=== PATIENT | female | born 1980 | race Caucasian/White ===

== ENCOUNTER 2017-07-03 21:05 | Emergency (ER) | payer BC ==
[2017-07-03] MEDS ORDERED: cefTRIAXone 2 GM in Premix Bag 1 BAG IV ONE (21:56)
--- NOTE | 2017-07-03 21:57 | EDM.PDOC ---
ED HPI GENERAL MEDICAL PROBLEM - General Chief Complaint: Skin Complaint Stated Complaint: PAIN/SORE BUTTOCKS/LEGS Time Seen by Provider: 07/03/17 21:35 Source of Information: Reports: Patient History Limitations: Reports: No Limitations - History of Present Illness INITIAL COMMENTS - FREE TEXT/NARRATIVE: History of present illness: [6-year-old female comes in complaining of a cyst on her right inner upper thigh. The [place] that this area has gotten bigger, harder, and more painful and felt it needed to be addressed.] Review of systems: As per history of present illness and below otherwise all systems reviewed and negative. Past medical history: As per history of present illness and as reviewed below otherwise noncontributory. Surgical history: As per history of present illness and as reviewed below otherwise noncontributory. Social history: No reported history of drug or alcohol abuse. Family history: As per history of present illness and as reviewed below otherwise noncontributory. Physical exam: HEENT: Atraumatic, normocephalic, pupils reactive, negative for conjunctival pallor or scleral icterus, mucous membranes moist, throat clear, neck supple, nontender, trachea midline. Lungs: Clear to auscultation, breath sounds equal bilaterally, chest nontender. Heart: S1S2, regular, negative for clicks, rubs, or JVD. Abdomen: Soft, nondistended, nontender. Negative for masses or hepatosplenomegaly. Negative for costovertebral tenderness. Pelvis: Stable nontender. Genitourinary: Deferred. Rectal: Deferred. Extremities: Atraumatic, negative for cords or calf pain. Neurovascular unremarkable. Neuro: Awake, alert, oriented. Cranial nerves II through XII unremarkable. Cerebellum unremarkable. Motor and sensory unremarkable throughout. Exam nonfocal. Skin: Small approximately 3 cm in circumference abscess to top of inner right thigh more posterior Patient acknowledges that her blood sugars been out of control secondary to noncompliance with medication indicated she's been feeling unwell and has not refilled any of her diabetic medications for her blood sugars been running in the 2 to 300s. This is consistent with appearances of wounds on her body as noted. Area to upper right thigh cleaned with Betadine swabs then 1% lidocaine with epi injected until anesthesia appreciated. An 11 blade used to incise an area of approximately 1-1/2 cm with purulent drainage expressed culture swab obtained. Diagnostics: [Culture of wound] Therapeutics: [Dilaudid, Zofran, Rocephin 2 g IV] Impression: [Cellulitic abscess] Plan: [Oral antibiotics follow-up with PCP] Definitive disposition and diagnosis as appropriate pending reevaluation and review of above. Right Perineal Area Pain Score (Numeric/FACES): 8 - Related Data Allergies Allergy/AdvReac Type Severity Reaction Status Date / Time Antihistamines - Alkylamine Allergy Hives Verified 07/03/17 21:38 aspirin Allergy Hives Verified 07/03/17 21:38 Pain medication Allergy Cannot Uncoded 05/07/16 17:31 Remember Home Meds: Home Meds Hydrocodone/Acetaminophen [[place] 5-325 Tablet] 1 tab PO Q6H PRN #15 tablet 05/07 [Rx] Insulin Aspart [Novolog] 5 - 10 unit SQ TIDAC #1 box 05/07/16 [Rx] Insulin Glarg,Human.Rec.Analog [LantUS Solostar] 100 units SUBCUT DAILY [History] Sertraline HCl [Zoloft] 150 mg PO DAILY 05/07/16 [History] Past Medical History - Past Health History Medical/Surgical History: Denies Medical/Surgical History HEENT History: Reports: None Cardiovascular History: Reports: High Cholesterol Respiratory History: Reports: None Gastrointestinal History: Reports: None Genitourinary History: Reports: Diabetic Nephropathy, UTI, Recurrent Other Genitourinary History: Yeast infections 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: Other OB/BYN History: Genital warts Musculoskeletal History: Reports: None Neurological History: Reports: Neuropathy, Diabetic Psychiatric History: Reports: Anxiety, Depression, PTSD Endocrine/Metabolic History: Reports: Diabetes, Type II Hematologic History: Reports: None Immunologic History: Reports: None Oncologic (Cancer) History: Reports: None Dermatologic History: Reports: None - Infectious Disease History Infectious Disease History: Reports: Chicken Pox - Past Surgical History Head Surgeries/Procedures: Reports: None HEENT Surgical History: Reports: Tonsillectomy Cardiovascular Surgical History: Reports: None Respiratory Surgical History: Reports: None GI Surgical History: Reports: None Female Surgical History: Reports: Section Neurological Surgical History: Reports: None Musculoskeletal Surgical History: Reports: None Social & Family History - Family History Family Medical History: Noncontributory - Tobacco Use Smoking Status *Q: Current Every Day Smoker Years of Tobacco use: 23 Packs/Tins Daily: 1 Used Tobacco, but Quit: No Second Hand Smoke Exposure: No - Caffeine Use Caffeine Use: Reports: Coffee, Energy Drinks, Soda - Alcohol Use Days Per Week of Alcohol Use: 0 - Recreational Drug Use Recreational Drug Use: No ED ROS GENERAL - Review of Systems Review Of Systems: See Below (See history of present illness) ED EXAM, SKIN/RASH Exam: See Below (See history of present illness) Course - Vital Signs Last Recorded V/S: Last Vital Signs Temp 36.8 C 07/03/17 21:34 Pulse 117 H 07/03/17 21:34 Resp 20 07/03/17 21:34 BP 134/86 07/03/17 21:34 Pulse Ox 97 07/03/17 21:34 - Orders/Labs/Meds Meds: Medications Discontinued Medications Generic Name Dose Route Start Last Admin Trade Name Ofelia PRN Reason Stop Dose Admin Hydromorphone HCl 1 mg 07/03/17 22:56 07/03/17 23:06 Dilaudid IVPUSH 07/03/17 22:57 1 mg ONETIME ONE Administration Ceftriaxone Sodium/Dextrose 2 50 mls @ 100 mls/hr 07/03/17 21:56 07/03/17 22: 12 gm/ Premix IV 07/03/17 22:25 100 mls/hr ONETIME ONE Administration Lidocaine/Epinephrine 20 ml 07/03/17 23:01 07/03/17 23:06 Xylocaine 1% With Epinephrine 1:100,000 INJECT 07/03/17 23:02 20 ml ONETIME ONE Administration Ondansetron HCl 4 mg 07/03/17 22:56 07/03/17 23:06 Zofran IVPUSH 07/03/17 22:57 4 mg ONETIME ONE Administration Departure - Departure Time of Disposition: 23:28 Disposition: Home, Self-Care 01 Condition: Good Clinical Impression: Cellulitis, Abscess - Discharge Information Referrals: Deon Mcleod DO [Primary Care Provider] - Forms: ED Department Discharge Additional Instructions: The following information is given to patients seen in the emergency department who are being discharged to home. This information is to outline your options for follow-up care. We provide all patients seen in our emergency department with a follow-up referral. The need for follow-up, as well as the timing and circumstances, are variable depending upon the specifics of your emergency department visit. If you don't have a primary care physician on staff, we will provide you with a referral. We always advise you to contact your personal physician following an emergency department visit to inform them of the circumstance of the visit and for follow-up with them and/or the need for any referrals to a consulting specialist. The emergency department will also refer you to a specialist when appropriate. This referral assures that you have the opportunity for follow-up care with a specialist. All of these measure are taken in an effort to provide you with optimal care, which includes your follow-up. Under all circumstances we always encourage you to contact your private physician who remains a resource for coordinating your care. When calling for follow-up care, please make the office aware that this follow-up is from your recent emergency room visit. If for any reason you are refused follow-up, please contact the [facility] Emergency Department at and asked to speak to the emergency department charge nurse. Take medication as directed Follow up with PCP in 3-5 days Return to ED as needed as discussed
[2017-07-03] MEDS ORDERED: Ondansetron 4 MG/2 ML SDV IVPUSH ONE (22:56)
[2017-07-03] MEDS ORDERED: HYDROmorphone 2 MG/ML Syringe IVPUSH ONE (22:56)
[2017-07-03] MEDS ORDERED: Lidocaine 1% with EPINEPHrine 1:100,000 20 ML MDV INJECT ONE (23:01)
[2017-07-03 23:56] VITALS: BP 127/81
== END 2017-07-04 00:02 | disposition home or self-care (01) ==
LOC: MW.ED 21:05
DX: L03.115 Cellulitis of right lower limb (principal); L02.415 Cutaneous abscess of right lower limb; F17.210 Nicotine dependence, cigarettes, uncomplicated; Z88.6 Allergy status to analgesic agent; Z88.8 Allergy status to other drugs, medicaments and biological substances; Z79.4 Long term (current) use of insulin; Z79.899 Other long term (current) drug therapy
CPT/HCPCS: 10060; 87070; 96365; 96375; 99283; J0696; J1170; J2405; 87077; 87186

== ENCOUNTER 2018-01-02 18:52 | Emergency (ER) | payer BC ==
[2018-01-02 20:35] VITALS: BP 133/85
--- NOTE | 2018-01-02 21:28 | EDM.PDOC ---
ED HPI GENERAL MEDICAL PROBLEM - General Chief Complaint: Back Pain or Injury Stated Complaint: BACK PAIN Time Seen by Provider: 01/02/18 21:19 - History of Present Illness INITIAL COMMENTS - FREE TEXT/NARRATIVE: HISTORY AND PHYSICAL: History of present illness: Patient 37-year-old female who presents with a concern of back pain especially chronic for several months she states this started when she fell off a chair she also is history of diabetes she denies fever chills nausea vomiting numbness weakness incontinence or retention bowel or bladder. Denies urinary tract infection signs or symptoms Review of systems: As per history of present illness and below otherwise all systems reviewed and negative. Past medical history: As per history of present illness and as reviewed below otherwise noncontributory. Surgical history: As per history of present illness and as reviewed below otherwise noncontributory. Social history: No reported history of drug or alcohol abuse. Family history: As per history of present illness and as reviewed below otherwise noncontributory. Physical exam: HEENT: Atraumatic, normocephalic, pupils reactive, negative for conjunctival pallor or scleral icterus, mucous membranes moist, throat clear, neck supple, nontender, trachea midline. Lungs: Clear to auscultation, breath sounds equal bilaterally, chest nontender. Heart: S1S2, regular, negative for clicks, rubs, or JVD. Abdomen: Soft, nondistended, nontender. Negative for masses or hepatosplenomegaly. Negative for costovertebral tenderness. Pelvis: Stable nontender. Genitourinary: Deferred. Rectal: Deferred. Extremities: Atraumatic, negative for cords or calf pain. Neurovascular unremarkable. Neuro: Awake, alert, oriented. Cranial nerves II through XII unremarkable. Cerebellum unremarkable. Motor and sensory unremarkable throughout. Exam nonfocal. Back: Patient has paravertebral tenderness at the level of the lumbar spine is no vertebral body or point tenderness patient is able stand on toes back on her heels and sensory are normal deep tendon reflexes are normal Diagnostics: Deferred Therapeutics: None Impression: #1 chronic back pain #2 hyperglycemia history of diabetes Definitive disposition and diagnosis as appropriate pending reevaluation and review of above. [] Low Back Pain Score (Numeric/FACES): 6 - Related Data Allergies Allergy/AdvReac Type Severity Reaction Status Date / Time Antihistamines - Alkylamine Allergy Hives Verified 01/02/18 20:35 aspirin Allergy Hives Verified 01/02/18 20:35 Pain medication Allergy Cannot Uncoded 01/02/18 20:35 Remember Home Meds: Home Meds . 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: Other OB/BYN History: Genital warts Musculoskeletal History: Reports: None Neurological History: Reports: Neuropathy, Diabetic Psychiatric History: Reports: Anxiety, Depression, PTSD Endocrine/Metabolic History: Reports: Diabetes, Type II Hematologic History: Reports: None Immunologic History: Reports: None Oncologic (Cancer) History: Reports: None Dermatologic History: Reports: None - Infectious Disease History Infectious Disease History: Reports: Chicken Pox - Past Surgical History Head Surgeries/Procedures: Reports: None HEENT Surgical History: Reports: Tonsillectomy Cardiovascular Surgical History: Reports: None Respiratory Surgical History: Reports: None GI Surgical History: Reports: None Female Surgical History: Reports: Section Neurological Surgical History: Reports: None Musculoskeletal Surgical History: Reports: None Social & Family History - Family History Family Medical History: Noncontributory - Tobacco Use Smoking Status *Q: Current Every Day Smoker Years of Tobacco use: 25 Packs/Tins Daily: 1 Used Tobacco, but Quit: No Second Hand Smoke Exposure: No - Caffeine Use Caffeine Use: Reports: Coffee, Energy Drinks, Soda, Tea - Alcohol Use Days Per Week of Alcohol Use: 0 - Recreational Drug Use Recreational Drug Use: Yes Drug Use in Last 12 Months: No Recreational Drug Type: Reports: Marijuana/Hashish ED ROS GENERAL - Review of Systems Review Of Systems: ROS reveals no pertinent complaints other than HPI. ED EXAM, GENERAL - Physical Exam Exam: See Below (See dictation) Course - Vital Signs Text/Narrative:: I discussed with patient diagnostic testing and treatment here patient states she is a long-standing diabetic and is poorly controlled general does acknowledge her less than perfect medical compliance she agrees to follow-up LEONIDAS with her private doctor in monitor blood sugar and take her insulin as directed. She will return as needed as discussed she'll be prescribed Ultram and Flexeril Last Recorded V/S: Last Vital Signs Temp 36.3 C 01/02/18 20:32 Pulse 112 H 01/02/18 20:32 Resp 12 01/02/18 20:32 BP 133/85 01/02/18 20:32 Pulse Ox 96 01/02/18 20:32 - Orders/Labs/Meds Labs: Laboratory Tests 01/02/18 Range/Units 20:41 POC Glucose 486 H (60-110) mg/dL Departure - Departure Time of Disposition: 21:27 Disposition: Home, Self-Care 01 Condition: Good Clinical Impression: Back pain, Diabetes, Medical non-compliance - Discharge Information Referrals: PCP,None [Primary Care Provider] - Additional Instructions: The following information is given to patients seen in the emergency department who are being discharged to home. This information is to outline your options for follow-up care. We provide all patients seen in our emergency department with a follow-up referral. The need for follow-up, as well as the timing and circumstances, are variable depending upon the specifics of your emergency department visit. If you don't have a primary care physician on staff, we will provide you with a referral. We always advise you to contact your personal physician following an emergency department visit to inform them of the circumstance of the visit and for follow-up with them and/or the need for any referrals to a consulting specialist. The emergency department will also refer you to a specialist when appropriate. This referral assures that you have the opportunity for followup care with a specialist. All of these measure are taken in an effort to provide you with optimal care, which includes your followup. Under all circumstances we always encourage you to contact your private physician who remains a resource for coordinating your care. When calling for followup care, please make the office aware that this follow-up is from your recent emergency room visit. If for any reason you are refused follow-up, please contact the [facility] emergency department at and asked to speak to the emergency department charge nurse. Continue current medications monitor blood sugar as discussed Ultram Flexeril as prescribed and follow-up private medical doctor LEONIDAS as discussed and return as needed as discussed off work 48 hours]
== END 2018-01-02 21:33 | disposition home or self-care (01) ==
LOC: MW.ED 18:52
DX: M54.5 Low back pain (principal); E11.65 Type 2 diabetes mellitus with hyperglycemia; E11.21 Type 2 diabetes mellitus with diabetic nephropathy; E11.40 Type 2 diabetes mellitus with diabetic neuropathy, unspecified; F17.210 Nicotine dependence, cigarettes, uncomplicated; E78.00 Pure hypercholesterolemia, unspecified; Z88.8 Allergy status to other drugs, medicaments and biological substances; Z88.6 Allergy status to analgesic agent; Z91.19 Patient's noncompliance with other medical treatment and regimen
CPT/HCPCS: 82962; 99283

== ENCOUNTER 2018-05-06 20:58 | Emergency (ER) | payer BC ==
--- NOTE | 2018-05-06 21:18 | EDM.PDOC ---
ED HPI GENERAL MEDICAL PROBLEM - General Chief Complaint: Skin Complaint Stated Complaint: HAS A PAINFUL CYST Time Seen by Provider: 05/06/18 21:15 Source of Information: Reports: Patient History Limitations: Reports: No Limitations - History of Present Illness INITIAL COMMENTS - FREE TEXT/NARRATIVE: HISTORY AND PHYSICAL: []37-year-old female presents with an abscess to her groin History of Present Illness: []Patient states she's had abscess in this area previously and has had them lanced She states this has been present for the last 3 days and now was increased in size Review of Systems: As per history of present illness and below otherwise all systems reviewed and negative. Past medical history: As per history of present illness and as reviewed below otherwise noncontributory. Surgical history: As per history of present illness and as reviewed below otherwise noncontributory. Social history: No reported history of drug or alcohol abuse. Family history: As per history of present illness and as reviewed below otherwise noncontributory. Physical exam: Alert and oriented female answering questions appropriately in full sentences without any shortness of breath. She is nontoxic in appearance. Vital signs reviewed. HEENT: Atraumatic, normocehpalic, pupils reactive, negative for conjunctival pallor or scleral icterus, mucous membranes moist, throat clear, neck supple, nontender, trachea midline. Lungs: Clear to auscultation, breath sounds equal bilaterally, chest non tender. Heart: S1S2, regular, negative for clicks, rubs, or JVD. Abdomen: Soft, nondistended, nontender. Negative for masses or hepatossplenmegaly. Negative for costovertebral tenderness. Pelvis: Stable nontender. Right groin with abscess. Approximately 2 cm diameter firm to touch. there is whitening to the top of the skin Genitourinary: Deferred. Rectal: Deferred Extremities: Atraumatic, negative for cords or calf pain. Neurovascular unremarkable. Neuro: Awake, alert, oriented. Cranial nerves II through XII unremarkable. Cerebellum unremarkable. Motor and sensory unremarkable throughout. Exam nonfocal. I&D was completed with using 1% lidocaine 3 mL. #11 blade large amount of purulent material was expelled then half inch iodoform gauze was utilized and 2 inches into the area. This is to be removed in 2 days Notable that patient's blood pressure is slightly elevated she needs to follow- up in the clinic with her provider to follow-up with her hypertension Diagnostics: [] Therapeutics: []I & D Impression: []abcess right groin Plan: []discharge home cephalexin 500mg tid for 7 days Packing to b removed in two days Follow up with your primary care provider Turned to the emergency room as directed Definitive disposition and diagnosis as appropriate pending reevaluation and review of above. Onset: Gradual Duration: Day(s): right groin Pain Score (Numeric/FACES): 5 - Related Data Allergies Allergy/AdvReac Type Severity Reaction Status Date / Time Antihistamines - Alkylamine Allergy Hives Verified 05/06/18 21:15 aspirin Allergy Hives Verified 05/06/18 21:15 Pain medication Allergy Cannot Uncoded 05/06/18 21:15 Remember Home Meds: Home Meds . 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 Musculoskeletal History: Reports: None Neurological History: Reports: Neuropathy, Diabetic Psychiatric History: Reports: Anxiety, Depression, PTSD Endocrine/Metabolic History: Reports: Diabetes, Type II Hematologic History: Reports: None Immunologic History: Reports: None Oncologic (Cancer) History: Reports: None Dermatologic History: Reports: None - Infectious Disease History Infectious Disease History: Reports: Chicken Pox - Past Surgical History Head Surgeries/Procedures: Reports: None HEENT Surgical History: Reports: Tonsillectomy Cardiovascular Surgical History: Reports: None Respiratory Surgical History: Reports: None GI Surgical History: Reports: None Female Surgical History: Reports: Section Neurological Surgical History: Reports: None Musculoskeletal Surgical History: Reports: None Social & Family History - Family History Family Medical History: Noncontributory - Caffeine Use Caffeine Use: Reports: Coffee, Energy Drinks, Soda, Tea ED ROS GENERAL - Review of Systems Review Of Systems: ROS reveals no pertinent complaints other than HPI. ED EXAM, SKIN/RASH Exam: See Below ED SKIN PROCEDURES - I&D Site: Right groin/pubis Skin Prep: Providone-Iodine (Betadine) Local Anesthesia: Lidocaine: 1% Plain Local Anesthetic Volume: 3cc Area Incised With: 11 Blade Drainage: Purulent, Large Amount Probed to Break Up Loculations: Yes Packed With: 1/2 in. Iodoform Sterile Dressinx4(s) Complications: No Course - Vital Signs Last Recorded V/S: Last Vital Signs Temp 36.4 C 05/06/18 21:11 Pulse 107 H 05/06/18 21:11 Resp 18 05/06/18 21:11 BP 172/102 H 05/06/18 21:11 Pulse Ox 96 05/06/18 21:11 - Orders/Labs/Meds Meds: Medications Discontinued Medications Generic Name Dose Route Start Last Admin Trade Name Ofelia PRN Reason Stop Dose Admin Lidocaine HCl 5 ml 05/06/18 21:18 05/06/18 21:23 Xylocaine-Mpf 1% INJECT 05/06/18 21:19 5 ml ONETIME ONE Administration Departure - Departure Time of Disposition: 21:34 Disposition: Home, Self-Care 01 Condition: Good Clinical Impression: Abscess - Discharge Information *PRESCRIPTION DRUG MONITORING PROGRAM REVIEWED*: Not Applicable *COPY OF PRESCRIPTION DRUG MONITORING REPORT IN PATIENT JACQUELINE: Not Applicable Instructions: Skin Abscess Referrals: PCP,None [Primary Care Provider] - Forms: ED Department Discharge Additional Instructions: The following information is given to patients seen in the emergency department who are being discharged to home. This information is to outline your options for follow-up care. We provide all patients seen in our emergency department with a follow-up referral. The need for follow-up, as well as the timing and circumstances, are variable depending upon the specifics of your emergency department visit. If you don't have a primary care physician on staff, we will provide you with a referral. We always advise you to contact your personal physician following an emergency department visit to inform them of the circumstance of the visit and for follow-up with them and/or the need for any referrals to a consulting specialist. The emergency department will also refer you to a specialist when appropriate. This referral assures that you have the opportunity for followup care with a specialist. All of these measure are taken in an effort to provide you with optimal care, which includes your followup. Under all circumstances we always encourage you to contact your private physician who remains a resource for coordinating your care. When calling for followup care, please make the office aware that this follow-up is from your recent emergency room visit. If for any reason you are refused follow-up, please contact the [facility] emergency department at and asked to speak to the emergency department charge nurse. discharge home cephalexin 500mg tid for 7 days Hydrocodone/APAP 5/325 1 tablet 3 times a day when necessary pain#10NR Packing to b removed in two days Follow up with your primary care provider Turned to the emergency room as directed
[2018-05-06 21:44] VITALS: BP 167/107
== END 2018-05-06 21:45 | disposition home or self-care (01) ==
LOC: MW.ED 20:58
DX: L02.214 Cutaneous abscess of groin (principal); E11.9 Type 2 diabetes mellitus without complications; Z88.6 Allergy status to analgesic agent; Z88.8 Allergy status to other drugs, medicaments and biological substances
CPT/HCPCS: 99283

== ENCOUNTER 2019-02-02 08:42 | Emergency (ER) | payer BC | END 2019-02-02 08:57 | disposition left against medical advice (07) | LOC: MW.ED 08:42 | DX: Z53.21 Procedure and treatment not carried out due to patient leaving prior to being seen by health care provider (principal) ==

== ENCOUNTER 2020-11-30 17:13 | Emergency (ER) | payer BC ==
--- NOTE | 2020-11-30 17:44 | EDM.PDOC ---
<Tu Collins - Last Filed: 11/30/20 19:09> ED HPI GENERAL MEDICAL PROBLEM - General Chief Complaint: General Stated Complaint: NOT FEELING WELL, DARK SPOTS ON HANDS Time Seen by Provider: 11/30/20 17:25 - History of Present Illness INITIAL COMMENTS - FREE TEXT/NARRATIVE: 39yoF with a h/o IDDM presenting with not feeling well and red spots on her left arm. Pt first noticed a red spot on the ulnar side of her left middle finger at the level of the PIP last night. Pt now with 3 additional small red spots on on the proximal palm and 1 on the wrist over the radial artery. They are tender, no itching. Patient also reports feeling shaky as if her blood sugar is low but when she checked her sugar it was 149. Patient typically does get symptoms of hypoglycemia if she drops into the 90s. No nausea no vomiting no chest pain but palpitations. No syncope or near syncope. Patient acknowledges feeling stressed out because she is in the hospital but denies feeling anxious typically. No abdominal pain no fevers or chills patient received her first Covid vaccination around a week ago. - Related Data Allergies Allergy/AdvReac Type Severity Reaction Status Date / Time Antihistamines - Alkylamine Allergy Hives Verified 11/30/20 17:38 aspirin Allergy Hives Verified 11/30/20 17:38 Pain medication Allergy Cannot Uncoded 11/30/20 17:38 Remember Home Meds: Home Meds Insulin Aspart [NovoLOG] See Protocol SQ WITHMEALSANDBED #3 pen MDD 50 units 05/28/19 [Rx] Insulin Glarg,Human.Rec.Analog [Lantus Solostar] 15 unit SUBCUT DAILY #2 pen 05/28/19 [Rx] Levothyroxine 75 mcg PO ACBREAKFAST 11/30/20 [History] Sertraline HCl [Zoloft] 100 mg PO DAILY 11/30/20 [History] hydroCHLOROthiazide [Hydrochlorothiazide] 12.5 mg PO 11/30/20 [History] Past Medical History - Past Health History Medical/Surgical History: Denies Medical/Surgical History HEENT History: Reports: None Cardiovascular History: Reports: High Cholesterol Respiratory History: Reports: None Gastrointestinal History: Reports: None Genitourinary History: Reports: Diabetic Nephropathy, UTI, Recurrent Other Genitourinary History: Yeast infections 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: Genital warts Musculoskeletal History: Reports: None Neurological History: Reports: Neuropathy, Diabetic Psychiatric History: Reports: Anxiety, Depression, PTSD Endocrine/Metabolic History: Reports: Diabetes, Type II Other Endocrine/Metabolic History: should be on insulin but "I just dont take it" Hematologic History: Reports: None Immunologic History: Reports: None Oncologic (Cancer) History: Reports: None Dermatologic History: Reports: None - Infectious Disease History Infectious Disease History: Reports: Chicken Pox - Past Surgical History Head Surgeries/Procedures: Reports: None HEENT Surgical History: Reports: Tonsillectomy Cardiovascular Surgical History: Reports: None Respiratory Surgical History: Reports: None GI Surgical History: Reports: None Female Surgical History: Reports: Section Neurological Surgical History: Reports: None Musculoskeletal Surgical History: Reports: None Social & Family History - Family History Family Medical History: No Pertinent Family History Endocrine/Metabolic: Reports: Diabetes, type II Oncologic: Reports: Breast, Uterine - Caffeine Use Caffeine Use: Reports: Coffee, Energy Drinks, Soda, Tea ED ROS GENERAL - Review of Systems Review Of Systems: See Below Free Text/Narrative/Comment: General: No fever. Skin: Per HPI Eyes: No vision problems. ENT: No sore throat. Neck: No neck stiffness. Respiratory: Per HPI Cardiac: No chest pain. Gastrointestinal: No nausea, vomiting or abdominal pain. Urinary: No dysuria. Musculoskeletal: No myalgias/arthralgias. Neurologic: No headache. ED EXAM, GENERAL - Physical Exam Exam: See Below Free Text/Narrative:: General Appearance: No acute distress, appears comfortable Skin: Tender minimally raised erythematous lesions in the locations described in the HPI 1 on the ulnar side of the PIP middle finger one on the left thenar eminence and 1 just proximal to the wrist crease. They are minimally tender. HEENT: Normocephalic/atraumatic, sclera anicteric, mucous membranes moist Neck: Normal range of motion Chest and Lungs: Bilateral breath sounds, clear to auscultation Cardiovascular: Mildly tachycardic rate, regular rhythm Abdomen: Soft, non-tender Back: Normal Musculoskeletal: No edema or tenderness Neurologic: Awake, alert, no obvious deficits, moving all extremities Psychiatric: Appropriate, cooperative #1 Interpretation EKG Date: 11/30/20 Time: 18:10 EKG Interpretation Comments: Sinus tachycardia rate of 106 normal intervals QTC 464 no acute ischemia. Departure - Departure Disposition: Home, Self-Care 01 Clinical Impression: Rash Hypertension Qualifiers: Hypertension type: unspecified Qualified Code(s): I10 - Essential (primary) hypertension - Discharge Information Instructions: Rash, Adult Referrals: Violette Chester NP [Primary Care Provider] - Forms: ED Department Discharge Additional Instructions: Your seen and evaluated in the ER today secondary to a rash in your hand. All your blood tests today in the ER are normal. The etiology of your symptoms today have not been identified in the ER however we were able to rule out a lot of the emergent life-threatening causes of rashes. Please make an appointment to see your family doctor on Wednesday for reevaluation so they can assess and assist you with further diagnostic plans for your rash. Return to the ER for any new or concerning symptoms. The following information is given to patients seen in the emergency department who are being discharged to home. This information is to outline your options for follow-up care. We provide all patients seen in our emergency department with a follow-up referral. The need for follow-up, as well as the timing and circumstances, are variable depending upon the specifics of your emergency department visit. If you don't have a primary care physician on staff, we will provide you with a referral. We always advise you to contact your personal physician following an emergency department visit to inform them of the circumstance of the visit and for follow-up with them and/or the need for any referrals to a consulting specialist. The emergency department will also refer you to a specialist when appropriate. This referral assures that you have the opportunity for follow-up care with a specialist. All of these measure are taken in an effort to provide you with optimal care, which includes your follow-up. Under all circumstances we always encourage you to contact your private physician who remains a resource for coordinating your care. When calling for follow-up care, please make the office aware that this follow-up is from your recent emergency room visit. If for any reason you are refused follow-up, please contact the [facility] Emergency Department at and asked to speak to the emergency department charge nurse. Mark Capps [facility] - Primary [facility] [address] [place] [id number] [address] [address] Sepsis Event Note (ED) - Evaluation Sepsis Screening Result: No Definite Risk - Assessment/Plan Assessment:: 39-year-old female presenting with complaints as noted above. The skin findings could represent Osler's nodes. However, the patient has no fever. CBC CMP EKG chest x-ray blood cultures pending. Could also represent lupus though this would be a difficult diagnosis to make in the ER. No findings of heart failure. 1904: Urinalysis added given mild leukocytosis. Pt signed out to Dr. Phillips pending remaining results reassessment and final disposition. <Omkar Phillips - Last Filed: 11/30/20 20:24> ED HPI GENERAL MEDICAL PROBLEM - History of Present Illness INITIAL COMMENTS - FREE TEXT/NARRATIVE: 7 PM: Signout received by me at 7 PM. Patient's labs are all within normal limits. Patient's urinalysis is normal. I reevaluate the patient and have reviewed all the results with her. Patient is complaining of small palpable rash on her left hand that are slightly tender. Etiology of this rash is uncl ear. Patient reports she also has a rash on the right side of her tongue that is tender. Unclear if these are related or not. At this time, the rash that she is exhibiting does not she has the characteristics of a pathological rash that would require emergent therapy/diagnosis. I discussed with the patient that she will likely need to follow-up with her primary care physician so they can continue to monitor the rash as it changes for any signs or symptoms or clues as to the origin of the rash. At this time, patient feels safe to go home. I feel that patient does not meet criteria for further ER or inpatient evaluation. Patient has been instructed to call her doctor on Wednesday to be assessed by them. Reassessment at the time of disposition demonstrates that the patient is in no acute distress. The patient has remained stable throughout the entire ED visit and is without objective evidence for acute process requiring urgent intervention or hospitalization. The patient is stable for discharge, counseling is provided as documented above, discussed symptomatic treatment and specific conditions for return. I have spoken with the patient/caregiver and discussed todays findings, in addition to providing specific details for the plan of care. Questions are answered and there is agreement with the plan. Course - Vital Signs Last Recorded V/S: Last Vital Signs Temp 99.4 F 11/30/20 19:24 Pulse 103 H 11/30/20 19:24 Resp 18 11/30/20 19:24 BP 137/85 11/30/20 19:24 Pulse Ox 94 L 11/30/20 19:24 - Orders/Labs/Meds Orders: Active Orders 24 hr Category Date Time Status EKG 12 Lead [EKG Documentation Completion] [RC] STAT Care 11/30/20 17:41 Active CULTURE BLOOD [BC] Stat Lab 11/30/20 18:35 Received CULTURE BLOOD [BC] Stat Lab 11/30/20 18:45 Received Blood Culture x2 Reflex Set [OM.PC] Stat Oth 11/30/20 18:12 Ordered Labs: Laboratory Tests 11/30/20 11/30/20 11/30/20 Range/Units 18:12 18:12 19:21 WBC 14.39 H (4.0-11.0) K/uL RBC 4.87 (4.30-5.90) M/uL Hgb 11.5 L (12.0-16.0) g/dL Hct 36.6 (36.0-46.0) % MCV 75.2 L (80.0-98.0) fL MCH 23.6 L (27.0-32.0) pg MCHC 31.4 (31.0-37.0) g/dL RDW Std Deviation 45.0 (28.0-62.0) fl RDW Coeff of Mile 16 H (11.0-15.0) % Plt Count 453 H (150-400) K/uL MPV 9.40 (7.40-12.00) fL Neut % (Auto) 63.7 (48.0-80.0) % Lymph % (Auto) 25.9 (16.0-40.0) % [place] % (Auto) 7.5 (0.0-15.0) % Eos % (Auto) 2.6 (0.0-7.0) % Baso % (Auto) 0.3 (0.0-1.5) % Neut # (Auto) 9.2 H (1.4-5.7) K/uL Lymph # (Auto) 3.7 H (0.6-2.4) K/uL [place] # (Auto) 1.1 H (0.0-0.8) K/uL Eos # (Auto) 0.4 (0.0-0.7) K/uL Baso # (Auto) 0.1 (0.0-0.1) K/uL Nucleated RBC % 0.0 /100WBC Nucleated RBCs # 0 K/uL Sodium 135 L (136-145) mmol/L Potassium 4.3 (3.5-5.1) mmol/L Chloride 100 (98-107) mmol/L Carbon Dioxide 22.4 (21.0-32.0) mmol/L BUN 19 H (7.0-18.0) mg/dL Creatinine 0.8 (0.6-1.0) mg/dL Est Cr Clr Drug Dosing 73.19 mL/min Estimated GFR (MDRD) > 60.0 ml/min Glucose 111 H (74-106) mg/dL Calcium 8.8 (8.5-10.1) mg/dL Total Bilirubin 0.1 L (0.2-1.0) mg/dL AST 15 (15-37) IU/L ALT 23 (14-63) IU/L Alkaline Phosphatase 142 H (46-116) U/L Troponin I < 0.050 (0.000-0.056) ng/mL Total Protein 7.8 (6.4-8.2) g/dL Albumin 2.9 L (3.4-5.0) g/dL Globulin 4.9 H (2.6-4.0) g/dL Albumin/Globulin Ratio 0.6 L (0.9-1.6) Urine Color YELLOW Urine Appearance SLT CLOUDY Urine pH 7.0 (5.0-8.0) Ur Specific [place] 1.025 (1.001-1.035) Urine Protein 100 H (NEGATIVE) mg/dL Urine Glucose (UA) NEGATIVE (NEGATIVE) mg/dL Urine Ketones NEGATIVE (NEGATIVE) mg/dL Urine Occult Blood NEGATIVE (NEGATIVE) Urine Nitrite NEGATIVE (NEGATIVE) Urine Bilirubin NEGATIVE (NEGATIVE) Urine Urobilinogen 0.2 (<2.0) EU/dL Ur Leukocyte Esterase NEGATIVE (NEGATIVE) Urine RBC 0-2 (0-2/HPF) Urine WBC 0-1 (0-5/HPF) Ur Epithelial Cells FEW (NONE-FEW) Urine Bacteria 1+ H (NEGATIVE) Urine HCG, Qual (NEGATIVE) 11/30/20 Range/Units 19:21 WBC (4.0-11.0) K/uL RBC (4.30-5.90) M/uL Hgb (12.0-16.0) g/dL Hct (36.0-46.0) % MCV (80.0-98.0) fL MCH (27.0-32.0) pg MCHC (31.0-37.0) g/dL RDW Std Deviation (28.0-62.0) fl RDW Coeff of Mile (11.0-15.0) % Plt Count (150-400) K/uL MPV (7.40-12.00) fL Neut % (Auto) (48.0-80.0) % Lymph % (Auto) (16.0-40.0) % [place] % (Auto) (0.0-15.0) % Eos % (Auto) (0.0-7.0) % Baso % (Auto) (0.0-1.5) % Neut # (Auto) (1.4-5.7) K/uL Lymph # (Auto) (0.6-2.4) K/uL [place] # (Auto) (0.0-0.8) K/uL Eos # (Auto) (0.0-0.7) K/uL Baso # (Auto) (0.0-0.1) K/uL Nucleated RBC % /100WBC Nucleated RBCs # K/uL Sodium (136-145) mmol/L Potassium (3.5-5.1) mmol/L Chloride (98-107) mmol/L Carbon Dioxide (21.0-32.0) mmol/L BUN (7.0-18.0) mg/dL Creatinine (0.6-1.0) mg/dL Est Cr Clr Drug Dosing mL/min Estimated GFR (MDRD) ml/min Glucose (74-106) mg/dL Calcium (8.5-10.1) mg/dL Total Bilirubin (0.2-1.0) mg/dL AST (15-37) IU/L ALT (14-63) IU/L Alkaline Phosphatase (46-116) U/L Troponin I (0.000-0.056) ng/mL Total Protein (6.4-8.2) g/dL Albumin (3.4-5.0) g/dL Globulin (2.6-4.0) g/dL Albumin/Globulin Ratio (0.9-1.6) Urine Color Urine Appearance Urine pH (5.0-8.0) Ur Specific [place] (1.001-1.035) Urine Protein (NEGATIVE) mg/dL Urine Glucose (UA) (NEGATIVE) mg/dL Urine Ketones (NEGATIVE) mg/dL Urine Occult Blood (NEGATIVE) Urine Nitrite (NEGATIVE) Urine Bilirubin (NEGATIVE) Urine Urobilinogen (<2.0) EU/dL Ur Leukocyte Esterase (NEGATIVE) Urine RBC (0-2/HPF) Urine WBC (0-5/HPF) Ur Epithelial Cells (NONE-FEW) Urine Bacteria (NEGATIVE) Urine HCG, Qual NEGATIVE (NEGATIVE) Departure - Departure Time of Disposition: 20:23 Sepsis Event Note (ED) - Focused Exam Vital Signs: Vital Signs Temp Pulse Resp BP Pulse Ox 11/30/20 19:24 99.4 F 103 H 18 137/85 94 L 11/30/20 17:32 98.0 F 111 H 18 185/100 H 94 L
[2020-11-30 18:42] LABS: BLOOD UREA NITROGEN,BUN 19 mg/dL (7.0-18.0); CARBON DIOXIDE,CO2 22.4 mmol/L (21.0-32.0); CHLORIDE,CL 100 mmol/L (98-107); GLUCOSE RANDOM 111 mg/dL (74-106); POTASSIUM,K 4.3 mmol/L (3.5-5.1); SODIUM,NA 135 mmol/L (136-145)
[2020-11-30 20:32] VITALS: BP 135/82; PULSE 98
== END 2020-11-30 20:32 | disposition home or self-care (01) ==
LOC: MW.ED 17:13
DX: R21 Rash and other nonspecific skin eruption (principal); I10 Essential (primary) hypertension; E11.21 Type 2 diabetes mellitus with diabetic nephropathy; E11.40 Type 2 diabetes mellitus with diabetic neuropathy, unspecified; Z79.4 Long term (current) use of insulin; Z79.899 Other long term (current) drug therapy; Z88.6 Allergy status to analgesic agent; Z88.8 Allergy status to other drugs, medicaments and biological substances
CPT/HCPCS: 36415; 80053; 81001; 81025; 84484; 85025; 87040; 93005; 93010; 99283; 99285-25

== ENCOUNTER 2021-03-17 21:09 | Emergency (ER) | payer BC ==
[2021-03-17] MEDS ORDERED: Sodium Chloride 0.9% 10 ML Syringe FLUSH PRN (21:43)
[2021-03-17] MEDS ORDERED: Sodium Chloride 0.9% 2.5 ML Syringe FLUSH PRN (21:43)
--- NOTE | 2021-03-17 21:55 | EDM.PDOC ---
ED HPI GENERAL MEDICAL PROBLEM - General Chief Complaint: General Stated Complaint: SHORTNESS OF BREATH Time Seen by Provider: 03/17/21 23:05 Source of Information: Reports: Patient History Limitations: Reports: No Limitations - History of Present Illness INITIAL COMMENTS - FREE TEXT/NARRATIVE: 40-year-old female with history of HLD, diabetes presents with 2 episodes of chest pain, associated with shortness of breath and cough today. Her chest pain is intermittent, described as diffuse anterior chest burning pressure with palpitation. Her first episode was as she was masturbating with a dildo, and the second episode was as she was performing fellatio on her partner with a small penis. She is currently chest pain free. She denies nausea, vomiting, abd pain. ROS: A 10-point review of systems, other than pertinent positives and negatives as stated per HPI, is otherwise negative Past medical history: No additional pertinent history Past Surgical history: No additional pertinent history Social history: No additional pertinent history Family history: No additional pertinent history PHYSICAL EXAM General: AOx4, GCS = 15, No distress, BMI = 47 HEENT: dry mucous membrane Neck: supple, no meningismus, no Kernig or Brudzinski Cardiac: S1S2 tachycardia Respiratory: CTAB, no crackles or rales, no wheezing Abdomen: Soft, nontender, no rebound or guarding, nondistended, no pulsatile mass. Back: nontender Musculoskeletal: NVI distally, no deformity Neuro: No focal deficits, CN 2 - 12 WNL. - Related Data Allergies Allergy/AdvReac Type Severity Reaction Status Date / Time Antihistamines - Alkylamine Allergy Hives Verified 11/30/20 17:38 aspirin Allergy Hives Verified 11/30/20 17:38 Pain medication Allergy Cannot Uncoded 11/30/20 17:38 Remember Home Meds: Home Meds Insulin Aspart [NovoLOG] See Protocol SQ WITHMEALSANDBED #3 pen MDD 50 units 05/28/19 [Rx] Insulin Glarg,Human.Rec.Analog [Lantus Solostar] 15 unit SUBCUT DAILY #2 pen 05/28/19 [Rx] Levothyroxine 75 mcg PO ACBREAKFAST 11/30/20 [History] Sertraline HCl [Zoloft] 100 mg PO DAILY 11/30/20 [History] hydroCHLOROthiazide [Hydrochlorothiazide] 12.5 mg PO 11/30/20 [History] Past Medical History - Past Health History Medical/Surgical History: Denies Medical/Surgical History HEENT History: Reports: None Cardiovascular History: Reports: High Cholesterol Respiratory History: Reports: None Gastrointestinal History: Reports: None Genitourinary History: Reports: Diabetic Nephropathy, UTI, Recurrent Other Genitourinary History: Yeast infections 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 PLACEMENT SPECIALIST History: Genital warts Musculoskeletal History: Reports: None Neurological History: Reports: Neuropathy, Diabetic Psychiatric History: Reports: Anxiety, Depression, PTSD Endocrine/Metabolic History: Reports: Diabetes, Type II Other Endocrine/Metabolic History: should be on insulin but "I just dont take it" Hematologic History: Reports: None Immunologic History: Reports: None Oncologic (Cancer) History: Reports: None Dermatologic History: Reports: None - Infectious Disease History Infectious Disease History: Reports: Chicken Pox - Past Surgical History Head Surgeries/Procedures: Reports: None HEENT Surgical History: Reports: Tonsillectomy Other HEENT Surgeries/Procedures: 2 throat surgeries Cardiovascular Surgical History: Reports: None Respiratory Surgical History: Reports: None GI Surgical History: Reports: None Female Surgical History: Reports: Section Endocrine Surgical History: Reports: None Neurological Surgical History: Reports: None Musculoskeletal Surgical History: Reports: None Dermatological Surgical History: Reports: None Social & Family History - Family History Family Medical History: No Pertinent Family History Endocrine/Metabolic: Reports: Diabetes, type II Oncologic: Reports: Breast, Uterine - Caffeine Use Caffeine Use: Reports: Energy Drinks ED ROS GENERAL - Review of Systems Review Of Systems: See Below (see dictation) ED EXAM, GENERAL - Physical Exam Exam: See Below (see dictation) #1 Interpretation EKG Interpretation Comments: Heart rate = 117 bpm, sinus tachycardia, normal QRS interval, no STEMI. EKG and rhythm strip interpreted by me at 2123 Course - Vital Signs Last Recorded V/S: Last Vital Signs Temp 98.6 F 03/17/21 21:29 Pulse 112 H 03/18/21 00:21 Resp 20 03/18/21 00:21 BP 179/109 H 03/18/21 00:21 Pulse Ox 96 03/18/21 00:21 - Orders/Labs/Meds Orders: Active Orders 24 hr Category Date Time Status EKG Documentation Completion [RC] STAT Care 03/17/21 21:24 Active CORONAVIRUS COVID-19 NGUYEN [MOLEC] Stat Lab 03/18/21 00:32 Ordered PTT,PARTIAL THROMBOPLSTIN TIME [COAG] Stat Lab 03/18/21 00:33 Ordered Heparin Sodium Med 03/18/21 00:33 Once 4,000 units IVPUSH .BOLUS ONE Heparin Sodium/0.45% NaCl [Heparin 25,000 Units in 1/2 Med 03/18/21 00:45 Ordered NS 500 ML] 500 ml IV TITRATE Sodium Chloride 0.9% [Saline Flush] Med 03/17/21 21:43 Active 10 ml FLUSH ASDIRECTED PRN Sodium Chloride 0.9% [Saline Flush] Med 03/17/21 21:43 Active 2.5 ml FLUSH ASDIRECTED PRN diphenhydrAMINE [Benadryl] Med 03/18/21 00:34 Once 50 mg IVPUSH ONETIME ONE Saline Lock Insert [OM.PC] Stat Oth 03/17/21 21:43 Ordered Medication Orders Heparin Sodium (Porcine) (Heparin Sodium 5,000 Units/Ml Vial) 4,000 units IVPUSH .BOLUS ONE; Protocol Stop: 03/18/21 00:34 Heparin Sodium/Sodium Chloride (Heparin 25,000 Units In 1/2 Ns 500 Ml) 500 mls @ 2.359 mls/hr IV TITRATE BRENDA; Protocol Sodium Chloride (Sodium Chloride 0.9% 10 Ml Syringe) 10 ml FLUSH ASDIRECTED PRN PRN Reason: Keep Vein Open Last Admin: 03/17/21 22:21 Dose: 10 ml Documented by: MARTIN Sodium Chloride (Sodium Chloride 0.9% 2.5 Ml Syringe) 2.5 ml FLUSH ASDIRECTED PRN PRN Reason: Keep Vein Open Last Admin: 03/17/21 22:21 Dose: 2.5 ml Documented by: MARTIN Labs: Laboratory Tests 03/17/21 03/17/21 03/17/21 Range/Units 22:29 22:29 22:57 WBC 17.08 H (4.0-11.0) K/uL RBC 5.09 (4.30-5.90) M/uL Hgb 11.6 L (12.0-16.0) g/dL Hct 36.9 (36.0-46.0) % MCV 72.5 L (80.0-98.0) fL MCH 22.8 L (27.0-32.0) pg MCHC 31.4 (31.0-37.0) g/dL RDW Std Deviation 44.2 (28.0-62.0) fl RDW Coeff of [place] 17 H (11.0-15.0) % Plt Count 465 H (150-400) K/uL MPV 9.60 (7.40-12.00) fL Neut % (Auto) 72.1 (48.0-80.0) % Lymph % (Auto) 21.5 (16.0-40.0) % [place] % (Auto) 6.0 (0.0-15.0) % Eos % (Auto) 0.0 (0.0-7.0) % Baso % (Auto) 0.4 (0.0-1.5) % Neut # (Auto) 12.3 H (1.4-5.7) K/uL Lymph # (Auto) 3.7 H (0.6-2.4) K/uL [place] # (Auto) 1.0 H (0.0-0.8) K/uL Eos # (Auto) 0.0 (0.0-0.7) K/uL Baso # (Auto) 0.1 (0.0-0.1) K/uL Nucleated RBC % 0.0 /100WBC Nucleated RBCs # 0 K/uL D-Dimer, Quantitative (0.0-0.50) mg/L FEU Sodium (136-145) mmol/L Potassium (3.5-5.1) mmol/L Chloride (98-107) mmol/L Carbon Dioxide (21.0-32.0) mmol/L BUN (7.0-18.0) mg/dL Creatinine (0.6-1.0) mg/dL Est Cr Clr Drug Dosing mL/min Estimated GFR (MDRD) ml/min Glucose (74-106) mg/dL Calcium (8.5-10.1) mg/dL Total Bilirubin (0.2-1.0) mg/dL AST (15-37) IU/L ALT (14-63) IU/L Alkaline Phosphatase (46-116) U/L Troponin I (0.000-0.056) ng/mL Total Protein (6.4-8.2) g/dL Albumin (3.4-5.0) g/dL Globulin (2.6-4.0) g/dL Albumin/Globulin Ratio (0.9-1.6) Urine Color YELLOW Urine Appearance SLT CLOUDY Urine pH 6.0 (5.0-8.0) Ur Specific [place] >= 1.030 (1.001-1.035) Urine Protein >=300 H (NEGATIVE) mg/dL Urine Glucose (UA) >=1000 (NEGATIVE) mg/dL Urine Ketones NEGATIVE (NEGATIVE) mg/dL Urine Occult Blood SMALL H (NEGATIVE) Urine Nitrite NEGATIVE (NEGATIVE) Urine Bilirubin NEGATIVE (NEGATIVE) Urine Urobilinogen 0.2 (<2.0) EU/dL Ur Leukocyte Esterase NEGATIVE (NEGATIVE) Urine RBC 0-1 (0-2/HPF) Urine WBC 0-2 (0-5/HPF) Ur Epithelial Cells FEW (NONE-FEW) Urine Bacteria 1+ H (NEGATIVE) Urine Mucus LIGHT (NONE-MOD) Urine Yeast RARE Urine HCG, Qual NEGATIVE (NEGATIVE) 03/17/21 03/17/21 Range/Units 22:57 22:57 WBC (4.0-11.0) K/uL RBC (4.30-5.90) M/uL Hgb (12.0-16.0) g/dL Hct (36.0-46.0) % MCV (80.0-98.0) fL MCH (27.0-32.0) pg MCHC (31.0-37.0) g/dL RDW Std Deviation (28.0-62.0) fl RDW Coeff of [place] (11.0-15.0) % Plt Count (150-400) K/uL MPV (7.40-12.00) fL Neut % (Auto) (48.0-80.0) % Lymph % (Auto) (16.0-40.0) % [place] % (Auto) (0.0-15.0) % Eos % (Auto) (0.0-7.0) % Baso % (Auto) (0.0-1.5) % Neut # (Auto) (1.4-5.7) K/uL Lymph # (Auto) (0.6-2.4) K/uL [place] # (Auto) (0.0-0.8) K/uL Eos # (Auto) (0.0-0.7) K/uL Baso # (Auto) (0.0-0.1) K/uL Nucleated RBC % /100WBC Nucleated RBCs # K/uL D-Dimer, Quantitative 1.64 H (0.0-0.50) mg/L FEU Sodium 136 (136-145) mmol/L Potassium 4.6 (3.5-5.1) mmol/L Chloride 101 (98-107) mmol/L Carbon Dioxide 26.4 (21.0-32.0) mmol/L BUN 14 (7.0-18.0) mg/dL Creatinine 0.8 (0.6-1.0) mg/dL Est Cr Clr Drug Dosing 72.45 mL/min Estimated GFR (MDRD) > 60.0 ml/min Glucose 268 H (74-106) mg/dL Calcium 9.2 (8.5-10.1) mg/dL Total Bilirubin 0.1 L (0.2-1.0) mg/dL AST 20 (15-37) IU/L ALT 21 (14-63) IU/L Alkaline Phosphatase 144 H (46-116) U/L Troponin I 1.298 H* (0.000-0.056) ng/mL Total Protein 7.1 (6.4-8.2) g/dL Albumin 2.5 L (3.4-5.0) g/dL Globulin 4.6 H (2.6-4.0) g/dL Albumin/Globulin Ratio 0.5 L (0.9-1.6) Urine Color Urine Appearance Urine pH (5.0-8.0) Ur Specific [place] (1.001-1.035) Urine Protein (NEGATIVE) mg/dL Urine Glucose (UA) (NEGATIVE) mg/dL Urine Ketones (NEGATIVE) mg/dL Urine Occult Blood (NEGATIVE) Urine Nitrite (NEGATIVE) Urine Bilirubin (NEGATIVE) Urine Urobilinogen (<2.0) EU/dL Ur Leukocyte Esterase (NEGATIVE) Urine RBC (0-2/HPF) Urine WBC (0-5/HPF) Ur Epithelial Cells (NONE-FEW) Urine Bacteria (NEGATIVE) Urine Mucus (NONE-MOD) Urine Yeast Urine HCG, Qual (NEGATIVE) Meds: Medications Generic Name Dose Route Start Last Admin Trade Name Ofelia PRN Reason Stop Dose Admin Heparin Sodium (Porcine) 4,000 units 03/18/21 00:33 Heparin Sodium 5,000 Units/Ml Vial IVPUSH 03/18/21 00:34 .BOLUS ONE Protocol Heparin Sodium/Sodium Chloride 500 mls @ 2.359 mls/hr 03/18/21 00:45 Heparin 25,000 Units In 1/2 Ns 500 Ml IV TITRATE BRENDA Protocol 1 UNITS/KG/HR Sodium Chloride 10 ml 03/17/21 21:43 03/17/21 22:21 Sodium Chloride 0.9% 10 Ml Syringe FLUSH 10 ml ASDIRECTED PRN Administration Keep Vein Open Sodium Chloride 2.5 ml 03/17/21 21:43 03/17/21 22:21 Sodium Chloride 0.9% 2.5 Ml Syringe FLUSH 2.5 ml ASDIRECTED PRN Administration Keep Vein Open Discontinued Medications Generic Name Dose Route Start Last Admin Trade Name Ofelia PRN Reason Stop Dose Admin Aspirin 325 mg 03/17/21 23:41 03/18/21 00:04 Aspirin 325 Mg Tab.Ec PO 03/17/21 23:42 Not Given ONETIME ONE Aspirin 324 mg 03/17/21 23:58 Aspirin 81 Mg Tab.Chew PO 03/17/21 23:59 ONETIME ONE Iopamidol 100 ml 03/17/21 23:57 03/17/21 23:57 Iopamidol 755 Mg/Ml 500 Ml Multipack Bottle IVPUSH 03/17/21 23:58 100 ml ONETIME STA Administration - Re-Assessments/Exams Free Text/Narrative Re-Assessment/Exam: 03/17/21 23:41 Patient will require transfer to outside facility for the need of higher level of care not available at this facility, and the need for network consultant services unavailable at this facility. Any emergency conditions have been stabilized to the ability of the ED prior to the transfer. Patient was given 324 mg p.o. aspirin. Case was discussed and accepted by Dr. Santoyo at [facility] 03/18/21 00:34 Heparin bolus and drip initiated for ACS protocol. Departure - Departure Time of Disposition: 23:53 Disposition: DC/Tfer to Acute Hospital 02 Clinical Impression: NSTEMI (non-ST elevated myocardial infarction), Leukocytosis - Discharge Information *PRESCRIPTION DRUG MONITORING PROGRAM REVIEWED*: Not Applicable *COPY OF PRESCRIPTION DRUG MONITORING REPORT IN PATIENT JACQUELINE: Not Applicable Instructions: Heart Attack Referrals: PCP,None [Primary Care Provider] - Forms: ED Department Discharge Critical Care Note - Critical Care Note Total Time (mins): 40 Comments: CRITCAL CARE: The high probability of sudden, clinically significant deterioration in the patient's condition required the highest level of my preparedness to intervene urgently. The services I provided to this patient were to treat and/or prevent clinically significant deterioration. Services included the following: chart data review, reviewing nursing notes and/or old charts, documentation time, network consultant collaboration regarding findings and treatment options, medication orders and management, direct patient care, vital sign assessments and ordering, interpreting and reviewing diagnostic studies/lab tests. Aggregate critical care time includes only time during which I was engaged in work directly related to the patient's care, as described above, whether at the bedside or elsewhere in the Emergency Department. It did not include time spent performing other reported procedures or the services of residents, students, nurses or physician assistants. Frequent interventions and/or frequent repeat evaluations were required as well as counseling and coordination of care regarding prognosis, treatments, and discussions with patient, staff and consultants. Critical Care (excluding other procedures): 40 minutes Sepsis Event Note (ED) - Evaluation Sepsis Screening Result: No Definite Risk - Focused Exam Vital Signs: Vital Signs Temp Pulse Resp BP Pulse Ox 03/18/21 00:21 112 H 20 179/109 H 96 03/17/21 21:29 98.6 F 119 H 141/90 H 94 L - My Orders Last 24 Hours: My Active Orders 03/17/21 21:24 EKG Documentation Completion [RC] STAT 03/18/21 00:32 CORONAVIRUS COVID-19 NGUYEN [MOLEC] Stat 03/18/21 00:33 PTT,PARTIAL THROMBOPLSTIN TIME [COAG] Stat Heparin Sodium 4,000 units IVPUSH .BOLUS ONE 03/18/21 00:34 diphenhydrAMINE [Benadryl] 50 mg IVPUSH ONETIME ONE 03/18/21 00:45 Heparin Sodium/0.45% NaCl [Heparin 25,000 Units in 1/2 NS 500 ML] 500 ml IV TITRATE - Assessment/Plan Last 24 Hours: My Active Orders 03/17/21 21:24 EKG Documentation Completion [RC] STAT 03/18/21 00:32 CORONAVIRUS COVID-19 NGUYEN [MOLEC] Stat 03/18/21 00:33 PTT,PARTIAL THROMBOPLSTIN TIME [COAG] Stat Heparin Sodium 4,000 units IVPUSH .BOLUS ONE 03/18/21 00:34 diphenhydrAMINE [Benadryl] 50 mg IVPUSH ONETIME ONE 03/18/21 00:45 Heparin Sodium/0.45% NaCl [Heparin 25,000 Units in 1/2 NS 500 ML] 500 ml IV TITRATE
[2021-03-17 23:27] LABS: BLOOD UREA NITROGEN,BUN 14 mg/dL (7.0-18.0); CARBON DIOXIDE,CO2 26.4 mmol/L (21.0-32.0); CHLORIDE,CL 101 mmol/L (98-107); GLUCOSE RANDOM 268 mg/dL (74-106); POTASSIUM,K 4.6 mmol/L (3.5-5.1); SODIUM,NA 136 mmol/L (136-145)
[2021-03-17] MEDS ORDERED: Aspirin 325 MG Tab.EC PO ONE (23:41)
--- NOTE | 2021-03-17 23:56 | CR ---
INDICATION: Shortness of breath. COMPARISON: None available. FINDINGS: PA and lateral views of the chest were obtained. There is mild vascular engorgement and mild interstitial pulmonary edema, suggesting mild congestive failure. This could also be an atypical pneumonia. There is no sign of any pleural effusion. The heart is normal in size. Incidental note is made of a small right pericardial fat pad. The mediastinum is otherwise normal in appearance. The osseous structures are normal in appearance for the patient`s age. IMPRESSION: Findings suggesting mild congestive failure versus an atypical pneumonia. Dictated by Elijah Hernandez MD @ 03/17/2021 11:55:[address] Elijah Hernandez @ Mar 17 2021 11:55PM
[2021-03-17] MEDS ORDERED: Iopamidol 755 MG/ML 500 ML Multipack Bottle IVPUSH STA (23:57)
[2021-03-17] MEDS ORDERED: Aspirin 81 MG Tab.Chew PO ONE (23:58)
--- NOTE | 2021-03-18 00:22 | CT ---
INDICATION: Chest pain, shortness of breath and elevated D-dimer TECHNIQUE: CT chest PE was acquired with 100 cc Isovue 370 intravenous contrast. COMPARISON: None. FINDINGS: Heart and vasculature: Contrast opacification of the pulmonary arterial tree is adequate. No sign of pulmonary embolism. Heart size is normal. Thoracic aorta and pulmonary artery are normal in caliber. Lungs and pleural: No pneumothorax. Interlobular septal thickening with areas of geographic ground-glass opacity. Lymph nodes/mediastinum: Subcarinal lymph nodes measures 16 millimeters in short axis. Chest wall: No masses. Upper abdomen: Cyst at the level of the caudate lobe of the liver. Bones: Unremarkable for age. IMPRESSION: 1. No evidence of pulmonary embolus. 2. Interlobular septal thickening with ground-glass opacities suggesting pulmonary edema. 3. Mediastinal adenopathy. Follow-up chest CT suggested in 3 months to assess for regression. Please note that all CT scans at this facility use dose modulation, iterative reconstruction, and/or weight-based dosing when appropriate to reduce radiation dose to as low as reasonably achievable. Dictated by West Chen MD @ 03/18/2021 12:21:[address] West Chen @ Mar 18 2021 12:21AM
[2021-03-18] MEDS ORDERED: Heparin Sodium 5,000 Units/ML Vial IVPUSH ONE (00:33)
[2021-03-18] MEDS ORDERED: diphenhydrAMINE 50 MG/ML SDV IVPUSH ONE (00:34)
[2021-03-18] MEDS ORDERED: LORazepam 2 MG/ML SDV IVPUSH ONE (00:37)
[2021-03-18] MEDS ORDERED: Heparin Sodium/0.45% NaCl 500 ML IV SCH (00:45)
[2021-03-18 01:04] VITALS: BP 174/110; PULSE 109
== END 2021-03-18 01:55 ==
LOC: MW.ED 21:09
DX: I21.4 Non-ST elevation (NSTEMI) myocardial infarction (principal); D72.829 Elevated white blood cell count, unspecified; E78.5 Hyperlipidemia, unspecified; E11.21 Type 2 diabetes mellitus with diabetic nephropathy; E11.40 Type 2 diabetes mellitus with diabetic neuropathy, unspecified; Z79.4 Long term (current) use of insulin; Z79.899 Other long term (current) drug therapy; Z88.6 Allergy status to analgesic agent; Z88.8 Allergy status to other drugs, medicaments and biological substances
CPT/HCPCS: 36415; 71046; 71275; 80053; 81001; 81025; 84484; 85025; 85379; 85730; 93005; 96365; 96375; 99285; A9270; J1200; J1644; J2060; Q9967

== ENCOUNTER 2021-06-16 21:42 | Emergency (ER) | payer BC ==
[2021-06-17] MEDS ORDERED: Ondansetron 4 MG Tab.DIS PO ONE (00:49)
--- NOTE | 2021-06-17 00:52 | EDM.PDOC ---
<RodneyYead Biju - Last Filed: 06/17/21 05:34> ED HPI GENERAL MEDICAL PROBLEM - General Chief Complaint: General Stated Complaint: NOT FEELING WELL, PURPLE SPOT ON TONGUE Time Seen by Provider: 06/17/21 00:34 Source of Information: Reports: Patient History Limitations: Reports: No Limitations - History of Present Illness INITIAL COMMENTS - FREE TEXT/NARRATIVE: Patient is a 40-year-old female history of CAD with 5 stents presents today for not feeling well. Says she is having nausea vomiting with some lower back pain. Patient denies any chest pain shortness of breath cough. She denies any new to recent travels eating in restaurants no when she was was having the same symptoms. She also denies any abdominal pain as well. Patient still tolerating p.o. when she is not vomiting. Bilateral Upper Back Pain Score (Numeric/FACES): 5 - Related Data Allergies Allergy/AdvReac Type Severity Reaction Status Date / Time Antihistamines - Alkylamine Allergy Hives Verified 06/16/21 22:35 aspirin Allergy Hives Verified 06/16/21 22:35 Pain medication Allergy Cannot Uncoded 06/16/21 22:35 Remember Home Meds: Home Meds Insulin Aspart [NovoLOG] See Protocol SQ WITHMEALSANDBED #3 pen MDD 50 units 05/28/19 [Rx] Insulin Glarg,Human.Rec.Analog [Lantus Solostar] 15 unit SUBCUT DAILY #2 pen 05/28/19 [Rx] Levothyroxine 75 mcg PO ACBREAKFAST 11/30/20 [History] Sertraline HCl [Zoloft] 100 mg PO DAILY 11/30/20 [History] hydroCHLOROthiazide [Hydrochlorothiazide] 12.5 mg PO DAILY 11/30/20 [History] Chlorthalidone 25 mg PO DAILY 06/16/21 [History] Losartan Potassium 100 mg PO DAILY 06/16/21 [History] Sertraline [Zoloft] 100 mg PO DAILY 06/16/21 [History] Spironolactone [Aldactone] 25 mg PO ONETIME 06/16/21 [History] Ticagrelor [Brilinta] 90 mg PO DAILY 06/16/21 [History] amLODIPine [Norvasc] 5 mg PO DAILY 06/16/21 [History] Past Medical History - Past Health History Medical/Surgical History: Denies Medical/Surgical History HEENT History: Reports: None Cardiovascular History: Reports: High Cholesterol, Stents Respiratory History: Reports: None Gastrointestinal History: Reports: None Genitourinary History: Reports: Diabetic Nephropathy, UTI, Recurrent Other Genitourinary History: Yeast infections [employer] History: Reports: Other [employer] History: Genital warts Musculoskeletal History: Reports: None Neurological History: Reports: Neuropathy, Diabetic Psychiatric History: Reports: Anxiety, Depression, PTSD Endocrine/Metabolic History: Reports: Diabetes, Type II Other Endocrine/Metabolic History: should be on insulin but "I just dont take it" Hematologic History: Reports: None Immunologic History: Reports: None Oncologic (Cancer) History: Reports: None Dermatologic History: Reports: None - Infectious Disease History Infectious Disease History: Reports: Chicken Pox - Past Surgical History Head Surgeries/Procedures: Reports: None HEENT Surgical History: Reports: Tonsillectomy Other HEENT Surgeries/Procedures: 2 throat surgeries Cardiovascular Surgical History: Reports: None Respiratory Surgical History: Reports: None GI Surgical History: Reports: None Female Surgical History: Reports: Section Endocrine Surgical History: Reports: None Neurological Surgical History: Reports: None Musculoskeletal Surgical History: Reports: None Dermatological Surgical History: Reports: None Social & Family History - Family History Family Medical History: No Pertinent Family History Endocrine/Metabolic: Reports: Diabetes, type II Oncologic: Reports: Breast, Uterine - Tobacco Use Tobacco Use Status *Q: Former Tobacco User Used Tobacco, but Quit: Yes Month/Year Tobacco Last Used: 2 - Caffeine Use Caffeine Use: Reports: Energy Drinks - Recreational Drug Use Recreational Drug Use: No ED ROS GENERAL - Review of Systems Review Of Systems: See Below Constitutional: Reports: No Symptoms HEENT: Reports: No Symptoms Respiratory: Reports: No Symptoms Cardiovascular: Reports: No Symptoms Endocrine: Reports: No Symptoms GI/Abdominal: Reports: Nausea, Vomiting : Reports: No Symptoms Musculoskeletal: Reports: No Symptoms Skin: Reports: No Symptoms Neurological: Reports: No Symptoms Psychiatric: Reports: No Symptoms Hematologic/Lymphatic: Reports: No Symptoms Immunologic: Reports: No Symptoms ED EXAM, GENERAL - Physical Exam Exam: See Below Exam Limited By: No Limitations General Appearance: Alert, WD/WN, No Apparent Distress Respiratory/Chest: No Respiratory Distress, Lungs Clear, Normal Breath Sounds Cardiovascular: Normal Peripheral Pulses, Regular Rate, Rhythm GI/Abdominal: Normal Bowel Sounds, Soft, Non-Tender Back Exam: No: CVA Tenderness (L), CVA Tenderness (R) Extremities: Normal Inspection Neurological: Alert, Oriented, Normal Cognition, Normal Gait #1 Interpretation EKG Date: 06/17/21 Time: 05:09 Rhythm: Other (sinus tachy) Rate (Beats/Min): 117 ST-T: Normal Course - Re-Assessments/Exams Free Text/Narrative Re-Assessment/Exam: 06/17/21 04:05 Patient is feeling slightly better however she does have ALMA-creatinine 1.5. Patient also has a WBC count 28k patient likely has some sepsis due to her UTI patient was given antibiotics IV fluid. Again we have no beds available here even for observation to admit this patient. Again we have called multiple hospitals as well as the transfer center call and there are no beds available in the [facility] or nearby state patient will be in remain ER until we can find placement for patient. Departure - Departure Time of Disposition: 05:34 Disposition: DC/Tfer to Acute Hospital 02 Condition: Good Clinical Impression: UTI (urinary tract infection) - Discharge Information Referrals: PCP,None [Primary Care Provider] - Forms: ED Department Discharge Sepsis Event Note (ED) - Evaluation Sepsis Screening Result: No Definite Risk - Assessment/Plan Plan: Patient is a 40-year-old female presents today for nausea vomiting and low back pain. Will obtain UA labs and reassess patient. <Chepe Randhawa - Last Filed: 06/17/21 12:37> ED HPI GENERAL MEDICAL PROBLEM - History of Present Illness INITIAL COMMENTS - FREE TEXT/NARRATIVE: Patient was signed out to me by Dr. Stevens at 7am. I promptly performed a detailed physical examination and my examination was done after ED treatments were initiated by the signout provider. Patient has been under the care of previous provider up until this point. On reevaluation the patient's blood pressure was decreased at 88/46, the patient was febrile at 38.4 and pulse oximetry with good waveform was 93 to 94% on room air. At this time the patient had received Tylenol prior to my arrival therefore we will hold off on Tylenol administration at this time. Given the hypotension I did provide the patient with 1 L of lactated Ringer's bolus. The patient has already received 3 L at this time. We will start the patient on maintenance fluids. Cardiac monitoring at this time did reveal sinus rhythm. The patient does have obese upper arms and I do believe that the blood pressure measurement is inaccurate as the patient is mentating appropriately and does not appear toxic. At this time CT abdomen pelvis was pending. VB. The radiological images were viewed by myself along with reading the report from the radiologist. CT abdomen pelvis without contrast does not reveal any acute intra-abdominal process. There is a 6 cm cystic lesion along the medial margin of the liver. Given the duration of the patient being in the hospital I did contact our hospitalist Dr. Roa to discuss DVT prophylaxis. Therefore at this time given the patient's acute kidney injury we did provide the patient with heparin subcu for DVT prophylaxis. After imaging I did discuss the results with the patient. At this time we do not have any available beds here in [place]. The patient has been here for significant amount of time and multiple areas last night were contacted and there is no available beds in the surrounding areas in the [place]. We will attempt to contact for a bed availability this morning. I contacted [facility] [address] in [place] and they do not have any available beds. Given the pandemic there is a transfer center that deals with all beds in [place] so I contacted the transfer center and they will call back if there is any available beds. At this time there is no available beds in [place]. After a statewide meeting and some significant delay there is an available bed at [facility] in [facility]. I spoke with Dr. Joyce who accepted the patient for transfer. After earlier interventions the patient's heart rate was now 97, blood pressure 117/66, saturating 96% on room air and was afebrile. The patient was tolerating p.o. I did discuss transfer with the patient and she was amenable to this plan. DISPOSITION: The patient was transferred to [facility] in [facility] in stable condition CONDITION: Serious PROCEDURES: Cardiac monitoring interpretation, pulse oximetry interpretation FINAL IMPRESSION(S)/DIAGNOSES: 1. Acute sepsis secondary to urinary tract infection 2. Acute kidney injury Chepe Randhawa M.D. Course - Vital Signs Last Recorded V/S: Last Vital Signs Temp 36.0 C L 06/17/21 12:09 Pulse 97 06/17/21 11:51 Resp 18 06/17/21 11:51 BP 117/66 06/17/21 11:51 Pulse Ox 96 06/17/21 11:51 - Orders/Labs/Meds Orders: Active Orders 24 hr Category Date Time Status CULTURE BLOOD [] Stat Lab 06/17/21 02:16 Received CULTURE BLOOD [] Stat Lab 06/17/21 02:20 Results Dextrose 50% in Water Med 06/17/21 06:45 Active 50 ml IVPUSH ASDIRECTED PRN Glucagon,Human Recombinant [GlucaGen] Med 06/17/21 06:45 Active 1 mg IM ASDIRECTED PRN Medication Orders Dextrose/Water (50% Dextrose In Water 50 Ml Syringe) 50 ml IVPUSH ASDIRECTED PRN PRN Reason: Hypoglycemia Glucagon (Glucagon,Human Recombinant 1 Mg Vial) 1 mg IM ASDIRECTED PRN PRN Reason: Hypoglycemia Labs: Laboratory Tests 06/17/21 06/17/21 06/17/21 Range/Units 00:00 00:00 01:12 WBC 28.72 H (4.0-11.0) K/uL RBC 4.65 (4.30-5.90) M/uL Hgb 11.1 L (12.0-16.0) g/dL Hct 35.0 L (36.0-46.0) % MCV 75.3 L (80.0-98.0) fL MCH 23.9 L (27.0-32.0) pg MCHC 31.7 (31.0-37.0) g/dL RDW Std Deviation 50.4 (28.0-62.0) fl RDW Coeff of Mile 19 H (11.0-15.0) % Plt Count 463 H (150-400) K/uL MPV 10.10 (7.40-12.00) fL Add Manual Diff YES Neutrophils % (Manual) 76 (48.0-80.0) % Band Neutrophils % 1 % Lymphocytes % (Manual) 15 L (16.0-40.0) % Monocytes % (Manual) 8 (0.0-15.0) % Metamyelocytes % % Absolute Seg Neuts 21.8 H (1.4-5.7) Band Neutrophils # 0.3 Lymphocytes # (Manual) 4.3 H (0.6-2.4) Monocytes # (Manual) 2.3 H (0.0-0.8) Absolute Metamyelocyte VBG pH (7.31-7.41) VBG pCO2 (41-51) mmHG VBG pO2 mmHG VBG HCO3 (23-28) mEq/L VBG Total CO2 (24-29) mmol/L VBG Base Excess (-2.0-3.0) Sodium (136-145) mmol/L Potassium (3.5-5.1) mmol/L Chloride (98-107) mmol/L Carbon Dioxide (21.0-32.0) mmol/L BUN (7.0-18.0) mg/dL Creatinine (0.6-1.0) mg/dL Est Cr Clr Drug Dosing Estimated GFR (MDRD) ml/min Glucose (74-106) mg/dL POC Glucose (70-99) mg/dL Lactic Acid (0.4-2.0) mmol/L Calcium (8.5-10.1) mg/dL Total Bilirubin (0.2-1.0) mg/dL AST (15-37) IU/L ALT (14-63) IU/L Alkaline Phosphatase (46-116) U/L Creatine Kinase (26-308) U/L Total Protein (6.4-8.2) g/dL Albumin (3.4-5.0) g/dL Globulin (2.6-4.0) g/dL Albumin/Globulin Ratio (0.9-1.6) Lipase (73-393) U/L Urine Color YELLOW Urine Appearance CLOUDY Urine pH 5.5 (5.0-8.0) Ur Specific [place] 1.025 (1.001-1.035) Urine Protein 100 H (NEGATIVE) mg/dL Urine Glucose (UA) 500 H (NEGATIVE) mg/dL Urine Ketones TRACE H (NEGATIVE) mg/dL Urine Occult Blood MODERATE H (NEGATIVE) Urine Nitrite NEGATIVE (NEGATIVE) Urine Bilirubin NEGATIVE (NEGATIVE) Urine Urobilinogen 0.2 (<2.0) EU/dL Ur Leukocyte Esterase SMALL H (NEGATIVE) Urine RBC 3-6 (0-2/HPF) Urine WBC 50-60 (0-5/HPF) Ur Epithelial Cells FEW (NONE-FEW) Urine Bacteria 2+ H (NEGATIVE) Urine HCG, Qual NEGATIVE (NEGATIVE) Salicylates (0-20) mg/dL SARS-CoV-2 RNA (NGUYEN) (NEGATIVE) 06/17/21 06/17/21 06/17/21 Range/Units 01:12 02:16 06:04 WBC 4.76 (4.0-11.0) K/uL RBC 4.43 (4.30-5.90) M/uL Hgb 10.6 L (12.0-16.0) g/dL Hct 33.7 L (36.0-46.0) % MCV 76.1 L (80.0-98.0) fL MCH 23.9 L (27.0-32.0) pg MCHC 31.5 (31.0-37.0) g/dL RDW Std Deviation 51.2 (28.0-62.0) fl RDW Coeff of Mile 19 H (11.0-15.0) % Plt Count 393 (150-400) K/uL MPV 9.50 (7.40-12.00) fL Add Manual Diff YES Neutrophils % (Manual) 69 (48.0-80.0) % Band Neutrophils % 4 % Lymphocytes % (Manual) 25 (16.0-40.0) % Monocytes % (Manual) 1 (0.0-15.0) % Metamyelocytes % 1 % Absolute Seg Neuts 3.3 (1.4-5.7) Band Neutrophils # 0.2 Lymphocytes # (Manual) 1.2 (0.6-2.4) Monocytes # (Manual) 0.0 (0.0-0.8) Absolute Metamyelocyte 0 VBG pH (7.31-7.41) VBG pCO2 (41-51) mmHG VBG pO2 mmHG VBG HCO3 (23-28) mEq/L VBG Total CO2 (24-29) mmol/L VBG Base Excess (-2.0-3.0) Sodium 134 L (136-145) mmol/L Potassium 4.5 (3.5-5.1) mmol/L Chloride 98 (98-107) mmol/L Carbon Dioxide 21.8 (21.0-32.0) mmol/L BUN 27 H (7.0-18.0) mg/dL Creatinine 1.5 H (0.6-1.0) mg/dL Est Cr Clr Drug Dosing TNP Estimated GFR (MDRD) 38.1 ml/min Glucose 291 H (74-106) mg/dL POC Glucose (70-99) mg/dL Lactic Acid 1.7 (0.4-2.0) mmol/L Calcium 8.6 (8.5-10.1) mg/dL Total Bilirubin 0.3 (0.2-1.0) mg/dL AST 13 L (15-37) IU/L ALT 13 L (14-63) IU/L Alkaline Phosphatase 133 H (46-116) U/L Creatine Kinase 58 (26-308) U/L Total Protein 7.2 (6.4-8.2) g/dL Albumin 2.8 L (3.4-5.0) g/dL Globulin 4.4 H (2.6-4.0) g/dL Albumin/Globulin Ratio 0.6 L (0.9-1.6) Lipase 72 L (73-393) U/L Urine Color Urine Appearance Urine pH (5.0-8.0) Ur Specific [place] (1.001-1.035) Urine Protein (NEGATIVE) mg/dL Urine Glucose (UA) (NEGATIVE) mg/dL Urine Ketones (NEGATIVE) mg/dL Urine Occult Blood (NEGATIVE) Urine Nitrite (NEGATIVE) Urine Bilirubin (NEGATIVE) Urine Urobilinogen (<2.0) EU/dL Ur Leukocyte Esterase (NEGATIVE) Urine RBC (0-2/HPF) Urine WBC (0-5/HPF) Ur Epithelial Cells (NONE-FEW) Urine Bacteria (NEGATIVE) Urine HCG, Qual (NEGATIVE) Salicylates (0-20) mg/dL SARS-CoV-2 RNA (NGUYEN) (NEGATIVE) 06/17/21 06/17/21 06/17/21 Range/Units 06:04 06:04 06:05 WBC (4.0-11.0) K/uL RBC (4.30-5.90) M/uL Hgb (12.0-16.0) g/dL Hct (36.0-46.0) % MCV (80.0-98.0) fL MCH (27.0-32.0) pg MCHC (31.0-37.0) g/dL RDW Std Deviation (28.0-62.0) fl RDW Coeff of Mile (11.0-15.0) % Plt Count (150-400) K/uL MPV (7.40-12.00) fL Add Manual Diff Neutrophils % (Manual) (48.0-80.0) % Band Neutrophils % % Lymphocytes % (Manual) (16.0-40.0) % Monocytes % (Manual) (0.0-15.0) % Metamyelocytes % % Absolute Seg Neuts (1.4-5.7) Band Neutrophils # Lymphocytes # (Manual) (0.6-2.4) Monocytes # (Manual) (0.0-0.8) Absolute Metamyelocyte VBG pH (7.31-7.41) VBG pCO2 (41-51) mmHG VBG pO2 mmHG VBG HCO3 (23-28) mEq/L VBG Total CO2 (24-29) mmol/L VBG Base Excess (-2.0-3.0) Sodium 136 (136-145) mmol/L Potassium 4.1 (3.5-5.1) mmol/L Chloride 99 (98-107) mmol/L Carbon Dioxide 20.7 L (21.0-32.0) mmol/L BUN 26 H (7.0-18.0) mg/dL Creatinine 1.4 H (0.6-1.0) mg/dL Est Cr Clr Drug Dosing TNP Estimated GFR (MDRD) 41.2 ml/min Glucose 277 H (74-106) mg/dL POC Glucose (70-99) mg/dL Lactic Acid (0.4-2.0) mmol/L Calcium 7.6 L (8.5-10.1) mg/dL Total Bilirubin (0.2-1.0) mg/dL AST (15-37) IU/L ALT (14-63) IU/L Alkaline Phosphatase (46-116) U/L Creatine Kinase (26-308) U/L Total Protein (6.4-8.2) g/dL Albumin (3.4-5.0) g/dL Globulin (2.6-4.0) g/dL Albumin/Globulin Ratio (0.9-1.6) Lipase (73-393) U/L Urine Color Urine Appearance Urine pH (5.0-8.0) Ur Specific [place] (1.001-1.035) Urine Protein (NEGATIVE) mg/dL Urine Glucose (UA) (NEGATIVE) mg/dL Urine Ketones (NEGATIVE) mg/dL Urine Occult Blood (NEGATIVE) Urine Nitrite (NEGATIVE) Urine Bilirubin (NEGATIVE) Urine Urobilinogen (<2.0) EU/dL Ur Leukocyte Esterase (NEGATIVE) Urine RBC (0-2/HPF) Urine WBC (0-5/HPF) Ur Epithelial Cells (NONE-FEW) Urine Bacteria (NEGATIVE) Urine HCG, Qual (NEGATIVE) Salicylates 2.3 (0-20) mg/dL SARS-CoV-2 RNA (NGUYEN) NEGATIVE (NEGATIVE) 06/17/21 06/17/21 Range/Units 07:14 07:19 WBC (4.0-11.0) K/uL RBC (4.30-5.90) M/uL Hgb (12.0-16.0) g/dL Hct (36.0-46.0) % MCV (80.0-98.0) fL MCH (27.0-32.0) pg MCHC (31.0-37.0) g/dL RDW Std Deviation (28.0-62.0) fl RDW Coeff of Mile (11.0-15.0) % Plt Count (150-400) K/uL MPV (7.40-12.00) fL Add Manual Diff Neutrophils % (Manual) (48.0-80.0) % Band Neutrophils % % Lymphocytes % (Manual) (16.0-40.0) % Monocytes % (Manual) (0.0-15.0) % Metamyelocytes % % Absolute Seg Neuts (1.4-5.7) Band Neutrophils # Lymphocytes # (Manual) (0.6-2.4) Monocytes # (Manual) (0.0-0.8) Absolute Metamyelocyte VBG pH 7.37 (7.31-7.41) VBG pCO2 36 L (41-51) mmHG VBG pO2 32 mmHG VBG HCO3 21 L (23-28) mEq/L VBG Total CO2 19 L (24-29) mmol/L VBG Base Excess -4.2 L (-2.0-3.0) Sodium (136-145) mmol/L Potassium (3.5-5.1) mmol/L Chloride (98-107) mmol/L Carbon Dioxide (21.0-32.0) mmol/L BUN (7.0-18.0) mg/dL Creatinine (0.6-1.0) mg/dL Est Cr Clr Drug Dosing Estimated GFR (MDRD) ml/min Glucose (74-106) mg/dL POC Glucose 221 H (70-99) mg/dL Lactic Acid (0.4-2.0) mmol/L Calcium (8.5-10.1) mg/dL Total Bilirubin (0.2-1.0) mg/dL AST (15-37) IU/L ALT (14-63) IU/L Alkaline Phosphatase (46-116) U/L Creatine Kinase (26-308) U/L Total Protein (6.4-8.2) g/dL Albumin (3.4-5.0) g/dL Globulin (2.6-4.0) g/dL Albumin/Globulin Ratio (0.9-1.6) Lipase (73-393) U/L Urine Color Urine Appearance Urine pH (5.0-8.0) Ur Specific [place] (1.001-1.035) Urine Protein (NEGATIVE) mg/dL Urine Glucose (UA) (NEGATIVE) mg/dL Urine Ketones (NEGATIVE) mg/dL Urine Occult Blood (NEGATIVE) Urine Nitrite (NEGATIVE) Urine Bilirubin (NEGATIVE) Urine Urobilinogen (<2.0) EU/dL Ur Leukocyte Esterase (NEGATIVE) Urine RBC (0-2/HPF) Urine WBC (0-5/HPF) Ur Epithelial Cells (NONE-FEW) Urine Bacteria (NEGATIVE) Urine HCG, Qual (NEGATIVE) Salicylates (0-20) mg/dL SARS-CoV-2 RNA (NGUYEN) (NEGATIVE) Meds: Medications Generic Name Dose Route Start Last Admin Trade Name Ofelia PRN Reason Stop Dose Admin Dextrose/Water 50 ml 06/17/21 06:45 50% Dextrose In Water 50 Ml Syringe IVPUSH ASDIRECTED PRN Hypoglycemia Glucagon 1 mg 06/17/21 06:45 Glucagon,Human Recombinant 1 Mg Vial IM ASDIRECTED PRN Hypoglycemia Discontinued Medications Generic Name Dose Route Start Last Admin Trade Name Ofelia PRN Reason Stop Dose Admin Acetaminophen 650 mg 06/17/21 06:47 06/17/21 06:59 Acetaminophen 325 Mg Tab PO 06/17/21 06:48 650 mg NOW ONE Administration Ceftriaxone Sodium 1 gm 06/17/21 01:53 06/17/21 02:19 Ceftriaxone 1 Gm Vial IVPUSH 06/17/21 01:54 Not Given ONETIME ONE Enoxaparin Sodium 40 mg 06/17/21 10:15 Enoxaparin 40 Mg/0.4 Ml Syringe SUBCUT 06/17/21 10:16 ONETIME ONE Heparin Sodium (Porcine) 5,000 units 06/17/21 10:16 06/17/21 10:30 Heparin Sodium 5,000 Units/Ml Vial SUBCUT 06/17/21 10:17 5,000 units TID STA Administration Sodium Chloride 1,000 mls @ 1,000 mls/hr 06/17/21 01:53 06/17/21 02:25 Normal Saline IV 06/17/21 02:52 1,000 mls/hr .Bolus ONE Administration Ceftriaxone Sodium/Dextrose 1 50 mls @ 100 mls/hr 06/17/21 02:19 06/17/21 02:25 gm/ Premix IV 06/17/21 02:48 100 mls/hr ONETIME ONE Administration Sodium Chloride 1,000 mls @ 1,000 mls/hr 06/17/21 02:49 06/17/21 03:52 Normal Saline IV 06/17/21 03:48 1,000 mls/hr .Bolus ONE Administration Lactated Ringer's 1,000 mls @ 999 mls/hr 06/17/21 06:14 06/17/21 06:19 Ringers, Lactated IV 06/17/21 07:14 999 mls/hr NOW STA Administration Vancomycin HCl 2 gm/ Premix 400 mls @ 200 mls/hr 06/17/21 08:00 06/17/21 08:03 IV 06/17/21 09:59 200 mls/hr ONETIME ONE Administration Lactated Ringer's 1,000 mls @ 999 mls/hr 06/17/21 07:57 06/17/21 07:59 Ringers, Lactated IV 06/17/21 08:57 999 mls/hr NOW STA Administration Insulin Human Regular 5 unit 06/17/21 06:45 06/17/21 07:00 Insulin Regular, Human 100 Units/Ml 10 Ml Vial SUBCUT 06/17/21 06:46 5 units ONETIME ONE Administration Protocol Ketorolac Tromethamine 30 mg 06/17/21 03:23 06/17/21 03:52 Ketorolac 30 Mg/Ml Sdv IVPUSH 06/17/21 03:24 30 mg ONETIME ONE Administration Morphine Sulfate 2 mg 06/17/21 08:07 06/17/21 08:16 Morphine 4 Mg/Ml Syringe IVPUSH 06/17/21 08:08 2 mg ONETIME ONE Administration Ondansetron HCl 4 mg 06/17/21 00:49 06/17/21 00:54 Ondansetron 4 Mg Tab.Dis PO 06/17/21 00:50 4 mg ONETIME ONE Administration Ondansetron HCl 4 mg 06/17/21 03:23 06/17/21 03:52 Ondansetron 4 Mg/2 Ml Sdv IVPUSH 06/17/21 03:24 4 mg ONETIME ONE Administration Departure - Departure Time of Disposition: 12:37 Condition: Serious Sepsis Event Note (ED) - Focused Exam Vital Signs: Vital Signs Temp Temp Pulse Resp BP BP Pulse Ox 06/17/21 12:09 36.0 C L 06/17/21 11:51 97 18 117/66 96 06/17/21 09:56 37.8 C 102 H 17 107/66 96 06/17/21 09:25 101 H 17 97/51 L 95 06/17/21 07:40 38.4 C H 108 H 16 88/46 L 92 L 06/17/21 06:59 38.8 C H 06/17/21 06:45 38.8 C H 110 H 20 97/52 L 95 06/17/21 06:00 122 H 20 109/60 94 L 06/17/21 05:00 36.4 C 117 H 20 134/87 97 06/17/21 03:45 37.4 C 98 18 107/60 98 06/17/21 01:00 95 20 112/65 97
[2021-06-17 01:52] LABS: BLOOD UREA NITROGEN,BUN 27 mg/dL (7.0-18.0); CARBON DIOXIDE,CO2 21.8 mmol/L (21.0-32.0); CHLORIDE,CL 98 mmol/L (98-107); GLUCOSE RANDOM 291 mg/dL (74-106); LIPASE 72 U/L (73-393); POTASSIUM,K 4.5 mmol/L (3.5-5.1); SODIUM,NA 134 mmol/L (136-145)
[2021-06-17] MEDS ORDERED: Sodium Chloride 0.9% 1,000 ML IV ONE ×2 (01:53→02:49)
[2021-06-17] MEDS ORDERED: cefTRIAXone 1 GM Vial IVPUSH ONE (01:53)
[2021-06-17] MEDS ORDERED: cefTRIAXone 1 GM in Premix Bag 1 BAG IV ONE (02:19)
[2021-06-17] MEDS ORDERED: Ketorolac 30 MG/ML SDV IVPUSH ONE (03:23)
[2021-06-17] MEDS ORDERED: Ondansetron 4 MG/2 ML SDV IVPUSH ONE (03:23)
--- NOTE | 2021-06-17 05:27 | CR ---
INDICATION: UTI sepsis. TECHNIQUE: Chest radiograph 1 view COMPARISON: 03/17/2021 FINDINGS: Cardiovascular and mediastinum: Heart size enlarged. Mediastinal contour is within normal limits. Lungs and pleural spaces: Both lungs are unremarkable in appearance. No sign of pleural effusion seen. No pneumothorax is identified. Bones and soft tissues: No significant findings. Study somewhat limited due to patient body habitus. IMPRESSION: 1. Enlarged cardiac silhouette. No focal infiltrate with clinical history of sepsis. Dictated by Travis Avila MD @ 06/17/2021 5:26:52 AM (Electronically Signed)
[2021-06-17] MEDS ORDERED: Lactated Ringers 1,000 ML IV STA ×2 (06:14→07:57)
[2021-06-17 06:32] LABS: BLOOD UREA NITROGEN,BUN 26 mg/dL (7.0-18.0); CARBON DIOXIDE,CO2 20.7 mmol/L (21.0-32.0); CHLORIDE,CL 99 mmol/L (98-107); GLUCOSE RANDOM 277 mg/dL (74-106); POTASSIUM,K 4.1 mmol/L (3.5-5.1); SODIUM,NA 136 mmol/L (136-145)
[2021-06-17] MEDS ORDERED: Insulin Regular, Human 100 Units/ML 10 ML Vial SUBCUT ONE (06:45)
[2021-06-17] MEDS ORDERED: Glucagon,Human Recombinant 1 MG Vial IM PRN (06:45)
[2021-06-17] MEDS ORDERED: 50% Dextrose in Water 50 ML Syringe IVPUSH PRN (06:45)
[2021-06-17] MEDS ORDERED: Acetaminophen 325 MG Tab PO ONE (06:47)
[2021-06-17] MEDS ORDERED: VANCOmycin 2 GM/400 ML 2 GM in Premix Bag 1 BAG IV ONE (08:00)
[2021-06-17] MEDS ORDERED: Morphine 4 MG/ML Syringe IVPUSH ONE (08:07)
--- NOTE | 2021-06-17 08:37 | CT ---
INDICATION: Abdominal pain with nausea and vomiting. Hypotension and leukocytosis. TECHNIQUE: CT abdomen and pelvis without contrast. COMPARISON: 05/07/2016. FINDINGS: Lower chest: Unremarkable. Liver: Enlarged measuring 27 cm in greatest dimension. A 6 cm cystic lesion is along the medial margin of the liver superiorly as demonstrated on series 201, image 41. There is focal fatty infiltration adjacent to the false form ligament. Otherwise unremarkable. Gallbladder and bile ducts: No stones or inflammation. No biliary dilatation. Pancreas: Unremarkable. No mass or inflammation. Spleen: Normal in size. No masses. Adrenal glands: Normal in size. No nodules. Kidneys: Normal in size. No suspicious masses, stones, or hydronephrosis. GI tract: Unremarkable. Normal in caliber. No sign of mass or inflammation. Normal appendix. Vasculature: Unremarkable. Lymph nodes: No lymphadenopathy. Abdominal wall/Omentum/Peritoneum: Unremarkable. No sign of mass or infiltration. No free air or significant free fluid. Pelvis: Unremarkable. No pelvic masses. Bones: Unremarkable for age. IMPRESSION: 1. No acute or specific finding to explain abdominal pain, nausea or vomiting. Specifically the GI tract is normal in caliber and appearance. 2. Stable hepatomegaly. 3. New since the prior exam from 5 years ago is a 6 cm cystic lesion along the superior medial margin of the liver. This lesion cannot be further characterized on this exam. Further evaluation with contrast-enhanced MRI is optional. 4. No other acute findings or significant changes from the prior exam. Please note that all CT scans at this facility use dose modulation, iterative reconstruction, and/or weight-based dosing when appropriate to reduce radiation dose to as low as reasonably achievable. Dictated by Fred Earl MD @ 06/17/2021 8:37:12 AM (Electronically Signed)
[2021-06-17] MEDS ORDERED: Enoxaparin 40 MG/0.4 ML Syringe SUBCUT ONE (10:15)
[2021-06-17] MEDS ORDERED: Heparin Sodium 5,000 Units/ML Vial SUBCUT STA (10:16)
[2021-06-17 11:52] VITALS: BP 117/66; PULSE 97
== END 2021-06-17 13:36 ==
LOC: MW.ED 21:42
DX: N39.0 Urinary tract infection, site not specified (principal); N17.9 Acute kidney failure, unspecified; E11.21 Type 2 diabetes mellitus with diabetic nephropathy; E11.40 Type 2 diabetes mellitus with diabetic neuropathy, unspecified; I25.10 Atherosclerotic heart disease of native coronary artery without angina pectoris; Z87.891 Personal history of nicotine dependence; Z79.4 Long term (current) use of insulin; Z79.02 Long term (current) use of antithrombotics/antiplatelets; Z79.82 Long term (current) use of aspirin; Z79.899 Other long term (current) drug therapy; Z88.8 Allergy status to other drugs, medicaments and biological substances
CPT/HCPCS: 36415; 71045; 74176; 80048; 80053; 80179; 81001; 81025; 82550; 82803; 82947; 83605; 83690; 85025; 87040; 87635; 93005; 96365; 96366; 96367; 96375; 99291; A9270; J0696; J1644; J1885; J2270; J2405; J3370; J7030; J7120; J1815-GY; U0002

== ENCOUNTER 2021-08-17 21:11 | Emergency (ER) | payer BC ==
[2021-08-17] MEDS ORDERED: Sodium Chloride 0.9% 2.5 ML Syringe FLUSH PRN (21:34)
[2021-08-17] MEDS ORDERED: Sodium Chloride 0.9% 10 ML Syringe FLUSH PRN (21:34)
[2021-08-17] MEDS ORDERED: Lactated Ringers 1,000 ML IV ONE (21:37)
--- NOTE | 2021-08-17 21:37 | EDM.PDOC ---
ED HPI GENERAL MEDICAL PROBLEM - General Chief Complaint: Genitourinary Problem Stated Complaint: PAIN IN LOWER REGION Time Seen by Provider: 08/17/21 21:20 Source of Information: Reports: Patient History Limitations: Reports: No Limitations - History of Present Illness INITIAL COMMENTS - FREE TEXT/NARRATIVE: 40-year-old female with history of UTI, diabetes, presents with dysuria and perineal pain for 1 week. She denies fever, chills, vomiting, diarrhea, flank pain, vaginal discharge, itching. She notes pain that is moderate, constant, localized to the perineum, nonradiating, no alleviating or exacerbating factors. ROS: A 10-point review of systems, other than pertinent positives and negatives as stated per HPI, is otherwise negative Past medical history: No additional pertinent history Past Surgical history: No additional pertinent history Social history: No additional pertinent history Family history: No additional pertinent history PHYSICAL EXAM General: AOx4, GCS = 15, No distress HEENT: dry mucous membrane Neck: supple, no meningismus, no Kernig or Brudzinski Cardiac: S1S2 tachycardia Respiratory: CTAB, no crackles or rales, no wheezing Abdomen: Soft, nontender, no rebound or guarding, nondistended, no pulsatile mass. : No Bartholin cyst or abscess. Extensive erythema and mild tenderness to the perineum with no crepitus. Back: nontender Musculoskeletal: NVI distally, no deformity Neuro: No focal deficits, CN 2 - 12 WNL. Vaginal Pain Score (Numeric/FACES): 9 - Related Data Allergies Allergy/AdvReac Type Severity Reaction Status Date / Time Antihistamines - Alkylamine Allergy Hives Verified 08/17/21 21:31 aspirin Allergy Hives Verified 08/17/21 21:31 Home Meds: Home Meds Levothyroxine 100 mcg PO ACBREAKFAST 11/30/20 [History] Sertraline HCl [Zoloft] 100 mg PO DAILY 11/30/20 [History] Chlorthalidone 25 mg PO DAILY 06/16/21 [History] Losartan Potassium 100 mg PO 1700 06/16/21 [History] Spironolactone [Aldactone] 25 mg PO BID 06/16/21 [History] Ticagrelor [Brilinta] 90 mg PO BID 06/16/21 [History] amLODIPine [Norvasc] 5 mg PO DAILY 06/16/21 [History] Rosuvastatin Calcium 20 mg PO DAILY 06/17/21 [History] Ciprofloxacin [Cipro XR] 500 mg PO BID #20 tab.er 06/22/21 [Rx] Insulin Glarg,Human.Rec.Analog [Lantus] 30 unit SUBCUT BID #10 ml 06/22/21 [Rx] Insulin Lispro [Humalog] See Protocol SUBCUT QIDACANDBED #10 ml 06/22/21 [Rx] Metoprolol Tartrate [Lopressor] 12.5 mg PO Q12H #15 tablet 06/22/21 [Rx] Phosphorus #1 [Neutra-Phos] 250 mg PO BID #4 tablet 06/22/21 [Rx] Phenazopyridine [Pyridium] 100 mg PO TID PRN #15 tab 08/18/21 [Rx] cephALEXin [Keflex] 500 mg PO Q8H #30 cap 08/18/21 [Rx] Past Medical History - Past Health History Medical/Surgical History: Denies Medical/Surgical History HEENT History: Reports: None, Other (See Below) Other HEENT History: wear upper dentures Cardiovascular History: Reports: High Cholesterol, Hypertension, DC, Stents Other Cardiovascular History: x5 stents placed Respiratory History: Reports: None Gastrointestinal History: Reports: None Genitourinary History: Reports: Diabetic Nephropathy, UTI, Recurrent Other Genitourinary History: Yeast infections 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 VALVE 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 History: Genital warts Musculoskeletal History: Reports: None Neurological History: Reports: Neuropathy, Diabetic Psychiatric History: Reports: Anxiety, Depression, PTSD Endocrine/Metabolic History: Reports: Diabetes, Type II, Hypothyroidism Other Endocrine/Metabolic History: does not track sugars at home, takes 40 units Insulin Aspart at meal times, and 46 units Insulin Glargine BID Hematologic History: Reports: None Immunologic History: Reports: None Oncologic (Cancer) History: Reports: None Dermatologic History: Reports: None - Infectious Disease History Infectious Disease History: Reports: Chicken Pox - Past Surgical History Head Surgeries/Procedures: Reports: None HEENT Surgical History: Reports: Tonsillectomy Other HEENT Surgeries/Procedures: 2 throat surgeries Cardiovascular Surgical History: Reports: Coronary Artery Stent Respiratory Surgical History: Reports: None GI Surgical History: Reports: None Female Surgical History: Reports: Section Endocrine Surgical History: Reports: None Neurological Surgical History: Reports: None Musculoskeletal Surgical History: Reports: None Dermatological Surgical History: Reports: None, Other (See Below) Social & Family History - Family History Family Medical History: No Pertinent Family History Respiratory: Reports: COPD Endocrine/Metabolic: Reports: Diabetes, type II Oncologic: Reports: Breast, Uterine - Tobacco Use Second Hand Smoke Exposure: No - Caffeine Use Caffeine Use: Reports: None - Recreational Drug Use Recreational Drug Use: No - Sexual History Sexual History: Reports: Sexually Active - Living Situation & Occupation Occupation: Employed ED ROS GENERAL - Review of Systems Review Of Systems: See Below (see dictation) ED EXAM, GENERAL - Physical Exam Exam: See Below (see dictation) Course - Vital Signs Last Recorded V/S: Last Vital Signs Temp 98.3 F 08/17/21 21:27 Pulse 98 08/18/21 01:12 Resp 18 08/18/21 01:12 BP 131/74 08/18/21 01:12 Pulse Ox 97 08/18/21 01:12 - Orders/Labs/Meds Orders: Active Orders 24 hr Category Date Time Status Dextrose 50% in Water Med 08/17/21 22:34 Active 50 ml IVPUSH ASDIRECTED PRN Dextrose 50% in Water Med 08/17/21 23:51 Active 50 ml IVPUSH ASDIRECTED PRN Glucagon,Human Recombinant [GlucaGen] Med 08/17/21 22:34 Active 1 mg IM ASDIRECTED PRN Glucagon,Human Recombinant [GlucaGen] Med 08/17/21 23:51 Active 1 mg IM ASDIRECTED PRN Sodium Chloride 0.9% [Saline Flush] Med 08/17/21 21:34 Active 10 ml FLUSH ASDIRECTED PRN Sodium Chloride 0.9% [Saline Flush] Med 08/17/21 21:34 Active 2.5 ml FLUSH ASDIRECTED PRN Saline Lock Insert [OM.PC] Stat Oth 08/17/21 21:34 Ordered Medication Orders Dextrose/Water (50% Dextrose In Water 50 Ml Syringe) 50 ml IVPUSH ASDIRECTED PRN PRN Reason: Hypoglycemia Dextrose/Water (50% Dextrose In Water 50 Ml Syringe) 50 ml IVPUSH ASDIRECTED PRN PRN Reason: Hypoglycemia Glucagon (Glucagon,Human Recombinant 1 Mg Vial) 1 mg IM ASDIRECTED PRN PRN Reason: Hypoglycemia Glucagon (Glucagon,Human Recombinant 1 Mg Vial) 1 mg IM ASDIRECTED PRN PRN Reason: Hypoglycemia Sodium Chloride (Sodium Chloride 0.9% 10 Ml Syringe) 10 ml FLUSH ASDIRECTED PRN PRN Reason: Keep Vein Open Last Admin: 08/17/21 21:53 Dose: 10 ml Documented by: LIBRADO Sodium Chloride (Sodium Chloride 0.9% 2.5 Ml Syringe) 2.5 ml FLUSH ASDIRECTED PRN PRN Reason: Keep Vein Open Last Admin: 08/17/21 21:53 Dose: 2.5 ml Documented by: LIBRADO Labs: Laboratory Tests 08/17/21 08/17/21 08/17/21 Range/Units 21:20 21:51 21:51 WBC 17.24 H (4.0-11.0) K/uL RBC 4.78 (4.30-5.90) M/uL Hgb 11.5 L (12.0-16.0) g/dL Hct 36.1 (36.0-46.0) % MCV 75.5 L (80.0-98.0) fL MCH 24.1 L (27.0-32.0) pg MCHC 31.9 (31.0-37.0) g/dL RDW Std Deviation 46.6 (28.0-62.0) fl RDW Coeff of Mile 17 H (11.0-15.0) % Plt Count 552 H (150-400) K/uL MPV 10.80 (7.40-12.00) fL Add Manual Diff YES Neutrophils % (Manual) 64 (48.0-80.0) % Band Neutrophils % 3 % Lymphocytes % (Manual) 24 (16.0-40.0) % Monocytes % (Manual) 5 (0.0-15.0) % Eosinophils % (Manual) 1 (0.0-7.0) % Basophils % (Manual) 1 (0.0-1.5) % Metamyelocytes % 2 % Nucleated RBC % 0.3 /100WBC Absolute Seg Neuts 11.0 H (1.4-5.7) Band Neutrophils # 0.5 Lymphocytes # (Manual) 4.1 H (0.6-2.4) Monocytes # (Manual) 0.9 H (0.0-0.8) Eosinophils # (Manual) 0.2 (0.0-0.7) Basophils # (Manual) 0.2 H (0.0-0.1) Absolute Metamyelocyte 0.3 Nucleated RBCs # 0 K/uL Sodium 128 L (136-145) mmol/L Potassium 4.6 (3.5-5.1) mmol/L Chloride 91 L (98-107) mmol/L Carbon Dioxide 27.3 (21.0-32.0) mmol/L BUN 20 H (7.0-18.0) mg/dL Creatinine 1.1 H (0.6-1.0) mg/dL Est Cr Clr Drug Dosing 52.69 mL/min Estimated GFR (MDRD) 54.5 ml/min Glucose 584 H* (74-106) mg/dL POC Glucose (70-99) mg/dL Calcium 9.5 (8.5-10.1) mg/dL Total Bilirubin 0.2 (0.2-1.0) mg/dL AST 10 L (15-37) IU/L ALT 17 (14-63) IU/L Alkaline Phosphatase 175 H (46-116) U/L Total Protein 8.0 (6.4-8.2) g/dL Albumin 2.6 L (3.4-5.0) g/dL Globulin 5.4 H (2.6-4.0) g/dL Albumin/Globulin Ratio 0.5 L (0.9-1.6) Urine Color YELLOW Urine Appearance SLT CLOUDY Urine pH 5.5 (5.0-8.0) Ur Specific [place] 1.020 (1.001-1.035) Urine Protein 100 H (NEGATIVE) mg/dL Urine Glucose (UA) >=1000 (NEGATIVE) mg/dL Urine Ketones TRACE H (NEGATIVE) mg/dL Urine Occult Blood MODERATE H (NEGATIVE) Urine Nitrite POSITIVE H (NEGATIVE) Urine Bilirubin NEGATIVE (NEGATIVE) Urine Urobilinogen 0.2 (<2.0) EU/dL Ur Leukocyte Esterase SMALL H (NEGATIVE) Urine RBC 1-4 (0-2/HPF) Urine WBC 40-50 (0-5/HPF) Ur Epithelial Cells FEW (NONE-FEW) Urine Bacteria 3+ H (NEGATIVE) Ketones (NEG) 08/17/21 08/17/21 08/18/21 Range/Units 21:51 23:40 00:33 WBC (4.0-11.0) K/uL RBC (4.30-5.90) M/uL Hgb (12.0-16.0) g/dL Hct (36.0-46.0) % MCV (80.0-98.0) fL MCH (27.0-32.0) pg MCHC (31.0-37.0) g/dL RDW Std Deviation (28.0-62.0) fl RDW Coeff of Mile (11.0-15.0) % Plt Count (150-400) K/uL MPV (7.40-12.00) fL Add Manual Diff Neutrophils % (Manual) (48.0-80.0) % Band Neutrophils % % Lymphocytes % (Manual) (16.0-40.0) % Monocytes % (Manual) (0.0-15.0) % Eosinophils % (Manual) (0.0-7.0) % Basophils % (Manual) (0.0-1.5) % Metamyelocytes % % Nucleated RBC % /100WBC Absolute Seg Neuts (1.4-5.7) Band Neutrophils # Lymphocytes # (Manual) (0.6-2.4) Monocytes # (Manual) (0.0-0.8) Eosinophils # (Manual) (0.0-0.7) Basophils # (Manual) (0.0-0.1) Absolute Metamyelocyte Nucleated RBCs # K/uL Sodium (136-145) mmol/L Potassium (3.5-5.1) mmol/L Chloride (98-107) mmol/L Carbon Dioxide (21.0-32.0) mmol/L BUN (7.0-18.0) mg/dL Creatinine (0.6-1.0) mg/dL Est Cr Clr Drug Dosing mL/min Estimated GFR (MDRD) ml/min Glucose (74-106) mg/dL POC Glucose 404 H* 366 H (70-99) mg/dL Calcium (8.5-10.1) mg/dL Total Bilirubin (0.2-1.0) mg/dL AST (15-37) IU/L ALT (14-63) IU/L Alkaline Phosphatase (46-116) U/L Total Protein (6.4-8.2) g/dL Albumin (3.4-5.0) g/dL Globulin (2.6-4.0) g/dL Albumin/Globulin Ratio (0.9-1.6) Urine Color Urine Appearance Urine pH (5.0-8.0) Ur Specific [place] (1.001-1.035) Urine Protein (NEGATIVE) mg/dL Urine Glucose (UA) (NEGATIVE) mg/dL Urine Ketones (NEGATIVE) mg/dL Urine Occult Blood (NEGATIVE) Urine Nitrite (NEGATIVE) Urine Bilirubin (NEGATIVE) Urine Urobilinogen (<2.0) EU/dL Ur Leukocyte Esterase (NEGATIVE) Urine RBC (0-2/HPF) Urine WBC (0-5/HPF) Ur Epithelial Cells (NONE-FEW) Urine Bacteria (NEGATIVE) Ketones SMALL H (NEG) Meds: Medications Generic Name Dose Route Start Last Admin Trade Name Freq PRN Reason Stop Dose Admin Dextrose/Water 50 ml 08/17/21 22:34 50% Dextrose In Water 50 Ml Syringe IVPUSH ASDIRECTED PRN Hypoglycemia Dextrose/Water 50 ml 08/17/21 23:51 50% Dextrose In Water 50 Ml Syringe IVPUSH ASDIRECTED PRN Hypoglycemia Glucagon 1 mg 08/17/21 22:34 Glucagon,Human Recombinant 1 Mg Vial IM ASDIRECTED PRN Hypoglycemia Glucagon 1 mg 08/17/21 23:51 Glucagon,Human Recombinant 1 Mg Vial IM ASDIRECTED PRN Hypoglycemia Sodium Chloride 10 ml 08/17/21 21:34 08/17/21 21:53 Sodium Chloride 0.9% 10 Ml Syringe FLUSH 10 ml ASDIRECTED PRN Administration Keep Vein Open Sodium Chloride 2.5 ml 08/17/21 21:34 08/17/21 21:53 Sodium Chloride 0.9% 2.5 Ml Syringe FLUSH 2.5 ml ASDIRECTED PRN Administration Keep Vein Open Discontinued Medications Generic Name Dose Route Start Last Admin Trade Name Freq PRN Reason Stop Dose Admin Lactated Ringer's 1,000 mls @ 999 mls/hr 08/17/21 21:37 08/17/21 21:53 Ringers, Lactated IV 08/17/21 22:37 999 mls/hr .BOLUS ONE Administration Ceftriaxone Sodium/Dextrose 1 50 mls @ 100 mls/hr 08/17/21 22:01 08/17/21 22:08 gm/ Premix IV 08/17/21 22:30 100 mls/hr ONETIME ONE Administration Sodium Chloride 1,000 mls @ 999 mls/hr 08/17/21 22:15 Normal Saline IV .BOLUS BRENDA Sodium Chloride 1,000 mls @ 999 mls/hr 08/17/21 22:45 Normal Saline IV .BOLUS BRENDA Sodium Chloride 1,000 mls @ 999 mls/hr 08/17/21 22:49 08/17/21 22:51 Normal Saline IV 08/17/21 23:49 999 mls/hr .BOLUS ONE Administration Sodium Chloride 1,000 mls @ 999 mls/hr 08/17/21 22:55 08/17/21 22:55 Normal Saline IV 08/17/21 23:55 Not Given .BOLUS ONE Insulin Human Regular 5 unit 08/17/21 22:34 08/17/21 22:54 Insulin Regular, Human 100 Units/Ml 10 Ml Vial IVPUSH 08/17/21 22:35 5 units ONETIME ONE Administration Protocol Insulin Human Regular 5 unit 08/17/21 23:51 08/17/21 23:59 Insulin Regular, Human 100 Units/Ml 10 Ml Vial IVPUSH 08/17/21 23:52 5 units ONETIME ONE Administration Protocol Iopamidol 100 ml 08/17/21 23:22 08/17/21 23:59 Iopamidol 755 Mg/Ml 500 Ml Multipack Bottle IVPUSH 08/17/21 23:23 100 ml ONETIME ONE Administration Morphine Sulfate 4 mg 08/17/21 22:37 08/17/21 22:54 Morphine 4 Mg/Ml Vial IVPUSH 08/17/21 22:38 4 mg ONETIME ONE Administration - Re-Assessments/Exams Free Text/Narrative Re-Assessment/Exam: 08/18/21 01:38 After IV fluids and 10 units regular insulin in the ER, the patient improved and is currently stable for discharge. I performed a repeat exam and did not appreciate new abnormal findings. Patient exhibits normal vital signs and has a normal gait on road test. I advised the patient to return to the ER for reevaluation if symptoms worsened, including fever, worsening pain, or any other worrisome symptoms. I instructed the patient to follow up with their PCP within 2-3 days. MEDICAL DECISION MAKING: This patient was evaluated during the COVID-19 pandemic where resources and capacity might be affected. I reviewed the patients past medical records, lab and radiographic findings. I discussed the case with the patient. My differential diagnosis included: Brittany gangrene, diabetic ulcer, cellulitis. Patient chemistry demonstrates blood glucose = 584, her anion gap = 10, CO2 within normal limits, she is not acidotic. I do not suspect DKA. She was given 10 units IV regular insulin and 2 L IV fluids. Subsequent blood glucose improved. Her urine demonstrates UTI, she was given IV Rocephin in the ED. CT does not demonstrate Brittany gangrene. Patient stable for outpatient antibiotic treatment with strict return precautions. Departure - Departure Time of Disposition: 01:28 Disposition: Home, Self-Care 01 Condition: Good Clinical Impression: UTI, Urinary tract infectious disease, Hyperglycemia Type 2 diabetes mellitus Qualifiers: Diabetes mellitus complication status: with neurologic complications Diabetes mellitus complication detail: with polyneuropathy - Discharge Information *PRESCRIPTION DRUG MONITORING PROGRAM REVIEWED*: Not Applicable *COPY OF PRESCRIPTION DRUG MONITORING REPORT IN PATIENT JACQUELINE: Not Applicable Prescriptions: cephALEXin [Keflex] 500 mg PO Q8H #30 cap Phenazopyridine [Pyridium] 100 mg PO TID PRN #15 tab PRN Reason: Abdominal Pain Instructions: Hyperglycemia, [id number], Daily Diabetes Mellitus Record, Diab etes Mellitus Emergency Preparedness Plan, Urinary Tract Infection, Adult, Type 2 Diabetes Mellitus, Self-Care, Adult Referrals: PCP,None [Primary Care Provider] - Forms: ED Department Discharge Additional Instructions: The need for follow-up, as well as the timing and circumstances, are variable depending upon the specifics of your emergency department visit. If you don't have a primary care physician on staff, we will provide you with a referral. We always advise you to contact your personal physician following an emergency department visit to inform them of the circumstance of the visit and for follow-up with them and/or the need for any referrals to a consulting specialist. The emergency department will also refer you to a specialist when appropriate. This referral assures that you have the opportunity for follow-up care with a specialist. All of these measure are taken in an effort to provide you with optimal care, which includes your follow-up. Under all circumstances we always encourage you to contact your private physician who remains a resource for coordinating your care. When calling for follow-up care, please make the office aware that this follow-up is from your recent emergency room visit. If for any reason you are refused follow-up, please contact the [facility] Emergency Department at and asked to speak to the emergency department charge nurse. If you do not have a primary care doctor, please follow up with the clinics below within 3-5 days. [facility] - [facility] [address] [place] [id number] [address] Sepsis Event Note (ED) - Evaluation Sepsis Screening Result: No Definite Risk - Focused Exam Vital Signs: Vital Signs Temp Pulse Resp BP Pulse Ox 08/18/21 01:12 98 18 131/74 97 08/17/21 22:24 102 H 17 138/77 100 08/17/21 21:27 98.3 F 115 H 20 161/91 H 95 - My Orders Last 24 Hours: My Active Orders 08/17/21 21:34 Sodium Chloride 0.9% [Saline Flush] 10 ml FLUSH ASDIRECTED PRN Sodium Chloride 0.9% [Saline Flush] 2.5 ml FLUSH ASDIRECTED PRN Saline Lock Insert [OM.PC] Stat 08/17/21 22:34 Dextrose 50% in Water 50 ml IVPUSH ASDIRECTED PRN Glucagon,Human Recombinant [GlucaGen] 1 mg IM ASDIRECTED PRN 08/17/21 23:51 Dextrose 50% in Water 50 ml IVPUSH ASDIRECTED PRN Glucagon,Human Recombinant [GlucaGen] 1 mg IM ASDIRECTED PRN - Assessment/Plan Last 24 Hours: My Active Orders 08/17/21 21:34 Sodium Chloride 0.9% [Saline Flush] 10 ml FLUSH ASDIRECTED PRN Sodium Chloride 0.9% [Saline Flush] 2.5 ml FLUSH ASDIRECTED PRN Saline Lock Insert [OM.PC] Stat 08/17/21 22:34 Dextrose 50% in Water 50 ml IVPUSH ASDIRECTED PRN Glucagon,Human Recombinant [GlucaGen] 1 mg IM ASDIRECTED PRN 08/17/21 23:51 Dextrose 50% in Water 50 ml IVPUSH ASDIRECTED PRN Glucagon,Human Recombinant [GlucaGen] 1 mg IM ASDIRECTED PRN
[2021-08-17] MEDS ORDERED: cefTRIAXone 1 GM in Premix Bag 1 BAG IV ONE (22:01)
[2021-08-17] MEDS ORDERED: Sodium Chloride 0.9% 1,000 ML IV SCH ×2 (22:15→22:45)
[2021-08-17 22:31] LABS: CARBON DIOXIDE,CO2 27.3 mmol/L (21.0-32.0); POTASSIUM,K 4.6 mmol/L (3.5-5.1)
[2021-08-17] MEDS ORDERED: Insulin Regular, Human 100 Units/ML 10 ML Vial IVPUSH ONE ×2 (22:34→23:51)
[2021-08-17] MEDS ORDERED: 50% Dextrose in Water 50 ML Syringe IVPUSH PRN ×2 (22:34→23:51)
[2021-08-17] MEDS ORDERED: Glucagon,Human Recombinant 1 MG Vial IM PRN ×2 (22:34→23:51)
[2021-08-17] MEDS ORDERED: Morphine 4 MG/ML VIAL IVPUSH ONE (22:37)
[2021-08-17] MEDS ORDERED: Sodium Chloride 0.9% 1,000 ML IV ONE ×2 (22:49→22:55)
[2021-08-17] MEDS ORDERED: Iopamidol 755 MG/ML 500 ML Multipack Bottle IVPUSH ONE (23:22)
--- NOTE | 2021-08-18 00:51 | CT ---
INDICATION: Perirectal, vaginal infection TECHNIQUE: CT Abdomen and pelvis with i.v. contrast. Coronal and sagittal reformats were obtained. CONTRAST: 100 mL Isovue 370 COMPARISON: 06/17/2021 FINDINGS: Lower chest: Unremarkable. Moderate atherosclerotic calcifications are noted in the coronary arteries. Liver: Small ill-defined hypodensity is present in the left lobe of the liver, abutting the fissure for the ligamentum teres, which is most likely due to focal fatty infiltration or due to third inflow phenomenon. Severe fatty infiltration is seen within the caudate lobe of the liver which has slightly decreased in size since prior exam. This region was described as having cystic changes on the prior exam. Spleen: Unremarkable. Pancreas: Unremarkable. Gallbladder: Unremarkable. Kidney: A punctate less than 1 mm stone is seen in the lower pole of the left kidney. Mild decreased cortical enhancement is seen in the anterior mid zone of the left kidney with infiltration of adjacent perinephric fat. Adrenal: A small enhancing 1 cm right adrenal nodule is noted without significant interval change. Bowel: Unremarkable. The appendix is normal in appearance and size. Vascular: Unremarkable. Lymph: Unremarkable. Peritoneum: Unremarkable. No pneumoperitoneum is seen. No significant ascites is noted. Pelvis: Small amount of gas is present in the bladder. Soft tissue: No soft tissue abscess, inflammatory changes, or subcutaneous emphysema is identified within the pelvis or perineum. Bone: Unremarkable for age. IMPRESSIONS: 1. Mild decreased cortical enhancement is seen in the anterior mid zone of the left kidney with infiltration of adjacent perinephric fat. Otherwise, imaging follow-up is recommended to document resolution. 2. Small amount of gas is present in the bladder. This is likely due to recent bladder instrumentation but in the absence of this history, a gas forming urinary tract infection should be considered. 3. No soft tissue abscess, inflammatory changes, or subcutaneous emphysema is identified within the pelvis or perineum. 4. A small enhancing 1 cm right adrenal nodule is noted without significant interval change. Dictated by Wesley Ornelas MD @ 08/18/2021 12:48:54 AM Please note that all CT scans at this facility use dose modulation, iterative reconstruction, and/or weight-based dosing when appropriate to reduce radiation dose to as low as reasonably achievable. Dictated by: Wesley Ornelas MD @ 08/18/2021 00:49:10 (Electronically Signed)
[2021-08-18 01:13] VITALS: BP 131/74; PULSE 98
== END 2021-08-18 01:49 | disposition home or self-care (01) ==
LOC: MW.ED 21:11
DX: N39.0 Urinary tract infection, site not specified (principal); E11.65 Type 2 diabetes mellitus with hyperglycemia; E11.42 Type 2 diabetes mellitus with diabetic polyneuropathy; E78.00 Pure hypercholesterolemia, unspecified; I10 Essential (primary) hypertension; I25.2 Old myocardial infarction; E03.9 Hypothyroidism, unspecified; Z95.5 Presence of coronary angioplasty implant and graft; Z88.8 Allergy status to other drugs, medicaments and biological substances; Z79.02 Long term (current) use of antithrombotics/antiplatelets; Z79.899 Other long term (current) drug therapy; Z79.4 Long term (current) use of insulin
CPT/HCPCS: 36415; 74177; 80053; 81001; 82009; 82947; 85025; 96374; 96375; 99284; J0696; J2270; J7030; J7120; Q9967; J1815-GY

== ENCOUNTER 2022-03-08 20:46 | Emergency (ER) | payer BC ==
[2022-03-08 21:02] VITALS: PULSE 100
[2022-03-08] MEDS ORDERED: Lactated Ringers 1,000 ML IV ONE (21:13)
[2022-03-08] MEDS ORDERED: cefTRIAXone 1 GM in Sodium Chloride 0.9% 50 ML IV ONE (23:02)
[2022-03-08] MEDS ORDERED: Ketorolac 30 MG/ML SDV IVPUSH ONE (23:03)
[2022-03-08 23:25] LABS: CARBON DIOXIDE,CO2 26.3 mmol/L (21.0-32.0); POTASSIUM,K 3.4 mmol/L (3.5-5.1)
[2022-03-09] MEDS ORDERED: Cephalexin 500 MG Cap PO STA (00:29)
[2022-03-09 01:24] VITALS: BP 142/81
== END 2022-03-09 00:40 | disposition home or self-care (01) ==
LOC: MW.ED 20:46
DX: N30.00 Acute cystitis without hematuria (principal); E11.21 Type 2 diabetes mellitus with diabetic nephropathy; I10 Essential (primary) hypertension; E78.00 Pure hypercholesterolemia, unspecified; I25.2 Old myocardial infarction; E03.9 Hypothyroidism, unspecified; Z79.4 Long term (current) use of insulin; Z95.5 Presence of coronary angioplasty implant and graft; Z88.8 Allergy status to other drugs, medicaments and biological substances
CPT/HCPCS: 36415; 74176; 80053; 81001; 85025; 87086; 96365; 96375; 99284; A9270; J0696; J1885; J7120; 87147

== ENCOUNTER 2022-12-20 01:43 | Emergency (ER) | payer SELFPAY ==
[2022-12-20] MEDS ORDERED: Sodium Chloride 0.9% 10 ML Syringe FLUSH PRN (01:58)
[2022-12-20] MEDS ORDERED: Sodium Chloride 0.9% 2.5 ML Syringe FLUSH PRN (01:58)
[2022-12-20] MEDS ORDERED: Albuterol/Ipratropium 3.0-0.5 MG/3 ML Neb Soln NEB ONE (01:59)
[2022-12-20 02:48] LABS: CARBON DIOXIDE,CO2 29.7 mmol/L (21.0-32.0); POTASSIUM,K 4.3 mmol/L (3.5-5.1)
[2022-12-20 03:08] LABS: CORONAVIRUS COVID-19 NAA NEGATIVE (NEGATIVE); INFLUENZA A NAA NEGATIVE (NEGATIVE); INFLUENZA B NAA NEGATIVE (NEGATIVE); RESPIRATORY SYNCYTIAL VIR NAA NEGATIVE (NEGATIVE)
[2022-12-20] MEDS ORDERED: Albuterol 8 GM Inhaler INH ONE (03:09)
[2022-12-20 04:47] VITALS: BP 155/61; PULSE 95
== END 2022-12-20 03:39 | disposition home or self-care (01) ==
LOC: MW.ED 01:43
DX: J20.9 Acute bronchitis, unspecified (principal); E78.00 Pure hypercholesterolemia, unspecified; I10 Essential (primary) hypertension; I25.2 Old myocardial infarction; E11.21 Type 2 diabetes mellitus with diabetic nephropathy; E11.40 Type 2 diabetes mellitus with diabetic neuropathy, unspecified; E03.9 Hypothyroidism, unspecified; Z88.8 Allergy status to other drugs, medicaments and biological substances; Z79.899 Other long term (current) drug therapy; Z79.4 Long term (current) use of insulin; Z20.822 Contact with and (suspected) exposure to COVID-19
CPT/HCPCS: 0241U; 36415; 71046; 80053; 83880; 84484; 85025; 93005; 99285; A9270; J3490; 93010; 99283; J7620-GY

== ENCOUNTER 2023-07-26 18:49 | Emergency (ER) | payer BC ==
[2023-07-26] MEDS ORDERED: Lidocaine 1% 5 ML VIAL INJECT ONE (19:24)
[2023-07-26] MEDS ORDERED: Bupivacaine 0.5% 10 ML SDV INJECT ONE (19:24)
[2023-07-26 20:04] VITALS: BP 180/104; PULSE 65
== END 2023-07-26 19:59 | disposition home or self-care (01) ==
LOC: MW.ED 18:49
DX: K02.9 Dental caries, unspecified (principal); I10 Essential (primary) hypertension; E78.00 Pure hypercholesterolemia, unspecified; I25.2 Old myocardial infarction; E11.40 Type 2 diabetes mellitus with diabetic neuropathy, unspecified; E03.9 Hypothyroidism, unspecified; Z79.899 Other long term (current) drug therapy; Z95.5 Presence of coronary angioplasty implant and graft; Z79.4 Long term (current) use of insulin; Z88.6 Allergy status to analgesic agent; Z88.8 Allergy status to other drugs, medicaments and biological substances
CPT/HCPCS: 64400; 99282; S0020; J3490

== ENCOUNTER 2023-09-19 10:14 | Emergency (ER) | payer BC ==
[2023-09-19] MEDS ORDERED: Sodium Chloride 0.9% 10 ML Syringe FLUSH PRN (10:20)
[2023-09-19] MEDS ORDERED: Sodium Chloride 0.9% 2.5 ML Syringe FLUSH PRN (10:20)
[2023-09-19 10:33] LABS: BASOPHILS ABSOLUTE AUTO 0.14 K/uL (0.00-0.20); EOSINOPHILS ABSOLUTE AUTO 0.41 K/uL (0.00-0.45); EOSINOPHILS PERCENT AUTO 2.9 % (0.0-6.0); HEMATOCRIT 49.3 % (37.0-47.0); HEMOGLOBIN 16.5 g/dL (12.0-16.0); IMMATURE GRAN ABSOLUTE AUTO 0.15 K/uL (0.00-0.05); IMMATURE GRAN PERCENT AUTO 1.1 % (0.0-0.4); LYMPHOCYTES ABSOLUTE AUTO 3.32 K/uL (1.00-4.80); LYMPHOCYTES PERCENT AUTO 23.8 % (24.0-44.0); MEAN CORPUSCULAR HEMOGLOBIN 27.5 pg (28.0-32.0); MEAN CORPUSCULAR HGB CONC 33.5 g/dL (32.0-36.0); MEAN CORPUSCULAR VOLUME 82.2 fL (83.0-99.0); MEAN PLATELET VOLUME 10.2 fL (9.4-12.3); MONOCYTES ABSOLUTE AUTO 0.86 K/uL (0.00-0.80); MONOCYTES PERCENT AUTO 6.2 % (0.0-8.0); NEUTROPHILS ABSOLUTE AUTO 9.09 K/uL (1.80-7.70); PLATELET COUNT,PLT 401 K/uL (150-400); WHITE BLOOD CELL COUNT,WBC 13.97 K/uL (3.9-11.3)
[2023-09-19 10:57] LABS: A/G RATIO 0.4 (0.9-1.6); ALBUMIN 2.1 g/dL (3.4-5.0); BILIRUBIN TOTAL 0.2 mg/dL (0.2-1.0); CALCIUM 8.8 mg/dL (8.5-10.1); CREATININE 1.5 mg/dL (0.6-1.0); EST CRCL DRUG DOSING (CG) 39.59 mL/min; MAGNESIUM 1.7 mg/dL (1.8-2.4); POTASSIUM,K 3.6 mmol/L (3.5-5.1)
[2023-09-19 13:56] VITALS: BP 178/89; PULSE 91
[2023-09-19] MEDS ORDERED: Acetaminophen 500 MG Tab PO ONE (14:04)
== END 2023-09-19 14:19 | disposition home or self-care (01) ==
LOC: MW.ED 10:14
DX: R07.9 Chest pain, unspecified (principal); R79.89 Other specified abnormal findings of blood chemistry; I50.9 Heart failure, unspecified; I25.10 Atherosclerotic heart disease of native coronary artery without angina pectoris; E11.40 Type 2 diabetes mellitus with diabetic neuropathy, unspecified; Z95.5 Presence of coronary angioplasty implant and graft; Z79.4 Long term (current) use of insulin; Z79.899 Other long term (current) drug therapy; Z88.6 Allergy status to analgesic agent; Z88.8 Allergy status to other drugs, medicaments and biological substances
CPT/HCPCS: 36415; 71045; 80053; 83735; 83880; 84484; 85025; 85379; 93005; 93970; 99285; A9270; J3490; 93010; 99282

== ENCOUNTER 2023-10-23 09:04 | Inpatient (IN) | payer BC ==
[2023-10-23] MEDS: Sodium Chloride 0.9% 2.5 ML Syringe FLUSH PRN (09:50)
[2023-10-23] MEDS: Sodium Chloride 0.9% 10 ML Syringe FLUSH PRN (09:50)
[2023-10-23 10:07] LABS: BASOPHILS ABSOLUTE AUTO 0.14 K/uL (0.00-0.20); EOSINOPHILS PERCENT AUTO 2.8 % (0.0-6.0); HEMATOCRIT 47.5 % (37.0-47.0); HEMOGLOBIN 15.6 g/dL (12.0-16.0); IMMATURE GRAN ABSOLUTE AUTO 0.13 K/uL (0.00-0.05); IMMATURE GRAN PERCENT AUTO 0.9 % (0.0-0.4); LYMPHOCYTES ABSOLUTE AUTO 2.11 K/uL (1.00-4.80); LYMPHOCYTES PERCENT AUTO 14.9 % (24.0-44.0); MEAN CORPUSCULAR HEMOGLOBIN 27.7 pg (28.0-32.0); MEAN CORPUSCULAR HGB CONC 32.8 g/dL (32.0-36.0); MEAN CORPUSCULAR VOLUME 84.2 fL (83.0-99.0); MONOCYTES ABSOLUTE AUTO 1.16 K/uL (0.00-0.80); MONOCYTES PERCENT AUTO 8.2 % (0.0-8.0); NEUTROPHILS ABSOLUTE AUTO 10.22 K/uL (1.80-7.70); NEUTROPHILS PERCENT AUTO 72.2 % (41.0-71.0); PLATELET COUNT,PLT 373 K/uL (150-400); RED BLOOD CELL COUNT 5.64 M/uL (4.10-5.30); WHITE BLOOD CELL COUNT,WBC 14.16 K/uL (3.9-11.3)
[2023-10-23 10:22] LABS: CALCIUM 7.8 mg/dL (8.5-10.1); CREATININE 1.5 mg/dL (0.6-1.0); EST CRCL DRUG DOSING (CG) 39.59 mL/min; POTASSIUM,K 4.5 mmol/L (3.5-5.1)
[2023-10-23] MEDS: Iopamidol 755 MG/ML 500 ML Multipack Bottle IVPUSH STA (11:31)
[2023-10-23] MEDS: Dexamethasone 10 MG/ML SDV IVPUSH ONE (12:44)
[2023-10-23] MEDS: Ampicillin/Sulbactam Na 3 GM in Sodium Chloride 0.9% 100 ML IV SCH ×2 (12:44→17:57)
[2023-10-23] MEDS ORDERED: Glucagon,Human Recombinant 1 MG Vial IM PRN ×2 (13:33→19:04)
[2023-10-23] MEDS ORDERED: 50% Dextrose in Water 50 ML Syringe IVPUSH PRN (13:33)
[2023-10-23] MEDS ORDERED: Naloxone 0.4 MG/ML SDV IVPUSH PRN (13:54)
[2023-10-23] MEDS ORDERED: Morphine 2 MG/ML SYRINGE IVPUSH PRN (13:54)
[2023-10-23] MEDS ORDERED: LOSARTAN POTASSIUM 100 MG PO SCH (14:00)
[2023-10-23] MEDS: Enoxaparin 40 MG/0.4 ML Syringe SUBCUT SCH (16:59)
[2023-10-23] MEDS: Insulin Aspart 100 Units/ML 3 ML Pen SUBCUT SCH (16:59)
[2023-10-23] MEDS: Losartan 50 MG Tab PO SCH (17:00)
[2023-10-23] MEDS: traMADol 50 MG Tab PO PRN (18:00)
[2023-10-23] MEDS: Dexamethasone 4 MG/ML SDV IVPUSH SCH (19:07)
[2023-10-23] MEDS: Insulin Aspart 100 Units/ML 3 ML Pen SUBCUT STA (19:17)
[2023-10-23] MEDS: Insulin Glargine,Hum.Rec.Anlog 100 UNIT/ML 3 ML Pen SUBCUT SCH (21:05)
[2023-10-24] MEDS: Insulin Glargine,Hum.Rec.Anlog 100 UNIT/ML 3 ML Pen SUBCUT SCH (05:49)
[2023-10-24 06:35] LABS: BASOPHILS ABSOLUTE AUTO 0.09 K/uL (0.00-0.20); BASOPHILS PERCENT AUTO 0.5 % (0.0-1.0); HEMATOCRIT 44.3 % (37.0-47.0); HEMOGLOBIN 14.7 g/dL (12.0-16.0); IMMATURE GRAN ABSOLUTE AUTO 0.36 K/uL (0.00-0.05); IMMATURE GRAN PERCENT AUTO 1.9 % (0.0-0.4); LYMPHOCYTES ABSOLUTE AUTO 1.99 K/uL (1.00-4.80); LYMPHOCYTES PERCENT AUTO 10.7 % (24.0-44.0); MEAN CORPUSCULAR HEMOGLOBIN 27.7 pg (28.0-32.0); MEAN CORPUSCULAR HGB CONC 33.2 g/dL (32.0-36.0); MEAN CORPUSCULAR VOLUME 83.4 fL (83.0-99.0); MONOCYTES ABSOLUTE AUTO 0.68 K/uL (0.00-0.80); MONOCYTES PERCENT AUTO 3.7 % (0.0-8.0); NEUTROPHILS PERCENT AUTO 83.2 % (41.0-71.0); PLATELET COUNT,PLT 427 K/uL (150-400); RED BLOOD CELL COUNT 5.31 M/uL (4.10-5.30); WHITE BLOOD CELL COUNT,WBC 18.62 K/uL (3.9-11.3)
[2023-10-24 06:59] LABS: A/G RATIO 0.3 (0.9-1.6); ALBUMIN 1.5 g/dL (3.4-5.0); BILIRUBIN TOTAL 0.2 mg/dL (0.2-1.0); CALCIUM 7.6 mg/dL (8.5-10.1); CARBON DIOXIDE,CO2 21.8 mmol/L (21.0-32.0); CREATININE 1.4 mg/dL (0.6-1.0); EST CRCL DRUG DOSING (CG) 42.42 mL/min; MAGNESIUM 2.8 mg/dL (1.8-2.4); POTASSIUM,K 5.4 mmol/L (3.5-5.1); PROTEIN TOTAL,TP 6.2 g/dL (6.4-8.2)
[2023-10-24] MEDS: Sodium Chloride 0.9% 1,000 ML IV ONE (12:05)
[2023-10-24] MEDS ORDERED: Nicotine 21 MG/24 Hr Patch TRDERM PRN (12:59)
[2023-10-24] MEDS: Metoprolol Tartrate 25 MG Tab PO SCH (13:16)
[2023-10-24] MEDS: Sertraline 100 MG Tab PO SCH (13:17)
[2023-10-24 14:45] LABS: CALCIUM 7.6 mg/dL (8.5-10.1); CARBON DIOXIDE,CO2 21.7 mmol/L (21.0-32.0); CREATININE 1.6 mg/dL (0.6-1.0); EST CRCL DRUG DOSING (CG) 37.12 mL/min; POTASSIUM,K 5.4 mmol/L (3.5-5.1)
[2023-10-25 06:10] LABS: HEMATOCRIT 47.3 % (37.0-47.0); HEMOGLOBIN 15.6 g/dL (12.0-16.0); MEAN CORPUSCULAR HEMOGLOBIN 28.1 pg (28.0-32.0); MEAN CORPUSCULAR VOLUME 85.2 fL (83.0-99.0); MEAN PLATELET VOLUME 10.1 fL (9.4-12.3); PLATELET COUNT,PLT 507 K/uL (150-400); RED BLOOD CELL COUNT 5.55 M/uL (4.10-5.30); WHITE BLOOD CELL COUNT,WBC 25.15 K/uL (3.9-11.3)
[2023-10-25 06:36] LABS: CALCIUM 7.7 mg/dL (8.5-10.1); CREATININE 1.4 mg/dL (0.6-1.0); EST CRCL DRUG DOSING (CG) 42.42 mL/min; MAGNESIUM 3.1 mg/dL (1.8-2.4); POTASSIUM,K 5.4 mmol/L (3.5-5.1)
[2023-10-25 06:40] LABS: LYMPHOCYTES ABSOLUTE MAN 3.02 K/uL (1.00-4.80); LYMPHOCYTES PERCENT MAN 12 % (24-44); METAMYELOCYTE ABSOLUTE MAN 0.25; METAMYELOCYTE PERCENT MAN 1 %; MONOCYTES ABSOLUTE MAN 0.75 K/uL (0.00-0.80); MONOCYTES PERCENT MAN 3 % (0-8); SEG NEUTROPHILS ABSOLUTE MAN 21.13 K/uL (1.80-7.70); SEG NEUTROPHILS PERCENT MAN 84 % (41-71)
[2023-10-25] MEDS: Losartan 50 MG Tab PO SCH (13:14)
[2023-10-25] MEDS: traZODone 50 MG Tab PO SCH (20:24)
[2023-10-25] MEDS: atorvaSTATin 40 MG Tab PO SCH (20:24)
[2023-10-25] MEDS: Insulin Glargine,Hum.Rec.Anlog 100 UNIT/ML 3 ML Pen SUBCUT SCH (20:26)
[2023-10-25] MEDS: Ondansetron 4 MG/2 ML SDV IVPUSH PRN (21:18)
[2023-10-26 06:06] LABS: HEMATOCRIT 44.8 % (37.0-47.0); HEMOGLOBIN 14.6 g/dL (12.0-16.0); MEAN CORPUSCULAR HEMOGLOBIN 28.3 pg (28.0-32.0); MEAN CORPUSCULAR HGB CONC 32.6 g/dL (32.0-36.0); MEAN CORPUSCULAR VOLUME 86.8 fL (83.0-99.0); MEAN PLATELET VOLUME 9.8 fL (9.4-12.3); PLATELET COUNT,PLT 460 K/uL (150-400); RED BLOOD CELL COUNT 5.16 M/uL (4.10-5.30); WHITE BLOOD CELL COUNT,WBC 22.15 K/uL (3.9-11.3)
[2023-10-26 06:28] LABS: CALCIUM 7.2 mg/dL (8.5-10.1); CARBON DIOXIDE,CO2 22.4 mmol/L (21.0-32.0); CREATININE 1.5 mg/dL (0.6-1.0); EST CRCL DRUG DOSING (CG) 39.59 mL/min; POTASSIUM,K 4.9 mmol/L (3.5-5.1)
[2023-10-26] MEDS: Pantoprazole 40 MG Tab.CR PO SCH (06:46)
[2023-10-26 07:09] LABS: LYMPHOCYTES ABSOLUTE MAN 5.32 K/uL (1.00-4.80); LYMPHOCYTES PERCENT MAN 24 % (24-44); METAMYELOCYTE ABSOLUTE MAN 0.22; METAMYELOCYTE PERCENT MAN 1 %; MONOCYTES ABSOLUTE MAN 1.11 K/uL (0.00-0.80); MONOCYTES PERCENT MAN 5 % (0-8); SEG NEUTROPHILS ABSOLUTE MAN 15.51 K/uL (1.80-7.70); SEG NEUTROPHILS PERCENT MAN 70 % (41-71)
[2023-10-26] MEDS: Dexamethasone 4 MG/ML SDV IVPUSH SCH (08:44)
[2023-10-26] MEDS: Acetaminophen 325 MG Tab PO PRN (08:48)
[2023-10-26] MEDS ORDERED: Insulin Glargine,Hum.Rec.Anlog 100 UNIT/ML 3 ML Pen SUBCUT SCH ×2 (09:00→21:00)
[2023-10-26] MEDS: 50% Dextrose in Water 50 ML Syringe IVPUSH PRN (09:17)
[2023-10-26] MEDS: Dextrose 5%-0.45% NaCl 1,000 ML IV SCH (09:20)
[2023-10-26] MEDS: Dexamethasone 4 MG/ML SDV IVPUSH ONE (13:04)
[2023-10-26 15:14] VITALS: BP 123/69; PULSE 67
[2023-10-26] MEDS ORDERED: Dexamethasone 4 MG/ML SDV IVPUSH SCH (21:00)
== END 2023-10-26 14:50 | DRG 383 ==
LOC: MW.ED 09:04 → INTOOBSV 12:56 → MW.MS 12:56 → OBSVTOIN 12:56 → MW.MS 13:03 → OBSVTOIN 10-25 10:44 → MW.MS 10-25 18:23
PROVIDERS: ADMIT Family Medicine; ATTEND Family Medicine
DX: L02.01 Cutaneous abscess of face (principal); N17.9 Acute kidney failure, unspecified; E11.649 Type 2 diabetes mellitus with hypoglycemia without coma; L03.211 Cellulitis of face; E11.42 Type 2 diabetes mellitus with diabetic polyneuropathy; E11.21 Type 2 diabetes mellitus with diabetic nephropathy; E11.22 Type 2 diabetes mellitus with diabetic chronic kidney disease; M27.2 Inflammatory conditions of jaws; I25.10 Atherosclerotic heart disease of native coronary artery without angina pectoris; E11.65 Type 2 diabetes mellitus with hyperglycemia; N18.9 Chronic kidney disease, unspecified; F32.A Depression, unspecified; I12.9 Hypertensive chronic kidney disease with stage 1 through stage 4 chronic kidney disease, or unspecified chronic kidney disease; E03.9 Hypothyroidism, unspecified; D72.829 Elevated white blood cell count, unspecified; Z88.8 Allergy status to other drugs, medicaments and biological substances; Z79.899 Other long term (current) drug therapy; Z79.2 Long term (current) use of antibiotics; Z79.4 Long term (current) use of insulin; I25.2 Old myocardial infarction; Z95.5 Presence of coronary angioplasty implant and graft; Z87.440 Personal history of urinary (tract) infections; Z90.89 Acquired absence of other organs; Z98.890 Other specified postprocedural states
CPT/HCPCS: 36415; 70487; 70487-26; 80048; 80053; 82947; 83735; 84703; 85025; 96361; 96365; 96366; 96372; 96375; 96376; 99284; 99284-25; A9270-GY; G0378; J0295; J1100; J1650; J1815-GY; J2405; J3490; J7030; J7042; Q9967

== ENCOUNTER 2023-11-26 08:12 | Emergency (ER) | payer BC ==
[2023-11-26] MEDS: Meclizine 25 MG Tab PO ONE (09:01)
[2023-11-26] MEDS: Sodium Chloride 0.9% 1,000 ML IV ONE ×2 (09:01→12:42)
[2023-11-26 09:36] LABS: APPEARANCE,URINE CLEAR; BILIRUBIN,URINE NEGATIVE (NEGATIVE); COLOR,URINE YELLOW; GLUCOSE,URINE >=1000 mg/dL (NEGATIVE); KETONES,URINE NEGATIVE (NEGATIVE); NITRITE,URINE NEGATIVE (NEGATIVE); OCCULT BLOOD,URINE SMALL (NEGATIVE); PH,URINE 6.5 (5.0-8.0); PROTEIN,URINE 100 mg/dL (NEGATIVE); UROBILINOGEN,URINE 0.2 EU/dL (<2.0)
[2023-11-26 09:43] LABS: EPITHELIAL CELLS,URINE MODERATE (NONE-FEW); LEUKOCYTE ESTERASE,URINE MODERATE (NEGATIVE)
[2023-11-26 09:44] LABS: BACTERIA,URINE MODERATE (NEGATIVE)
[2023-11-26 10:00] LABS: CORONAVIRUS COVID-19 NAA NEGATIVE (NEGATIVE); INFLUENZA A NAA NEGATIVE (NEGATIVE); INFLUENZA B NAA NEGATIVE (NEGATIVE)
[2023-11-26] MEDS: Metoprolol Tartrate 5 MG/5 ML SDV IVPUSH ONE (10:22)
[2023-11-26 10:58] LABS: BASOPHILS ABSOLUTE AUTO 0.14 K/uL (0.00-0.20); BASOPHILS PERCENT AUTO 1.2 % (0.0-1.0); EOSINOPHILS ABSOLUTE AUTO 0.19 K/uL (0.00-0.45); EOSINOPHILS PERCENT AUTO 1.6 % (0.0-6.0); HEMOGLOBIN 15.3 g/dL (12.0-16.0); IMMATURE GRAN ABSOLUTE AUTO 0.19 K/uL (0.00-0.05); IMMATURE GRAN PERCENT AUTO 1.6 % (0.0-0.4); LYMPHOCYTES ABSOLUTE AUTO 2.43 K/uL (1.00-4.80); LYMPHOCYTES PERCENT AUTO 20.1 % (24.0-44.0); MEAN CORPUSCULAR HEMOGLOBIN 28.2 pg (28.0-32.0); MEAN CORPUSCULAR HGB CONC 33.3 g/dL (32.0-36.0); MEAN CORPUSCULAR VOLUME 84.7 fL (83.0-99.0); MEAN PLATELET VOLUME 10.3 fL (9.4-12.3); MONOCYTES ABSOLUTE AUTO 0.78 K/uL (0.00-0.80); MONOCYTES PERCENT AUTO 6.4 % (0.0-8.0); NEUTROPHILS ABSOLUTE AUTO 8.38 K/uL (1.80-7.70); NEUTROPHILS PERCENT AUTO 69.1 % (41.0-71.0); PLATELET COUNT,PLT 396 K/uL (150-400); RED BLOOD CELL COUNT 5.43 M/uL (4.10-5.30); WHITE BLOOD CELL COUNT,WBC 12.11 K/uL (3.9-11.3)
[2023-11-26 11:33] LABS: A/G RATIO 0.4 (0.9-1.6); ALBUMIN 1.8 g/dL (3.4-5.0); BILIRUBIN TOTAL 0.2 mg/dL (0.2-1.0); C-REACTIVE PROTEIN 1.23 mg/dL (<0.3); CALCIUM 8.9 mg/dL (8.5-10.1); CREATININE 1.5 mg/dL (0.6-1.0); EST CRCL DRUG DOSING (CG) 37.85 mL/min; MAGNESIUM 2.2 mg/dL (1.8-2.4); POTASSIUM,K 4.8 mmol/L (3.5-5.1); PROTEIN TOTAL,TP 6.3 g/dL (6.4-8.2)
[2023-11-26] MEDS: Iopamidol 755 MG/ML 500 ML Multipack Bottle IVPUSH STA (12:25)
[2023-11-26] MEDS: Insulin Regular, Human 100 Units/ML 10 ML Vial IVPUSH ONE (12:41)
[2023-11-26] MEDS: Piperacillin/Tazobactam 4.5 GM in Sodium Chloride 0.9% 100 ML IV ONE (13:26)
[2023-11-26 14:05] VITALS: BP 166/82; PULSE 79
== END 2023-11-26 14:04 | disposition home or self-care (01) ==
LOC: MW.ED 08:12
DX: L03.211 Cellulitis of face (principal); I10 Essential (primary) hypertension; E78.00 Pure hypercholesterolemia, unspecified; I25.2 Old myocardial infarction; K21.9 Gastro-esophageal reflux disease without esophagitis; E11.21 Type 2 diabetes mellitus with diabetic nephropathy; F17.210 Nicotine dependence, cigarettes, uncomplicated; Z79.899 Other long term (current) drug therapy; Z79.4 Long term (current) use of insulin; Z88.5 Allergy status to narcotic agent; Z88.8 Allergy status to other drugs, medicaments and biological substances; Z91.199 Patient's noncompliance with other medical treatment and regimen due to unspecified reason; Z75.8 Other problems related to medical facilities and other health care
CPT/HCPCS: 0240U; 36415; 70450; 70487; 80053; 81001; 82947; 83735; 84484; 85025; 86140; 93005; 96361; 96365; 96375; 99284; A9270; J2543; J3490; J7030; Q9967; 93010; J1815-GY

== ENCOUNTER 2023-12-06 10:22 | Emergency (ER) | payer BC ==
[2023-12-06] MEDS: Sodium Chloride 0.9% 1,000 ML IV ONE (10:57)
[2023-12-06] MEDS: Meclizine 25 MG Tab PO ONE (10:57)
[2023-12-06] MEDS: Ondansetron 4 MG/2 ML SDV IVPUSH ONE (10:57)
[2023-12-06 11:33] LABS: BASOPHILS ABSOLUTE AUTO 0.15 K/uL (0.00-0.20); BASOPHILS PERCENT AUTO 1.2 % (0.0-1.0); EOSINOPHILS ABSOLUTE AUTO 0.13 K/uL (0.00-0.45); HEMATOCRIT 46.2 % (37.0-47.0); HEMOGLOBIN 15.6 g/dL (12.0-16.0); IMMATURE GRAN ABSOLUTE AUTO 0.18 K/uL (0.00-0.05); IMMATURE GRAN PERCENT AUTO 1.5 % (0.0-0.4); LYMPHOCYTES ABSOLUTE AUTO 2.68 K/uL (1.00-4.80); LYMPHOCYTES PERCENT AUTO 21.6 % (24.0-44.0); MEAN CORPUSCULAR HEMOGLOBIN 28.4 pg (28.0-32.0); MEAN CORPUSCULAR HGB CONC 33.8 g/dL (32.0-36.0); MEAN CORPUSCULAR VOLUME 84.2 fL (83.0-99.0); MEAN PLATELET VOLUME 10.5 fL (9.4-12.3); MONOCYTES ABSOLUTE AUTO 0.89 K/uL (0.00-0.80); MONOCYTES PERCENT AUTO 7.2 % (0.0-8.0); NEUTROPHILS ABSOLUTE AUTO 8.37 K/uL (1.80-7.70); NEUTROPHILS PERCENT AUTO 67.5 % (41.0-71.0); PLATELET COUNT,PLT 273 K/uL (150-400); RED BLOOD CELL COUNT 5.49 M/uL (4.10-5.30)
[2023-12-06 11:56] LABS: INR < 0.93 (0.86-1.11)
[2023-12-06] MEDS: Nystatin Topical Powder 15 GM Bottle TOP STA (12:02)
[2023-12-06 12:05] LABS: A/G RATIO 0.4 (0.9-1.6); ALBUMIN 1.5 g/dL (3.4-5.0); BILIRUBIN TOTAL 0.2 mg/dL (0.2-1.0); CALCIUM 8.3 mg/dL (8.5-10.1); CARBON DIOXIDE,CO2 23.6 mmol/L (21.0-32.0); CREATININE 1.3 mg/dL (0.6-1.0); EST CRCL DRUG DOSING (CG) 47.69 mL/min; POTASSIUM,K 4.5 mmol/L (3.5-5.1); PROTEIN TOTAL,TP 5.4 g/dL (6.4-8.2)
[2023-12-06 12:10] LABS: LACTIC ACID 1.3 mmol/L (0.4-2.0)
[2023-12-06 14:17] LABS: APPEARANCE,URINE CLEAR; BILIRUBIN,URINE NEGATIVE (NEGATIVE); COLOR,URINE YELLOW; GLUCOSE,URINE >=1000 mg/dL (NEGATIVE); KETONES,URINE NEGATIVE (NEGATIVE); LEUKOCYTE ESTERASE,URINE NEGATIVE (NEGATIVE); NITRITE,URINE NEGATIVE (NEGATIVE); OCCULT BLOOD,URINE SMALL (NEGATIVE); PROTEIN,URINE >=300 mg/dL (NEGATIVE); UROBILINOGEN,URINE 0.2 EU/dL (<2.0)
[2023-12-06 14:35] LABS: BACTERIA,URINE FEW (NEGATIVE); RBC,URINE 0-2 (0-2/HPF); WBC,URINE 0-1 (0-5/HPF)
[2023-12-06 14:37] LABS: EPITHELIAL CELLS,URINE FEW (NONE-FEW)
[2023-12-07 11:18] VITALS: BP 185/101; PULSE 100
== END 2023-12-06 15:30 | disposition home or self-care (01) ==
LOC: MW.ED 10:22
DX: R42 Dizziness and giddiness (principal); B37.31 Acute candidiasis of vulva and vagina; I10 Essential (primary) hypertension; E78.00 Pure hypercholesterolemia, unspecified; R11.10 Vomiting, unspecified; E03.9 Hypothyroidism, unspecified; I25.2 Old myocardial infarction; K21.9 Gastro-esophageal reflux disease without esophagitis; E11.21 Type 2 diabetes mellitus with diabetic nephropathy; Z79.899 Other long term (current) drug therapy; Z79.4 Long term (current) use of insulin; Z88.5 Allergy status to narcotic agent; Z88.8 Allergy status to other drugs, medicaments and biological substances
CPT/HCPCS: 36415; 80053; 81001; 83605; 85025; 85610; 96361; 96374; 99284; A9270; J2405; J7030

== ENCOUNTER 2023-12-06 22:09 | Emergency (ER) | payer BC ==
[2023-12-06 22:57] LABS: BASE EXCESS VENOUS 1.5 (-2.0-3.0); BASOPHILS ABSOLUTE AUTO 0.15 K/uL (0.00-0.20); BICARBONATE,VENOUS 27 mEq/L (23-28); EOSINOPHILS ABSOLUTE AUTO 0.15 K/uL (0.00-0.45); HEMATOCRIT 44.1 % (37.0-47.0); HEMOGLOBIN 14.9 g/dL (12.0-16.0); IMMATURE GRAN ABSOLUTE AUTO 0.23 K/uL (0.00-0.05); IMMATURE GRAN PERCENT AUTO 1.5 % (0.0-0.4); LYMPHOCYTES ABSOLUTE AUTO 3.47 K/uL (1.00-4.80); LYMPHOCYTES PERCENT AUTO 23.2 % (24.0-44.0); MEAN CORPUSCULAR HEMOGLOBIN 28.7 pg (28.0-32.0); MEAN CORPUSCULAR HGB CONC 33.8 g/dL (32.0-36.0); MEAN CORPUSCULAR VOLUME 84.8 fL (83.0-99.0); MEAN PLATELET VOLUME 10.1 fL (9.4-12.3); MONOCYTES ABSOLUTE AUTO 1.12 K/uL (0.00-0.80); MONOCYTES PERCENT AUTO 7.5 % (0.0-8.0); NEUTROPHILS ABSOLUTE AUTO 9.82 K/uL (1.80-7.70); NEUTROPHILS PERCENT AUTO 65.8 % (41.0-71.0); PCO2 VENOUS 46 mmHG (41-51); PH,VENOUS 7.38 (7.31-7.41); PLATELET COUNT,PLT 340 K/uL (150-400); WHITE BLOOD CELL COUNT,WBC 14.94 K/uL (3.9-11.3)
[2023-12-06 22:59] LABS: PO2 VENOUS < 30 mmHG
[2023-12-06] MEDS: Labetalol 100 MG/20 ML MDV IVPUSH ONE (23:10)
[2023-12-06] MEDS: Sodium Chloride 0.9% 1,000 ML IV ONE ×2 (23:10→23:39)
[2023-12-06 23:23] LABS: A/G RATIO 0.4 (0.9-1.6); ALANINE AMINOTRANSFERASE,ALT 14 IU/L (14-63); ALBUMIN 1.6 g/dL (3.4-5.0); ALKALINE PHOSPHATASE 123 U/L (46-116); ASPARTATE AMNIOTRANSFERASE,AST 11 IU/L (15-37); BILIRUBIN TOTAL 0.1 mg/dL (0.2-1.0); BLOOD UREA NITROGEN,BUN 20 mg/dL (7.0-18.0); CALCIUM 8.2 mg/dL (8.5-10.1); CARBON DIOXIDE,CO2 27.7 mmol/L (21.0-32.0); CHLORIDE,CL 101 mmol/L (98-107); CREATININE 1.6 mg/dL (0.6-1.0); EST CRCL DRUG DOSING (CG) 33.86 mL/min; ETHANOL BLOOD MEDICAL <3 mg/dL; GLUCOSE RANDOM 439 mg/dL (74-106); MAGNESIUM 2.2 mg/dL (1.8-2.4); POTASSIUM,K 5.1 mmol/L (3.5-5.1); PROTEIN TOTAL,TP 5.6 g/dL (6.4-8.2); SODIUM,NA 134 mmol/L (136-145)
[2023-12-06 23:27] LABS: ESTIMATED GFR 41 mL/min (>60)
[2023-12-06] MEDS: Insulin Regular, Human 100 Units/ML 10 ML Vial SUBCUT ONE (23:37)
[2023-12-06] MEDS: Insulin Regular, Human 100 Units/ML 10 ML Vial IVPUSH ONE (23:38)
[2023-12-07 00:59] VITALS: BP 189/81; PULSE 81
== END 2023-12-07 00:58 | disposition home or self-care (01) ==
LOC: MW.ED 22:09
DX: E11.65 Type 2 diabetes mellitus with hyperglycemia (principal); I10 Essential (primary) hypertension; E78.00 Pure hypercholesterolemia, unspecified; I25.2 Old myocardial infarction; E11.21 Type 2 diabetes mellitus with diabetic nephropathy; Z88.8 Allergy status to other drugs, medicaments and biological substances; Z88.6 Allergy status to analgesic agent; Z79.899 Other long term (current) drug therapy; Z86.19 Personal history of other infectious and parasitic diseases; Z75.8 Other problems related to medical facilities and other health care; Z91.148 Patient's other noncompliance with medication regimen for other reason
CPT/HCPCS: 36415; 80053; 80307; 82803; 82947; 83735; 84703; 85025; 96361; 96374; 99284; J7030; J1815-GY; J1921

== ENCOUNTER 2023-12-08 01:28 | Inpatient (IN) | payer BC ==
[2023-12-08] MEDS: Sodium Chloride 0.9% 1,000 ML IV ONE (01:40)
[2023-12-08] MEDS: Labetalol 100 MG/20 ML MDV IVPUSH ONE (02:07)
[2023-12-08 02:22] LABS: BASOPHILS ABSOLUTE AUTO 0.16 K/uL (0.00-0.20); BASOPHILS PERCENT AUTO 0.9 % (0.0-1.0); EOSINOPHILS ABSOLUTE AUTO 0.13 K/uL (0.00-0.45); EOSINOPHILS PERCENT AUTO 0.8 % (0.0-6.0); HEMATOCRIT 41.7 % (37.0-47.0); IMMATURE GRAN ABSOLUTE AUTO 0.25 K/uL (0.00-0.05); IMMATURE GRAN PERCENT AUTO 1.5 % (0.0-0.4); LYMPHOCYTES ABSOLUTE AUTO 2.57 K/uL (1.00-4.80); MEAN CORPUSCULAR HEMOGLOBIN 28.5 pg (28.0-32.0); MEAN CORPUSCULAR HGB CONC 33.6 g/dL (32.0-36.0); MEAN CORPUSCULAR VOLUME 84.9 fL (83.0-99.0); MEAN PLATELET VOLUME 9.8 fL (9.4-12.3); MONOCYTES ABSOLUTE AUTO 1.15 K/uL (0.00-0.80); MONOCYTES PERCENT AUTO 6.7 % (0.0-8.0); NEUTROPHILS ABSOLUTE AUTO 12.86 K/uL (1.80-7.70); NEUTROPHILS PERCENT AUTO 75.1 % (41.0-71.0); PLATELET COUNT,PLT 366 K/uL (150-400); RED BLOOD CELL COUNT 4.91 M/uL (4.10-5.30); WHITE BLOOD CELL COUNT,WBC 17.12 K/uL (3.9-11.3)
[2023-12-08 03:02] LABS: CORONAVIRUS COVID-19 NAA NEGATIVE (NEGATIVE); INFLUENZA A NAA NEGATIVE (NEGATIVE); INFLUENZA B NAA NEGATIVE (NEGATIVE)
[2023-12-08 03:04] LABS: A/G RATIO 0.4 (0.9-1.6); ALANINE AMINOTRANSFERASE,ALT 13 IU/L (14-63); ALBUMIN 1.4 g/dL (3.4-5.0); ALKALINE PHOSPHATASE 83 U/L (46-116); ASPARTATE AMNIOTRANSFERASE,AST 14 IU/L (15-37); BILIRUBIN TOTAL 0.1 mg/dL (0.2-1.0); BLOOD UREA NITROGEN,BUN 20 mg/dL (7.0-18.0); CALCIUM 8.3 mg/dL (8.5-10.1); CARBON DIOXIDE,CO2 25.7 mmol/L (21.0-32.0); CHLORIDE,CL 107 mmol/L (98-107); CREATININE 1.3 mg/dL (0.6-1.0); EST CRCL DRUG DOSING (CG) 43.68 mL/min; ETHANOL BLOOD MEDICAL <3 mg/dL; GLUCOSE RANDOM 89 mg/dL (74-106); POTASSIUM,K 3.8 mmol/L (3.5-5.1); PROTEIN TOTAL,TP 5.1 g/dL (6.4-8.2); SODIUM,NA 138 mmol/L (136-145)
[2023-12-08 03:08] LABS: ESTIMATED GFR 52 mL/min (>60)
[2023-12-08] MEDS ORDERED: Glucagon,Human Recombinant 1 MG Vial IM PRN (04:40)
[2023-12-08] MEDS ORDERED: 50% Dextrose in Water 50 ML Syringe IVPUSH PRN (04:40)
[2023-12-08] MEDS: Sodium Chloride 0.9% 1,000 ML IV SCH (04:47)
[2023-12-08] MEDS: Insulin Aspart 100 Units/ML 3 ML Pen SUBCUT SCH (07:38)
[2023-12-08] MEDS: Levothyroxine 125 MCG Tab PO SCH (07:44)
[2023-12-08 07:53] LABS: TSH ULTRASENSITIVE 24.45 uIU/mL (0.36-3.74)
[2023-12-08 08:14] LABS: T4 FREE 0.66 ng/dL (0.76-1.46)
[2023-12-08] MEDS: Sertraline 100 MG Tab PO SCH (09:06)
[2023-12-08 09:41] LABS: APPEARANCE,URINE SLT CLOUDY; BILIRUBIN,URINE NEGATIVE (NEGATIVE); COLOR,URINE YELLOW; GLUCOSE,URINE 250 mg/dL (NEGATIVE); KETONES,URINE NEGATIVE (NEGATIVE); LEUKOCYTE ESTERASE,URINE NEGATIVE (NEGATIVE); NITRITE,URINE NEGATIVE (NEGATIVE); OCCULT BLOOD,URINE TRACE-INTACT (NEGATIVE); PROTEIN,URINE 100 mg/dL (NEGATIVE); UROBILINOGEN,URINE 0.2 EU/dL (<2.0)
[2023-12-08 09:51] LABS: AMPHETAMINES SCREEN, URINE NEGATIVE (CUTOFF=500); BARBITURATE SCREEN,URINE NEGATIVE (CUTOFF=200); BENZODIAZEPINES SCREEN,URINE NEGATIVE (CUTOFF=150); BUPRENORPHINE SCREEN,URINE NEGATIVE (CUTOFF=10); METHADONE SCREEN, URINE NEGATIVE (CUTOFF=200); METHAMPHETAMINES SCREEN, URINE NEGATIVE (CUTOFF=500); OXYCODONE SCREEN,URINE NEGATIVE (CUT0FF=100); PCP SCREEN,URINE NEGATIVE (CUTOFF=25); THC SCREEN,URINE 20 NG/ML NEGATIVE (CUTOFF=50)
[2023-12-08 09:53] LABS: BACTERIA,URINE FEW (NEGATIVE); EPITHELIAL CELLS,URINE MANY (NONE-FEW)
[2023-12-08] MEDS: Clopidogrel 75 MG Tab PO SCH (11:12)
[2023-12-08] MEDS: Metoprolol Tartrate 50 MG Tab PO SCH (11:12)
[2023-12-08] MEDS: Ondansetron 4 MG/2 ML SDV IVPUSH PRN (12:16)
[2023-12-08] MEDS: Pantoprazole 40 MG in Sodium Chloride 0.9% 10 ML IVPUSH SCH (12:16)
[2023-12-08] MEDS: Gadobenate Dimeglumine 529 MG/ML 20 ML SDV IVPUSH STA (13:07)
[2023-12-08] MEDS: Insulin Glargine,Hum.Rec.Anlog 100 UNIT/ML 3 ML Pen SUBCUT SCH (21:13)
[2023-12-08] MEDS: atorvaSTATin 40 MG Tab PO SCH (21:15)
[2023-12-08] MEDS: Acetaminophen 325 MG Tab PO PRN (22:10)
[2023-12-09] MEDS ORDERED: Levothyroxine 125 MCG Tab PO SCH (07:30)
[2023-12-09 07:36] LABS: BASOPHILS ABSOLUTE AUTO 0.12 K/uL (0.00-0.20); BASOPHILS PERCENT AUTO 0.8 % (0.0-1.0); EOSINOPHILS ABSOLUTE AUTO 0.31 K/uL (0.00-0.45); EOSINOPHILS PERCENT AUTO 2.1 % (0.0-6.0); HEMATOCRIT 42.6 % (37.0-47.0); HEMOGLOBIN 14.1 g/dL (12.0-16.0); IMMATURE GRAN ABSOLUTE AUTO 0.19 K/uL (0.00-0.05); IMMATURE GRAN PERCENT AUTO 1.3 % (0.0-0.4); LYMPHOCYTES PERCENT AUTO 32.7 % (24.0-44.0); MEAN CORPUSCULAR HEMOGLOBIN 28.5 pg (28.0-32.0); MEAN CORPUSCULAR HGB CONC 33.1 g/dL (32.0-36.0); MEAN CORPUSCULAR VOLUME 86.1 fL (83.0-99.0); MEAN PLATELET VOLUME 9.7 fL (9.4-12.3); MONOCYTES ABSOLUTE AUTO 1.13 K/uL (0.00-0.80); MONOCYTES PERCENT AUTO 7.7 % (0.0-8.0); NEUTROPHILS ABSOLUTE AUTO 8.11 K/uL (1.80-7.70); NEUTROPHILS PERCENT AUTO 55.4 % (41.0-71.0); PLATELET COUNT,PLT 335 K/uL (150-400); RED BLOOD CELL COUNT 4.95 M/uL (4.10-5.30); WHITE BLOOD CELL COUNT,WBC 14.66 K/uL (3.9-11.3)
[2023-12-09 07:58] LABS: A/G RATIO 0.4 (0.9-1.6); ALBUMIN 1.4 g/dL (3.4-5.0); BILIRUBIN TOTAL 0.2 mg/dL (0.2-1.0); CALCIUM 8.1 mg/dL (8.5-10.1); CARBON DIOXIDE,CO2 27.3 mmol/L (21.0-32.0); CREATININE 1.4 mg/dL (0.6-1.0); EST CRCL DRUG DOSING (CG) 40.56 mL/min; POTASSIUM,K 4.6 mmol/L (3.5-5.1); PROTEIN TOTAL,TP 5.2 g/dL (6.4-8.2)
[2023-12-09] MEDS: DULoxetine 60 MG Cap PO SCH (08:00)
[2023-12-09] MEDS: Losartan 50 MG Tab PO SCH (08:03)
[2023-12-10 08:00] LABS: BASOPHILS PERCENT AUTO 0.7 % (0.0-1.0); EOSINOPHILS ABSOLUTE AUTO 0.14 K/uL (0.00-0.45); HEMATOCRIT 41.4 % (37.0-47.0); HEMOGLOBIN 14.1 g/dL (12.0-16.0); IMMATURE GRAN ABSOLUTE AUTO 0.12 K/uL (0.00-0.05); IMMATURE GRAN PERCENT AUTO 0.9 % (0.0-0.4); LYMPHOCYTES ABSOLUTE AUTO 2.65 K/uL (1.00-4.80); LYMPHOCYTES PERCENT AUTO 19.7 % (24.0-44.0); MEAN CORPUSCULAR HGB CONC 34.1 g/dL (32.0-36.0); MEAN PLATELET VOLUME 9.6 fL (9.4-12.3); MONOCYTES ABSOLUTE AUTO 0.92 K/uL (0.00-0.80); MONOCYTES PERCENT AUTO 6.8 % (0.0-8.0); NEUTROPHILS ABSOLUTE AUTO 9.54 K/uL (1.80-7.70); NEUTROPHILS PERCENT AUTO 70.9 % (41.0-71.0); PLATELET COUNT,PLT 327 K/uL (150-400); RED BLOOD CELL COUNT 4.87 M/uL (4.10-5.30); WHITE BLOOD CELL COUNT,WBC 13.47 K/uL (3.9-11.3)
[2023-12-10 08:27] LABS: A/G RATIO 0.4 (0.9-1.6); ALBUMIN 1.3 g/dL (3.4-5.0); BILIRUBIN TOTAL 0.1 mg/dL (0.2-1.0); CARBON DIOXIDE,CO2 24.6 mmol/L (21.0-32.0); CREATININE 1.3 mg/dL (0.6-1.0); EST CRCL DRUG DOSING (CG) 43.68 mL/min; POTASSIUM,K 4.2 mmol/L (3.5-5.1)
[2023-12-10] MEDS: Metoprolol Tartrate 50 MG Tab PO ONE (10:43)
[2023-12-10] MEDS: amLODIPine 5 MG Tab PO SCH (21:21)
[2023-12-11 05:59] LABS: BASOPHILS ABSOLUTE AUTO 0.12 K/uL (0.00-0.20); BASOPHILS PERCENT AUTO 0.8 % (0.0-1.0); EOSINOPHILS ABSOLUTE AUTO 0.23 K/uL (0.00-0.45); EOSINOPHILS PERCENT AUTO 1.5 % (0.0-6.0); HEMATOCRIT 44.3 % (37.0-47.0); HEMOGLOBIN 15.1 g/dL (12.0-16.0); IMMATURE GRAN ABSOLUTE AUTO 0.14 K/uL (0.00-0.05); IMMATURE GRAN PERCENT AUTO 0.9 % (0.0-0.4); LYMPHOCYTES ABSOLUTE AUTO 4.19 K/uL (1.00-4.80); LYMPHOCYTES PERCENT AUTO 27.2 % (24.0-44.0); MEAN CORPUSCULAR HEMOGLOBIN 28.3 pg (28.0-32.0); MEAN CORPUSCULAR HGB CONC 34.1 g/dL (32.0-36.0); MEAN CORPUSCULAR VOLUME 83.1 fL (83.0-99.0); MEAN PLATELET VOLUME 9.5 fL (9.4-12.3); MONOCYTES PERCENT AUTO 8.4 % (0.0-8.0); NEUTROPHILS ABSOLUTE AUTO 9.44 K/uL (1.80-7.70); NEUTROPHILS PERCENT AUTO 61.2 % (41.0-71.0); PLATELET COUNT,PLT 379 K/uL (150-400); RED BLOOD CELL COUNT 5.33 M/uL (4.10-5.30); WHITE BLOOD CELL COUNT,WBC 15.42 K/uL (3.9-11.3)
[2023-12-11 06:19] LABS: CALCIUM 8.2 mg/dL (8.5-10.1); CREATININE 1.3 mg/dL (0.6-1.0); EST CRCL DRUG DOSING (CG) 43.68 mL/min; POTASSIUM,K 4.3 mmol/L (3.5-5.1)
[2023-12-11] MEDS: Metoprolol Tartrate 50 MG Tab PO SCH (09:13)
[2023-12-11] MEDS: Insulin Glargine,Hum.Rec.Anlog 100 UNIT/ML 3 ML Pen SUBCUT SCH (09:16)
[2023-12-11] MEDS: amLODIPine 5 MG Tab PO SCH (19:50)
[2023-12-12] MEDS: Hydrochlorothiazide 25 MG Tab PO ONE (01:36)
[2023-12-12 06:04] LABS: BASOPHILS ABSOLUTE AUTO 0.14 K/uL (0.00-0.20); BASOPHILS PERCENT AUTO 1.1 % (0.0-1.0); EOSINOPHILS ABSOLUTE AUTO 0.31 K/uL (0.00-0.45); EOSINOPHILS PERCENT AUTO 2.4 % (0.0-6.0); HEMATOCRIT 43.2 % (37.0-47.0); HEMOGLOBIN 14.6 g/dL (12.0-16.0); IMMATURE GRAN ABSOLUTE AUTO 0.11 K/uL (0.00-0.05); IMMATURE GRAN PERCENT AUTO 0.9 % (0.0-0.4); LYMPHOCYTES ABSOLUTE AUTO 4.06 K/uL (1.00-4.80); LYMPHOCYTES PERCENT AUTO 31.6 % (24.0-44.0); MEAN CORPUSCULAR HEMOGLOBIN 28.4 pg (28.0-32.0); MEAN CORPUSCULAR HGB CONC 33.8 g/dL (32.0-36.0); MEAN PLATELET VOLUME 9.6 fL (9.4-12.3); MONOCYTES ABSOLUTE AUTO 1.25 K/uL (0.00-0.80); MONOCYTES PERCENT AUTO 9.7 % (0.0-8.0); NEUTROPHILS ABSOLUTE AUTO 6.97 K/uL (1.80-7.70); NEUTROPHILS PERCENT AUTO 54.3 % (41.0-71.0); PLATELET COUNT,PLT 351 K/uL (150-400); RED BLOOD CELL COUNT 5.14 M/uL (4.10-5.30); WHITE BLOOD CELL COUNT,WBC 12.84 K/uL (3.9-11.3)
[2023-12-12 06:26] LABS: CALCIUM 8.3 mg/dL (8.5-10.1); CARBON DIOXIDE,CO2 27.2 mmol/L (21.0-32.0); CREATININE 1.2 mg/dL (0.6-1.0); EST CRCL DRUG DOSING (CG) 47.32 mL/min; POTASSIUM,K 3.8 mmol/L (3.5-5.1)
[2023-12-12 12:23] VITALS: BP 175/98; PULSE 75
== END 2023-12-12 14:50 | disposition home or self-care (01) | DRG 45 ==
LOC: MW.ED 01:28 → MW.MS 03:15 → OBSVTOIN 10:16 → MW.MS 13:19
PROVIDERS: ADMIT Internal Medicine; ATTEND Internal Medicine
DX: I63.9 Cerebral infarction, unspecified (principal); G93.6 Cerebral edema; E11.21 Type 2 diabetes mellitus with diabetic nephropathy; E11.65 Type 2 diabetes mellitus with hyperglycemia; E66.9 Obesity, unspecified; I10 Essential (primary) hypertension; E78.00 Pure hypercholesterolemia, unspecified; K21.9 Gastro-esophageal reflux disease without esophagitis; F41.9 Anxiety disorder, unspecified; F32.A Depression, unspecified; D72.829 Elevated white blood cell count, unspecified; F17.210 Nicotine dependence, cigarettes, uncomplicated; R23.3 Spontaneous ecchymoses; Z88.8 Allergy status to other drugs, medicaments and biological substances; Z79.4 Long term (current) use of insulin; Z79.899 Other long term (current) drug therapy; Z68.41 Body mass index [BMI] 40.0-44.9, adult; I25.2 Old myocardial infarction; Z95.5 Presence of coronary angioplasty implant and graft; Z98.890 Other specified postprocedural states; Z90.89 Acquired absence of other organs; Z87.440 Personal history of urinary (tract) infections
CPT/HCPCS: 0240U; 36415; 70450; 70450-26; 70544; 70544-26; 70547; 70547-26; 70553; 70553-26; 80048; 80053; 80061; 80305-QW; 80307; 81001; 82947; 83036; 83735; 84439; 84443; 84484; 85025; 87324; 93010; 93306; 96361; 96374; 97110-GP; 97162-GP; 97165-GO; 97530-GP; 99284; 99285-25; A9270-GY; A9577; C9113; G0378; J1815-GY; J1921; J2405; J3490; J7030

== ENCOUNTER 2023-12-13 14:06 | Emergency (ER) | payer BC ==
[2023-12-13] MEDS: Sodium Chloride 0.9% 1,000 ML IV ONE (15:20)
[2023-12-13] MEDS: Sodium Chloride 0.9% 10 ML Syringe FLUSH PRN (15:20)
[2023-12-13] MEDS: Ondansetron 4 MG/2 ML SDV IVPUSH ONE (15:20)
[2023-12-13] MEDS: Sodium Chloride 0.9% 2.5 ML Syringe FLUSH PRN (15:21)
[2023-12-13 15:23] LABS: BASOPHILS ABSOLUTE AUTO 0.12 K/uL (0.00-0.20); BASOPHILS PERCENT AUTO 0.8 % (0.0-1.0); EOSINOPHILS ABSOLUTE AUTO 0.11 K/uL (0.00-0.45); EOSINOPHILS PERCENT AUTO 0.7 % (0.0-6.0); HEMATOCRIT 47.9 % (37.0-47.0); HEMOGLOBIN 16.1 g/dL (12.0-16.0); IMMATURE GRAN ABSOLUTE AUTO 0.13 K/uL (0.00-0.05); IMMATURE GRAN PERCENT AUTO 0.9 % (0.0-0.4); LYMPHOCYTES ABSOLUTE AUTO 2.98 K/uL (1.00-4.80); LYMPHOCYTES PERCENT AUTO 19.8 % (24.0-44.0); MEAN CORPUSCULAR HEMOGLOBIN 28.4 pg (28.0-32.0); MEAN CORPUSCULAR HGB CONC 33.6 g/dL (32.0-36.0); MEAN CORPUSCULAR VOLUME 84.5 fL (83.0-99.0); MEAN PLATELET VOLUME 9.8 fL (9.4-12.3); MONOCYTES ABSOLUTE AUTO 1.07 K/uL (0.00-0.80); MONOCYTES PERCENT AUTO 7.1 % (0.0-8.0); NEUTROPHILS ABSOLUTE AUTO 10.63 K/uL (1.80-7.70); NEUTROPHILS PERCENT AUTO 70.7 % (41.0-71.0); PLATELET COUNT,PLT 414 K/uL (150-400); RED BLOOD CELL COUNT 5.67 M/uL (4.10-5.30); WHITE BLOOD CELL COUNT,WBC 15.04 K/uL (3.9-11.3)
[2023-12-13] MEDS: Metoprolol Tartrate 50 MG Tab PO ONE (15:30)
[2023-12-13] MEDS: Hydrochlorothiazide 25 MG Tab PO ONE (15:31)
[2023-12-13 15:52] LABS: ALBUMIN 1.6 g/dL (3.4-5.0); BILIRUBIN TOTAL 0.4 mg/dL (0.2-1.0); CARBON DIOXIDE,CO2 25.7 mmol/L (21.0-32.0); CREATININE 1.3 mg/dL (0.6-1.0); EST CRCL DRUG DOSING (CG) 43.68 mL/min; POTASSIUM,K 4.3 mmol/L (3.5-5.1); PROTEIN TOTAL,TP 6.2 g/dL (6.4-8.2)
[2023-12-13 15:56] LABS: A/G RATIO 0.4 (0.9-1.6)
[2023-12-13 16:10] LABS: CALCIUM 8.8 mg/dL (8.5-10.1)
[2023-12-13 17:19] LABS: APPEARANCE,URINE CLEAR; BILIRUBIN,URINE NEGATIVE (NEGATIVE); COLOR,URINE YELLOW; GLUCOSE,URINE 250 mg/dL (NEGATIVE); KETONES,URINE 15 mg/dL (NEGATIVE); LEUKOCYTE ESTERASE,URINE NEGATIVE (NEGATIVE); NITRITE,URINE NEGATIVE (NEGATIVE); OCCULT BLOOD,URINE SMALL (NEGATIVE); PROTEIN,URINE >=300 mg/dL (NEGATIVE); UROBILINOGEN,URINE 0.2 EU/dL (<2.0)
[2023-12-13 17:34] LABS: BACTERIA,URINE FEW (NEGATIVE); EPITHELIAL CELLS,URINE MODERATE (NONE-FEW); RBC,URINE 0-2 (0-2/HPF)
[2023-12-13 18:06] VITALS: BP 141/83; PULSE 74
== END 2023-12-13 18:05 | disposition home or self-care (01) ==
LOC: MW.ED 14:06
DX: K29.70 Gastritis, unspecified, without bleeding (principal); E11.21 Type 2 diabetes mellitus with diabetic nephropathy; E78.00 Pure hypercholesterolemia, unspecified; I10 Essential (primary) hypertension; I25.2 Old myocardial infarction; Z79.4 Long term (current) use of insulin; Z75.8 Other problems related to medical facilities and other health care; Z95.5 Presence of coronary angioplasty implant and graft; Z79.899 Other long term (current) drug therapy; Z86.16 Personal history of COVID-19; Z88.6 Allergy status to analgesic agent; Z88.8 Allergy status to other drugs, medicaments and biological substances
CPT/HCPCS: 36415; 71045; 80053; 81001; 83690; 85025; 93005; 93246; 96361; 96374; 99284; A9270; J2405; J3490; J7030; 93010

== ENCOUNTER 2024-01-08 15:40 | Emergency (ER) | payer BC ==
[2024-01-08 16:02] VITALS: BP 164/107; PULSE 99
== END 2024-01-08 16:11 | disposition home or self-care (01) ==
LOC: MW.ED 15:40
DX: S00.412A Abrasion of left ear, initial encounter (principal); I10 Essential (primary) hypertension; I25.2 Old myocardial infarction; E78.00 Pure hypercholesterolemia, unspecified; E11.9 Type 2 diabetes mellitus without complications; Z75.8 Other problems related to medical facilities and other health care; Z79.4 Long term (current) use of insulin; Z79.899 Other long term (current) drug therapy; Z88.8 Allergy status to other drugs, medicaments and biological substances; X58.XXXA Exposure to other specified factors, initial encounter
CPT/HCPCS: 99282

== ENCOUNTER 2024-05-29 22:46 | Emergency (ER) | payer BC ==
[2024-05-29 23:15] LABS: BASOPHILS ABSOLUTE AUTO 0.15 K/uL (0.00-0.20); BASOPHILS PERCENT AUTO 0.9 % (0.0-1.0); EOSINOPHILS ABSOLUTE AUTO 0.44 K/uL (0.00-0.45); EOSINOPHILS PERCENT AUTO 2.8 % (0.0-6.0); HEMATOCRIT 41.3 % (37.0-47.0); HEMOGLOBIN 13.2 g/dL (12.0-16.0); IMMATURE GRAN PERCENT AUTO 1.3 % (0.0-0.4); LYMPHOCYTES ABSOLUTE AUTO 3.93 K/uL (1.00-4.80); LYMPHOCYTES PERCENT AUTO 24.7 % (24.0-44.0); MEAN CORPUSCULAR HEMOGLOBIN 26.3 pg (28.0-32.0); MEAN CORPUSCULAR VOLUME 82.4 fL (83.0-99.0); MONOCYTES ABSOLUTE AUTO 0.89 K/uL (0.00-0.80); MONOCYTES PERCENT AUTO 5.6 % (0.0-8.0); NEUTROPHILS ABSOLUTE AUTO 10.27 K/uL (1.80-7.70); NEUTROPHILS PERCENT AUTO 64.7 % (41.0-71.0); PLATELET COUNT,PLT 365 K/uL (150-400); RED BLOOD CELL COUNT 5.01 M/uL (4.10-5.30); WHITE BLOOD CELL COUNT,WBC 15.88 K/uL (3.9-11.3)
[2024-05-29] MEDS: Ondansetron 4 MG Tab.DIS PO ONE (23:15)
[2024-05-29 23:28] LABS: INR < 0.93 (0.86-1.11)
[2024-05-29 23:47] LABS: A/G RATIO 0.5 (0.9-1.6); BILIRUBIN TOTAL 0.2 mg/dL (0.2-1.0); CALCIUM 9.3 mg/dL (8.5-10.1); CARBON DIOXIDE,CO2 25.3 mmol/L (21.0-32.0); CREATININE 2.2 mg/dL (0.6-1.0); EST CRCL DRUG DOSING (CG) 25.54 mL/min; MAGNESIUM 2.2 mg/dL (1.8-2.4); PROTEIN TOTAL,TP 6.3 g/dL (6.4-8.2)
[2024-05-29 23:52] LABS: POTASSIUM,K 3.5 mmol/L (3.5-5.1)
[2024-05-29] MEDS ORDERED: 50% Dextrose in Water 50 ML Syringe IVPUSH PRN (23:59)
[2024-05-29] MEDS ORDERED: Glucagon,Human Recombinant 1 MG Vial IM PRN (23:59)
[2024-05-30 00:15] LABS: APPEARANCE,URINE SLT CLOUDY; BILIRUBIN,URINE NEGATIVE (NEGATIVE); COLOR,URINE YELLOW; GLUCOSE,URINE >=1000 mg/dL (NEGATIVE); KETONES,URINE NEGATIVE (NEGATIVE); LEUKOCYTE ESTERASE,URINE NEGATIVE (NEGATIVE); NITRITE,URINE NEGATIVE (NEGATIVE); OCCULT BLOOD,URINE SMALL (NEGATIVE); PROTEIN,URINE 100 mg/dL (NEGATIVE); UROBILINOGEN,URINE 0.2 EU/dL (<2.0)
[2024-05-30] MEDS: Insulin Regular, Human 100 Units/ML 10 ML Vial IVPUSH ONE (00:18)
[2024-05-30] MEDS: Labetalol 100 MG/20 ML MDV IVPUSH ONE (00:18)
[2024-05-30 00:41] LABS: HEMOGLOBIN A1C 9.1 %
[2024-05-30 00:58] LABS: BACTERIA,URINE 4+ (NEGATIVE); EPITHELIAL CELLS,URINE FEW (NONE-FEW); MUCUS,URINE LIGHT (NONE-MOD)
[2024-05-30] MEDS: Sodium Chloride 0.9% 1,000 ML IV ONE (01:18)
[2024-05-30 01:49] LABS: CORONAVIRUS COVID-19 NAA NEGATIVE (NEGATIVE); INFLUENZA A NAA NEGATIVE (NEGATIVE); INFLUENZA B NAA NEGATIVE (NEGATIVE)
[2024-05-30] MEDS: cefTRIAXone 2 GM in Sodium Chloride 0.9% 50 ML IV ONE (02:53)
[2024-05-30 03:41] VITALS: BP 157/84; PULSE 87
== END 2024-05-30 03:41 | disposition home or self-care (01) ==
LOC: MW.ED 22:46
DX: K14.8 Other diseases of tongue (principal); N30.00 Acute cystitis without hematuria; R11.0 Nausea; E11.65 Type 2 diabetes mellitus with hyperglycemia; I13.0 Hypertensive heart and chronic kidney disease with heart failure and stage 1 through stage 4 chronic kidney disease, or unspecified chronic kidney disease; I50.9 Heart failure, unspecified; N18.9 Chronic kidney disease, unspecified; Z91.148 Patient's other noncompliance with medication regimen for other reason; E78.00 Pure hypercholesterolemia, unspecified; E11.9 Type 2 diabetes mellitus without complications; Z88.8 Allergy status to other drugs, medicaments and biological substances; Z79.4 Long term (current) use of insulin; Z79.890 Hormone replacement therapy; Z79.899 Other long term (current) drug therapy; Z75.8 Other problems related to medical facilities and other health care
CPT/HCPCS: 0240U; 36415; 71045; 74176; 80053; 81001; 82947; 83036; 83605; 83690; 83735; 83880; 85025; 85610; 93005; 96365; 96375; 99284; A9270; J0696; J1815; J1921; J3490

== ENCOUNTER 2024-06-29 16:29 | Emergency (ER) | payer BC ==
[2024-06-29 19:14] LABS: BASOPHILS ABSOLUTE AUTO 0.15 K/uL (0.00-0.20); EOSINOPHILS ABSOLUTE AUTO 0.23 K/uL (0.00-0.45); EOSINOPHILS PERCENT AUTO 1.5 % (0.0-6.0); HEMATOCRIT 45.2 % (37.0-47.0); HEMOGLOBIN 14.5 g/dL (12.0-16.0); IMMATURE GRAN ABSOLUTE AUTO 0.11 K/uL (0.00-0.05); IMMATURE GRAN PERCENT AUTO 0.7 % (0.0-0.4); LYMPHOCYTES ABSOLUTE AUTO 3.71 K/uL (1.00-4.80); MEAN CORPUSCULAR HEMOGLOBIN 26.8 pg (28.0-32.0); MEAN CORPUSCULAR HGB CONC 32.1 g/dL (32.0-36.0); MEAN CORPUSCULAR VOLUME 83.4 fL (83.0-99.0); MEAN PLATELET VOLUME 9.8 fL (9.4-12.3); MONOCYTES PERCENT AUTO 6.5 % (0.0-8.0); NEUTROPHILS ABSOLUTE AUTO 10.25 K/uL (1.80-7.70); NEUTROPHILS PERCENT AUTO 66.3 % (41.0-71.0); PLATELET COUNT,PLT 318 K/uL (150-400); RED BLOOD CELL COUNT 5.42 M/uL (4.10-5.30); WHITE BLOOD CELL COUNT,WBC 15.45 K/uL (3.9-11.3)
[2024-06-29 19:37] LABS: A/G RATIO 0.4 (0.9-1.6); ALBUMIN 1.8 g/dL (3.4-5.0); BILIRUBIN TOTAL 0.2 mg/dL (0.2-1.0); CALCIUM 7.9 mg/dL (8.5-10.1); CARBON DIOXIDE,CO2 28.9 mmol/L (21.0-32.0); CREATININE 2.4 mg/dL (0.6-1.0); EST CRCL DRUG DOSING (CG) 23.41 mL/min; POTASSIUM,K 3.3 mmol/L (3.5-5.1); PROTEIN TOTAL,TP 6.4 g/dL (6.4-8.2)
[2024-06-29] MEDS: Cephalexin 500 MG Cap PO ONE (20:19)
[2024-06-29] MEDS: traMADol 50 MG Tab PO ONE (20:19)
[2024-06-29 20:36] VITALS: BP 152/72; PULSE 82
== END 2024-06-29 20:36 | disposition home or self-care (01) ==
LOC: MW.ED 16:29
DX: S92.425A Nondisplaced fracture of distal phalanx of left great toe, initial encounter for closed fracture (principal); I10 Essential (primary) hypertension; I25.2 Old myocardial infarction; E78.00 Pure hypercholesterolemia, unspecified; K21.9 Gastro-esophageal reflux disease without esophagitis; E11.9 Type 2 diabetes mellitus without complications; Z75.8 Other problems related to medical facilities and other health care; Z88.8 Allergy status to other drugs, medicaments and biological substances; Z79.4 Long term (current) use of insulin; Z79.890 Hormone replacement therapy; Z79.899 Other long term (current) drug therapy; W22.8XXA Striking against or struck by other objects, initial encounter
CPT/HCPCS: 36415; 73620; 80053; 85025; 99283; A9270; 99284

== ENCOUNTER 2024-07-04 10:36 | Emergency (ER) | payer BC ==
[2024-07-04] MEDS ORDERED: Sodium Chloride 0.9% 2.5 ML Syringe FLUSH PRN (11:07)
[2024-07-04] MEDS ORDERED: Sodium Chloride 0.9% 10 ML Syringe FLUSH PRN (11:07)
[2024-07-04] MEDS: Labetalol 100 MG/20 ML MDV IVPUSH ONE (11:27)
[2024-07-04 11:44] LABS: BASOPHILS ABSOLUTE AUTO 0.11 K/uL (0.00-0.20); BASOPHILS PERCENT AUTO 0.7 % (0.0-1.0); EOSINOPHILS ABSOLUTE AUTO 0.35 K/uL (0.00-0.45); EOSINOPHILS PERCENT AUTO 2.3 % (0.0-6.0); HEMATOCRIT 41.6 % (37.0-47.0); HEMOGLOBIN 13.4 g/dL (12.0-16.0); IMMATURE GRAN ABSOLUTE AUTO 0.24 K/uL (0.00-0.05); IMMATURE GRAN PERCENT AUTO 1.6 % (0.0-0.4); LYMPHOCYTES PERCENT AUTO 20.2 % (24.0-44.0); MEAN CORPUSCULAR HEMOGLOBIN 27.3 pg (28.0-32.0); MEAN CORPUSCULAR HGB CONC 32.2 g/dL (32.0-36.0); MEAN CORPUSCULAR VOLUME 84.9 fL (83.0-99.0); MEAN PLATELET VOLUME 9.5 fL (9.4-12.3); MONOCYTES ABSOLUTE AUTO 1.01 K/uL (0.00-0.80); MONOCYTES PERCENT AUTO 6.6 % (0.0-8.0); NEUTROPHILS PERCENT AUTO 68.6 % (41.0-71.0); PLATELET COUNT,PLT 337 K/uL (150-400); WHITE BLOOD CELL COUNT,WBC 15.31 K/uL (3.9-11.3)
[2024-07-04 12:11] LABS: ALBUMIN 1.6 g/dL (3.4-5.0); BILIRUBIN TOTAL 0.1 mg/dL (0.2-1.0); CALCIUM 8.5 mg/dL (8.5-10.1); CARBON DIOXIDE,CO2 29.2 mmol/L (21.0-32.0); CREATININE 1.9 mg/dL (0.6-1.0); EST CRCL DRUG DOSING (CG) 29.57 mL/min; POTASSIUM,K 4.5 mmol/L (3.5-5.1); PROTEIN TOTAL,TP 6.2 g/dL (6.4-8.2)
[2024-07-04 12:15] LABS: A/G RATIO 0.4 (0.9-1.6)
[2024-07-04 13:33] VITALS: BP 191/95; PULSE 84
== END 2024-07-04 13:37 | disposition home or self-care (01) ==
LOC: MW.ED 10:36
DX: I10 Essential (primary) hypertension (principal); N17.9 Acute kidney failure, unspecified; D72.820 Lymphocytosis (symptomatic); E78.00 Pure hypercholesterolemia, unspecified; I25.2 Old myocardial infarction; Z95.5 Presence of coronary angioplasty implant and graft; E11.21 Type 2 diabetes mellitus with diabetic nephropathy; Z79.4 Long term (current) use of insulin; Z79.899 Other long term (current) drug therapy; Z88.9 Allergy status to unspecified drugs, medicaments and biological substances; Z88.6 Allergy status to analgesic agent; Z75.8 Other problems related to medical facilities and other health care
CPT/HCPCS: 36415; 80053; 85025; 96374; 99283-25; 99284; J1920

== ENCOUNTER 2024-07-11 18:39 | Emergency (ER) | payer BC ==
[2024-07-11] MEDS ORDERED: Sodium Chloride 0.9% 10 ML Syringe FLUSH PRN (19:21)
[2024-07-11 20:20] LABS: BASOPHILS ABSOLUTE AUTO 0.17 K/uL (0.00-0.20); EOSINOPHILS ABSOLUTE AUTO 0.65 K/uL (0.00-0.45); EOSINOPHILS PERCENT AUTO 3.7 % (0.0-6.0); HEMATOCRIT 40.5 % (37.0-47.0); IMMATURE GRAN ABSOLUTE AUTO 0.23 K/uL (0.00-0.05); IMMATURE GRAN PERCENT AUTO 1.3 % (0.0-0.4); LYMPHOCYTES ABSOLUTE AUTO 3.72 K/uL (1.00-4.80); LYMPHOCYTES PERCENT AUTO 21.2 % (24.0-44.0); MEAN CORPUSCULAR HEMOGLOBIN 27.1 pg (28.0-32.0); MEAN CORPUSCULAR HGB CONC 32.1 g/dL (32.0-36.0); MEAN CORPUSCULAR VOLUME 84.4 fL (83.0-99.0); MEAN PLATELET VOLUME 9.5 fL (9.4-12.3); MONOCYTES ABSOLUTE AUTO 1.12 K/uL (0.00-0.80); MONOCYTES PERCENT AUTO 6.4 % (0.0-8.0); NEUTROPHILS ABSOLUTE AUTO 11.62 K/uL (1.80-7.70); NEUTROPHILS PERCENT AUTO 66.4 % (41.0-71.0); PLATELET COUNT,PLT 431 K/uL (150-400); WHITE BLOOD CELL COUNT,WBC 17.51 K/uL (3.9-11.3)
[2024-07-11 20:40] LABS: HEMOGLOBIN A1C 8.1 %
[2024-07-11 20:50] LABS: A/G RATIO 0.4 (0.9-1.6); ALANINE AMINOTRANSFERASE,ALT 14 IU/L (14-63); ALBUMIN 1.8 g/dL (3.4-5.0); ALKALINE PHOSPHATASE 132 U/L (46-116); ASPARTATE AMNIOTRANSFERASE,AST 13 IU/L (15-37); BILIRUBIN TOTAL 0.1 mg/dL (0.2-1.0); BLOOD UREA NITROGEN,BUN 21 mg/dL (7.0-18.0); C-REACTIVE PROTEIN 3.31 mg/dL (<0.3); CARBON DIOXIDE,CO2 25.9 mmol/L (21.0-32.0); CHLORIDE,CL 106 mmol/L (98-107); CREATININE 2.1 mg/dL (0.6-1.0); GLUCOSE RANDOM 231 mg/dL (74-106); MAGNESIUM 3.1 mg/dL (1.8-2.4); POTASSIUM,K 3.9 mmol/L (3.5-5.1); PRO B-TYPE NATRIUR PEPT,BNPPRO 15472 pg/mL (0-125); PROTEIN TOTAL,TP 6.4 g/dL (6.4-8.2); SODIUM,NA 138 mmol/L (136-145)
[2024-07-11 20:51] LABS: ESTIMATED GFR 29 mL/min (>60)
[2024-07-11] MEDS: Furosemide 40 MG/4 ML VIAL IVPUSH ONE (21:10)
[2024-07-11] MEDS: Heparin Sodium 5,000 Units/ML Vial IVPUSH ONE (21:37)
[2024-07-11] MEDS: Piperacillin/Tazobactam 4.5 GM in Sodium Chloride 0.9% 100 ML IV ONE (21:42)
[2024-07-11] MEDS ORDERED: VANCOmycin 2 GM/400 ML 2 GM in Premix Bag 1 BAG IV ONE (22:00)
[2024-07-11] MEDS: Heparin Sodium/0.45% NaCl 25,000 UNITS/250 ML BAG IV SCH (22:20)
[2024-07-12 00:02] VITALS: BP 168/86; PULSE 83
== END 2024-07-11 23:35 ==
LOC: MW.ED 18:39
DX: E11.52 Type 2 diabetes mellitus with diabetic peripheral angiopathy with gangrene (principal); I96 Gangrene, not elsewhere classified; I13.0 Hypertensive heart and chronic kidney disease with heart failure and stage 1 through stage 4 chronic kidney disease, or unspecified chronic kidney disease; I50.9 Heart failure, unspecified; N18.9 Chronic kidney disease, unspecified; E78.00 Pure hypercholesterolemia, unspecified; E11.40 Type 2 diabetes mellitus with diabetic neuropathy, unspecified; Z79.899 Other long term (current) drug therapy; Z88.6 Allergy status to analgesic agent; Z88.8 Allergy status to other drugs, medicaments and biological substances
CPT/HCPCS: 36415; 73620; 80053; 83036; 83605; 83735; 83880; 84703; 85025; 85652; 85730; 86140; 87040; 93926; 96365; 96366; 96367; 96375; 96376; 99285; J1644; J1940; J2543; J3490

== ENCOUNTER 2024-12-08 18:24 | Inpatient (IN) | payer MEDICAID ==
[2024-12-08 19:56] LABS: BASOPHILS ABSOLUTE AUTO 0.11 K/uL (0.00-0.20); BASOPHILS PERCENT AUTO 0.8 % (0.0-1.0); EOSINOPHILS ABSOLUTE AUTO 0.94 K/uL (0.00-0.45); EOSINOPHILS PERCENT AUTO 7.2 % (0.0-6.0); HEMATOCRIT 37.4 % (37.0-47.0); HEMOGLOBIN 11.7 g/dL (12.0-16.0); IMMATURE GRAN ABSOLUTE AUTO 0.23 K/uL (0.00-0.05); IMMATURE GRAN PERCENT AUTO 1.8 % (0.0-0.4); LYMPHOCYTES ABSOLUTE AUTO 1.98 K/uL (1.00-4.80); LYMPHOCYTES PERCENT AUTO 15.1 % (24.0-44.0); MEAN CORPUSCULAR HEMOGLOBIN 26.5 pg (28.0-32.0); MEAN CORPUSCULAR HGB CONC 31.3 g/dL (32.0-36.0); MEAN CORPUSCULAR VOLUME 84.8 fL (83.0-99.0); MEAN PLATELET VOLUME 9.2 fL (9.4-12.3); MONOCYTES ABSOLUTE AUTO 0.85 K/uL (0.00-0.80); MONOCYTES PERCENT AUTO 6.5 % (0.0-8.0); NEUTROPHILS ABSOLUTE AUTO 8.96 K/uL (1.80-7.70); NEUTROPHILS PERCENT AUTO 68.6 % (41.0-71.0); PLATELET COUNT,PLT 344 K/uL (150-400); RED BLOOD CELL COUNT 4.41 M/uL (4.10-5.30); WHITE BLOOD CELL COUNT,WBC 13.07 K/uL (3.9-11.3)
[2024-12-08 20:31] LABS: A/G RATIO 0.8 (0.9-1.6); ALBUMIN 2.7 g/dL (3.4-5.0); BILIRUBIN TOTAL 0.4 mg/dL (0.2-1.0); CARBON DIOXIDE,CO2 25.5 mmol/L (21.0-32.0); CREATININE 2.8 mg/dL (0.6-1.0); EST CRCL DRUG DOSING (CG) 20.07 mL/min; POTASSIUM,K 4.2 mmol/L (3.5-5.1); PROTEIN TOTAL,TP 6.2 g/dL (6.4-8.2)
[2024-12-08 20:36] LABS: MAGNESIUM 2.4 mg/dL (1.8-2.4)
[2024-12-08] MEDS ORDERED: Sodium Chloride 0.9% 2.5 ML Syringe FLUSH PRN ×2 (21:08→22:01)
[2024-12-08] MEDS ORDERED: Sodium Chloride 0.9% 10 ML Syringe FLUSH PRN ×2 (21:08→22:01)
[2024-12-08] MEDS: Furosemide 40 MG/4 ML VIAL IVPUSH STA ×2 (22:41→23:59)
[2024-12-08 23:25] LABS: BILIRUBIN,URINE NEGATIVE (NEGATIVE); COLOR,URINE RED; GLUCOSE,URINE >=1000 mg/dL (NEGATIVE); KETONES,URINE NEGATIVE (NEGATIVE); LEUKOCYTE ESTERASE,URINE NEGATIVE (NEGATIVE); NITRITE,URINE NEGATIVE (NEGATIVE); OCCULT BLOOD,URINE LARGE (NEGATIVE); PROTEIN,URINE >=300 mg/dL (NEGATIVE); UROBILINOGEN,URINE 0.2 EU/dL (<2.0)
[2024-12-08 23:29] LABS: APPEARANCE,URINE CLOUDY; RBC,URINE TOO NUMEROUS TO CT (0-2/HPF)
[2024-12-08 23:30] LABS: BACTERIA,URINE RARE (NEGATIVE); EPITHELIAL CELLS,URINE RARE (NONE-FEW); WBC,URINE 0-2 (0-5/HPF)
[2024-12-08] MEDS ORDERED: 50% Dextrose in Water 50 ML Syringe IVPUSH PRN (23:58)
[2024-12-08] MEDS ORDERED: Glucagon,Human Recombinant 1 MG Vial IM PRN (23:58)
[2024-12-09 06:14] LABS: BASOPHILS ABSOLUTE AUTO 0.11 K/uL (0.00-0.20); BASOPHILS PERCENT AUTO 0.8 % (0.0-1.0); EOSINOPHILS ABSOLUTE AUTO 0.98 K/uL (0.00-0.45); EOSINOPHILS PERCENT AUTO 7.3 % (0.0-6.0); HEMATOCRIT 36.5 % (37.0-47.0); HEMOGLOBIN 11.4 g/dL (12.0-16.0); IMMATURE GRAN ABSOLUTE AUTO 0.13 K/uL (0.00-0.05); LYMPHOCYTES ABSOLUTE AUTO 2.56 K/uL (1.00-4.80); LYMPHOCYTES PERCENT AUTO 19.1 % (24.0-44.0); MEAN CORPUSCULAR HEMOGLOBIN 26.6 pg (28.0-32.0); MEAN CORPUSCULAR HGB CONC 31.2 g/dL (32.0-36.0); MEAN CORPUSCULAR VOLUME 85.3 fL (83.0-99.0); MEAN PLATELET VOLUME 9.2 fL (9.4-12.3); MONOCYTES ABSOLUTE AUTO 1.01 K/uL (0.00-0.80); MONOCYTES PERCENT AUTO 7.6 % (0.0-8.0); NEUTROPHILS ABSOLUTE AUTO 8.58 K/uL (1.80-7.70); NEUTROPHILS PERCENT AUTO 64.2 % (41.0-71.0); PLATELET COUNT,PLT 309 K/uL (150-400); RED BLOOD CELL COUNT 4.28 M/uL (4.10-5.30); WHITE BLOOD CELL COUNT,WBC 13.37 K/uL (3.9-11.3)
[2024-12-09 06:35] LABS: CALCIUM 8.2 mg/dL (8.5-10.1); CARBON DIOXIDE,CO2 26.8 mmol/L (21.0-32.0); CREATININE 2.9 mg/dL (0.6-1.0); EST CRCL DRUG DOSING (CG) 19.37 mL/min; POTASSIUM,K 4.4 mmol/L (3.5-5.1)
[2024-12-09] MEDS: Insulin Aspart 100 Units/ML 3 ML Pen SUBCUT SCH (08:39)
[2024-12-09] MEDS ORDERED: Glucagon,Human Recombinant 1 MG Vial IM PRN (10:34)
[2024-12-09] MEDS: Furosemide 100 MG/10 ML SDV IVPUSH SCH (11:15)
[2024-12-09] MEDS: Insulin Glargine,Human Rec. Analog 100 Units/ML 3 ML Pen SUBCUT SCH (11:17)
[2024-12-09] MEDS: Levothyroxine 125 MCG Tab PO SCH (13:18)
[2024-12-09] MEDS: amLODIPine 5 MG Tab PO SCH (13:27)
[2024-12-09] MEDS: Losartan 50 MG Tab PO SCH (13:27)
[2024-12-09] MEDS: Metoprolol Tartrate 50 MG Tab PO SCH (13:28)
[2024-12-09] MEDS: Clopidogrel 75 MG Tab PO SCH (13:28)
[2024-12-09] MEDS: atorvaSTATin 40 MG Tab PO SCH (20:54)
[2024-12-09] MEDS ORDERED: traZODone 50 MG Tab PO PRN (21:00)
[2024-12-10 06:36] LABS: BASOPHILS PERCENT AUTO 0.8 % (0.0-1.0); EOSINOPHILS ABSOLUTE AUTO 0.84 K/uL (0.00-0.45); EOSINOPHILS PERCENT AUTO 6.5 % (0.0-6.0); HEMATOCRIT 34.9 % (37.0-47.0); HEMOGLOBIN 11.1 g/dL (12.0-16.0); IMMATURE GRAN PERCENT AUTO 0.8 % (0.0-0.4); LYMPHOCYTES ABSOLUTE AUTO 2.64 K/uL (1.00-4.80); LYMPHOCYTES PERCENT AUTO 20.3 % (24.0-44.0); MEAN CORPUSCULAR HGB CONC 31.8 g/dL (32.0-36.0); MEAN CORPUSCULAR VOLUME 84.9 fL (83.0-99.0); MEAN PLATELET VOLUME 9.6 fL (9.4-12.3); MONOCYTES ABSOLUTE AUTO 0.91 K/uL (0.00-0.80); NEUTROPHILS ABSOLUTE AUTO 8.42 K/uL (1.80-7.70); NEUTROPHILS PERCENT AUTO 64.6 % (41.0-71.0); PLATELET COUNT,PLT 329 K/uL (150-400); RED BLOOD CELL COUNT 4.11 M/uL (4.10-5.30); WHITE BLOOD CELL COUNT,WBC 13.01 K/uL (3.9-11.3)
[2024-12-10 06:58] LABS: CALCIUM 8.5 mg/dL (8.5-10.1); CARBON DIOXIDE,CO2 26.3 mmol/L (21.0-32.0); EST CRCL DRUG DOSING (CG) 18.73 mL/min; POTASSIUM,K 4.4 mmol/L (3.5-5.1)
[2024-12-10] MEDS: Sertraline 100 MG Tab PO SCH (08:13)
[2024-12-11] MEDS ORDERED: Enoxaparin 40 MG/0.4 ML Syringe SUBCUT SCH (18:00)
[2024-12-11] MEDS: Heparin Sodium 5,000 Units/ML Vial SUBCUT SCH (18:15)
[2024-12-12 07:56] LABS: BASOPHILS ABSOLUTE AUTO 0.11 K/uL (0.00-0.20); BASOPHILS PERCENT AUTO 0.8 % (0.0-1.0); EOSINOPHILS ABSOLUTE AUTO 0.85 K/uL (0.00-0.45); EOSINOPHILS PERCENT AUTO 6.4 % (0.0-6.0); HEMATOCRIT 37.7 % (37.0-47.0); HEMOGLOBIN 11.9 g/dL (12.0-16.0); IMMATURE GRAN ABSOLUTE AUTO 0.12 K/uL (0.00-0.05); IMMATURE GRAN PERCENT AUTO 0.9 % (0.0-0.4); LYMPHOCYTES PERCENT AUTO 19.7 % (24.0-44.0); MEAN CORPUSCULAR HEMOGLOBIN 26.6 pg (28.0-32.0); MEAN CORPUSCULAR HGB CONC 31.6 g/dL (32.0-36.0); MEAN CORPUSCULAR VOLUME 84.2 fL (83.0-99.0); MEAN PLATELET VOLUME 9.7 fL (9.4-12.3); MONOCYTES ABSOLUTE AUTO 0.84 K/uL (0.00-0.80); MONOCYTES PERCENT AUTO 6.4 % (0.0-8.0); NEUTROPHILS PERCENT AUTO 65.8 % (41.0-71.0); PLATELET COUNT,PLT 339 K/uL (150-400); RED BLOOD CELL COUNT 4.48 M/uL (4.10-5.30); WHITE BLOOD CELL COUNT,WBC 13.22 K/uL (3.9-11.3)
[2024-12-12 08:31] LABS: A/G RATIO 0.6 (0.9-1.6); ALBUMIN 2.6 g/dL (3.4-5.0); BILIRUBIN TOTAL 0.5 mg/dL (0.2-1.0); CALCIUM 8.6 mg/dL (8.5-10.1); CARBON DIOXIDE,CO2 25.4 mmol/L (21.0-32.0); EST CRCL DRUG DOSING (CG) 18.73 mL/min; POTASSIUM,K 4.2 mmol/L (3.5-5.1); PROTEIN TOTAL,TP 6.7 g/dL (6.4-8.2)
[2024-12-12] MEDS ORDERED: Insulin Glargine,Human Rec. Analog 100 Units/ML 3 ML Pen SUBCUT SCH (09:00)
[2024-12-12] MEDS: Insulin Glargine,Human Rec. Analog 100 Units/ML 3 ML Pen SUBCUT SCH (09:46)
[2024-12-12] MEDS: Bumetanide 1 MG Tab PO SCH (14:01)
[2024-12-13 06:38] LABS: BASOPHILS PERCENT AUTO 0.8 % (0.0-1.0); EOSINOPHILS ABSOLUTE AUTO 0.83 K/uL (0.00-0.45); EOSINOPHILS PERCENT AUTO 6.3 % (0.0-6.0); HEMATOCRIT 34.9 % (37.0-47.0); HEMOGLOBIN 11.1 g/dL (12.0-16.0); IMMATURE GRAN ABSOLUTE AUTO 0.13 K/uL (0.00-0.05); LYMPHOCYTES ABSOLUTE AUTO 2.53 K/uL (1.00-4.80); LYMPHOCYTES PERCENT AUTO 19.2 % (24.0-44.0); MEAN CORPUSCULAR HEMOGLOBIN 26.6 pg (28.0-32.0); MEAN CORPUSCULAR HGB CONC 31.8 g/dL (32.0-36.0); MEAN CORPUSCULAR VOLUME 83.7 fL (83.0-99.0); MONOCYTES ABSOLUTE AUTO 0.95 K/uL (0.00-0.80); MONOCYTES PERCENT AUTO 7.2 % (0.0-8.0); NEUTROPHILS ABSOLUTE AUTO 8.63 K/uL (1.80-7.70); NEUTROPHILS PERCENT AUTO 65.5 % (41.0-71.0); PLATELET COUNT,PLT 322 K/uL (150-400); RED BLOOD CELL COUNT 4.17 M/uL (4.10-5.30); WHITE BLOOD CELL COUNT,WBC 13.17 K/uL (3.9-11.3)
[2024-12-13 07:06] LABS: ALBUMIN 2.4 g/dL (3.4-5.0); BILIRUBIN TOTAL 0.4 mg/dL (0.2-1.0); CALCIUM 8.5 mg/dL (8.5-10.1); CARBON DIOXIDE,CO2 25.7 mmol/L (21.0-32.0); CREATININE 3.1 mg/dL (0.6-1.0); EST CRCL DRUG DOSING (CG) 17.93 mL/min; POTASSIUM,K 4.2 mmol/L (3.5-5.1); PROTEIN TOTAL,TP 6.1 g/dL (6.4-8.2)
[2024-12-13 07:10] LABS: A/G RATIO 0.7 (0.9-1.6)
[2024-12-13 17:07] VITALS: BP 183/73; PULSE 71
== END 2024-12-13 16:45 | disposition home or self-care (01) | DRG 291 ==
LOC: MW.ED 18:24 → OBSVTOIN 22:03 → MW.MS 22:03
PROVIDERS: ADMIT Internal Medicine; ATTEND Internal Medicine
DX: I13.0 Hypertensive heart and chronic kidney disease with heart failure and stage 1 through stage 4 chronic kidney disease, or unspecified chronic kidney disease (principal); I50.33 Acute on chronic diastolic (congestive) heart failure; N18.4 Chronic kidney disease, stage 4 (severe); Z68.42 Body mass index [BMI] 45.0-49.9, adult; N17.9 Acute kidney failure, unspecified; Z66 Do not resuscitate; E11.65 Type 2 diabetes mellitus with hyperglycemia; E11.22 Type 2 diabetes mellitus with diabetic chronic kidney disease; I25.10 Atherosclerotic heart disease of native coronary artery without angina pectoris; E66.9 Obesity, unspecified; H54.7 Unspecified visual loss; E78.00 Pure hypercholesterolemia, unspecified; I25.2 Old myocardial infarction; K21.9 Gastro-esophageal reflux disease without esophagitis; E11.21 Type 2 diabetes mellitus with diabetic nephropathy; R79.89 Other specified abnormal findings of blood chemistry; F41.9 Anxiety disorder, unspecified; F32.A Depression, unspecified; Z90.49 Acquired absence of other specified parts of digestive tract; Z88.8 Allergy status to other drugs, medicaments and biological substances; Z79.899 Other long term (current) drug therapy; Z98.890 Other specified postprocedural states; Z95.5 Presence of coronary angioplasty implant and graft; Z79.4 Long term (current) use of insulin; Z98.891 History of uterine scar from previous surgery; Z72.0 Tobacco use
CPT/HCPCS: 36415; 71046; 71046-26; 80048; 80053; 81001; 82947; 83690; 83735; 83880; 84703; 85025; 93306; 96374; 96376; 99285; 99285-25; A9270-GY; G0378; J1644; J1815-GY; J1940

== ENCOUNTER 2025-03-11 14:19 | Inpatient (IN) | payer MEDICAID ==
[2025-03-11] MEDS ORDERED: Sodium Chloride 0.9% 10 ML Syringe FLUSH PRN ×2 (14:44→20:26)
[2025-03-11] MEDS ORDERED: Sodium Chloride 0.9% 2.5 ML Syringe FLUSH PRN ×2 (14:44→20:26)
[2025-03-11 15:07] LABS: BASOPHILS ABSOLUTE AUTO 0.09 K/uL (0.00-0.20); BASOPHILS PERCENT AUTO 0.6 % (0.0-1.0); EOSINOPHILS ABSOLUTE AUTO 0.30 K/uL (0.00-0.45); EOSINOPHILS PERCENT AUTO 1.8 % (0.0-6.0); IMMATURE GRAN ABSOLUTE AUTO 0.19 K/uL (0.00-0.05); IMMATURE GRAN PERCENT AUTO 1.2 % (0.0-0.4); LYMPHOCYTES ABSOLUTE AUTO 2.10 K/uL (1.00-4.80); LYMPHOCYTES PERCENT AUTO 12.9 % (24.0-44.0); MEAN PLATELET VOLUME 9.0 fL (9.4-12.3); MONOCYTES ABSOLUTE AUTO 1.47 K/uL (0.00-0.80); MONOCYTES PERCENT AUTO 9.0 % (0.0-8.0); NEUTROPHILS ABSOLUTE AUTO 12.18 K/uL (1.80-7.70); NEUTROPHILS PERCENT AUTO 74.5 % (41.0-71.0); NRBC ABSOLUTE 0.00 K/uL (0.00-0.02); NRBC PERCENT 0.0 /100WBC (0.0-0.2); PLATELET COUNT,PLT 459 K/uL (150-400); RED BLOOD CELL COUNT 4.16 M/uL (4.10-5.30); WHITE BLOOD CELL COUNT,WBC 16.33 K/uL (3.9-11.3)
[2025-03-11 15:22] LABS: ALANINE AMINOTRANSFERASE,ALT 18.0 IU/L (14-63); ASPARTATE AMNIOTRANSFERASE,AST 10.0 IU/L (15-37); BILIRUBIN TOTAL 0.4 mg/dL (0.2-1.0); BLOOD UREA NITROGEN,BUN 52.0 mg/dL (7.0-18.0); CARBON DIOXIDE,CO2 26.3 mmol/L (21.0-32.0); CHLORIDE,CL 103.0 mmol/L (98-107); CREATININE 4.0 mg/dL (0.6-1.0); EST CRCL DRUG DOSING (CG) 14.54 mL/min; GLUCOSE RANDOM 116.0 mg/dL (74-106); POTASSIUM,K 3.6 mmol/L (3.5-5.1); PROTEIN TOTAL,TP 6.8 g/dL (6.4-8.2); SODIUM,NA 140.0 mmol/L (136-145)
[2025-03-11 15:26] LABS: A/G RATIO 0.5 (0.9-1.6); ESTIMATED GFR 13.0 mL/min (>60)
[2025-03-11] MEDS: VANCOmycin 2 GM/400 ML 2 GM in Premix Bag 1 BAG IV ONE (15:33)
[2025-03-11 15:43] LABS: LACTIC ACID 0.6 mmol/L (0.4-2.0)
[2025-03-11 15:49] LABS: APPEARANCE,URINE CLEAR; GLUCOSE,URINE 100 mg/dL (NEGATIVE); OCCULT BLOOD,URINE SMALL (NEGATIVE)
[2025-03-11 16:01] LABS: EPITHELIAL CELLS,URINE RARE (NONE-FEW)
[2025-03-11] MEDS: fentaNYL 50 MCG/ML SDV IVPUSH ONE (16:27)
[2025-03-11] MEDS: Ondansetron 4 MG/2 ML SDV IVPUSH ONE (16:27)
[2025-03-11] MEDS ORDERED: Ondansetron 4 MG/2 ML SDV IVPUSH PRN (20:26)
[2025-03-11] MEDS ORDERED: 50% Dextrose in Water 50 ML Syringe IVPUSH PRN (21:08)
[2025-03-11] MEDS: Insulin Glargine,Human Rec. Analog 100 Units/ML 3 ML Pen SUBCUT SCH (22:17)
[2025-03-11] MEDS: Nystatin Topical Powder 15 GM Bottle TOP SCH (22:19)
[2025-03-12 05:25] LABS: MEAN PLATELET VOLUME 9.1 fL (9.4-12.3); NRBC ABSOLUTE 0.00 K/uL (0.00-0.02); NRBC PERCENT 0.0 /100WBC (0.0-0.2); PLATELET COUNT,PLT 380 K/uL (150-400); RED BLOOD CELL COUNT 3.53 M/uL (4.10-5.30); WHITE BLOOD CELL COUNT,WBC 15.56 K/uL (3.9-11.3)
[2025-03-12 05:45] LABS: BLOOD UREA NITROGEN,BUN 54.0 mg/dL (7.0-18.0); CARBON DIOXIDE,CO2 23.5 mmol/L (21.0-32.0); CHLORIDE,CL 104.0 mmol/L (98-107); CREATININE 4.3 mg/dL (0.6-1.0); EST CRCL DRUG DOSING (CG) 13.52 mL/min; GLUCOSE RANDOM 117.0 mg/dL (74-106); POTASSIUM,K 3.6 mmol/L (3.5-5.1); SODIUM,NA 141.0 mmol/L (136-145); VANCOMYCIN RANDOM 24.1 ug/mL
[2025-03-12 05:48] LABS: ESTIMATED GFR 12.0 mL/min (>60)
[2025-03-12 05:58] LABS: LYMPHOCYTES ABSOLUTE MAN 1.87 K/uL (1.00-4.80); LYMPHOCYTES PERCENT MAN 12 % (24-44); MONOCYTES ABSOLUTE MAN 1.24 K/uL (0.00-0.80); MONOCYTES PERCENT MAN 8 % (0-8); SEG NEUTROPHILS ABSOLUTE MAN 11.67 K/uL (1.80-7.70); SEG NEUTROPHILS PERCENT MAN 75 % (41-71)
[2025-03-12 05:59] LABS: BASOPHILS ABSOLUTE MAN 0.16 K/uL (0.00-0.20); BASOPHILS PERCENT MAN 1 % (0-1); EOSINOPHILS ABSOLUTE MAN 0.62 K/uL (0.00-0.45); EOSINOPHILS PERCENT MAN 4 % (0-6)
[2025-03-12] MEDS: Bumetanide 1 MG/4 ML MDV IVPUSH SCH (10:32)
[2025-03-12] MEDS: Bumetanide 1 MG/4 ML MDV IVPUSH ONE (15:02)
[2025-03-13 05:57] LABS: BLOOD UREA NITROGEN,BUN 58.0 mg/dL (7.0-18.0); CARBON DIOXIDE,CO2 22.7 mmol/L (21.0-32.0); CHLORIDE,CL 102.0 mmol/L (98-107); CREATININE 4.6 mg/dL (0.6-1.0); EST CRCL DRUG DOSING (CG) 12.64 mL/min; GLUCOSE RANDOM 96.0 mg/dL (74-106); POTASSIUM,K 4.0 mmol/L (3.5-5.1); SODIUM,NA 139.0 mmol/L (136-145)
[2025-03-13 06:09] LABS: ESTIMATED GFR 11.0 mL/min (>60)
[2025-03-13] MEDS: Bumetanide 1 MG/4 ML MDV IVPUSH SCH (08:52)
[2025-03-13 09:18] LABS: MEAN PLATELET VOLUME 9.6 fL (9.4-12.3); NRBC ABSOLUTE 0.00 K/uL (0.00-0.02); NRBC PERCENT 0.0 /100WBC (0.0-0.2); PLATELET COUNT,PLT 434 K/uL (150-400); RED BLOOD CELL COUNT 3.66 M/uL (4.10-5.30); WHITE BLOOD CELL COUNT,WBC 17.58 K/uL (3.9-11.3)
[2025-03-13 09:47] LABS: BASOPHILS ABSOLUTE MAN 0.18 K/uL (0.00-0.20); BASOPHILS PERCENT MAN 1 % (0-1); LYMPHOCYTES ABSOLUTE MAN 2.11 K/uL (1.00-4.80); LYMPHOCYTES PERCENT MAN 12 % (24-44); MONOCYTES ABSOLUTE MAN 1.76 K/uL (0.00-0.80); MONOCYTES PERCENT MAN 10 % (0-8); SEG NEUTROPHILS ABSOLUTE MAN 13.54 K/uL (1.80-7.70); SEG NEUTROPHILS PERCENT MAN 77 % (41-71)
[2025-03-13 13:00] VITALS: BP 151/67; PULSE 76
== END 2025-03-13 13:00 | DRG 603 ==
LOC: MW.ED 14:19 → MW.MS 18:25
PROVIDERS: ADMIT Family Medicine; ATTEND Family Medicine
DX: L03.311 Cellulitis of abdominal wall (principal); Z68.42 Body mass index [BMI] 45.0-49.9, adult; N18.5 Chronic kidney disease, stage 5; I13.2 Hypertensive heart and chronic kidney disease with heart failure and with stage 5 chronic kidney disease, or end stage renal disease; N04.9 Nephrotic syndrome with unspecified morphologic changes; M79.3 Panniculitis, unspecified; E78.5 Hyperlipidemia, unspecified; E66.01 Morbid (severe) obesity due to excess calories; H54.7 Unspecified visual loss; E78.00 Pure hypercholesterolemia, unspecified; I25.2 Old myocardial infarction; K21.9 Gastro-esophageal reflux disease without esophagitis; E11.21 Type 2 diabetes mellitus with diabetic nephropathy; F17.200 Nicotine dependence, unspecified, uncomplicated; F41.9 Anxiety disorder, unspecified; F32.A Depression, unspecified; E86.0 Dehydration; E03.9 Hypothyroidism, unspecified; I25.10 Atherosclerotic heart disease of native coronary artery without angina pectoris; E65 Localized adiposity; E11.22 Type 2 diabetes mellitus with diabetic chronic kidney disease; R60.1 Generalized edema; Z88.8 Allergy status to other drugs, medicaments and biological substances; Z86.73 Personal history of transient ischemic attack (TIA), and cerebral infarction without residual deficits; Z90.49 Acquired absence of other specified parts of digestive tract; Z98.891 History of uterine scar from previous surgery; Z98.890 Other specified postprocedural states; Z79.4 Long term (current) use of insulin; Z95.5 Presence of coronary angioplasty implant and graft; Z79.899 Other long term (current) drug therapy
CPT/HCPCS: 36415; 71045; 71045-26; 74176; 74176-26; 80048; 80053; 80202; 81001; 82947; 83605; 83690; 83735; 85025; 87040; 93005; 96365; 96366; 96367; 96375; 99222; 99232; 99239; 99284; 99285-25; A9270-GY; J0692; J1815-GY; J2405; J2543; J3010; J3370; J3372; J3490; J7040

== ENCOUNTER 2025-06-09 17:58 | Inpatient (IN) | payer MEDICAID ==
[2025-06-09] MEDS ORDERED: diphenhydrAMINE 50 MG/ML SDV IVPUSH PRN (19:46)
[2025-06-09] MEDS ORDERED: Naloxone 0.4 MG/ML SDV IVPUSH PRN (19:46)
[2025-06-09] MEDS ORDERED: Ondansetron 4 MG/2 ML SDV IVPUSH PRN (19:46)
[2025-06-09] MEDS: HYDROmorphone/Normal Saline 6 MG/30 ML PCA Vial IV PRN (20:08)
[2025-06-09] MEDS ORDERED: Sodium Chloride 0.9% 10 ML Syringe FLUSH PRN (21:38)
[2025-06-09] MEDS ORDERED: Sodium Chloride 0.9% 2.5 ML Syringe FLUSH PRN (21:38)
[2025-06-11 10:31] VITALS: BP 123/55; PULSE 80
== END 2025-06-11 13:38 | disposition hospice, home (50) | DRG 951 ==
LOC: MW.MS 17:58
PROVIDERS: ADMIT Internal Medicine; ATTEND Internal Medicine
DX: Z51.5 Encounter for palliative care (principal); N18.6 End stage renal disease; I12.0 Hypertensive chronic kidney disease with stage 5 chronic kidney disease or end stage renal disease; Z66 Do not resuscitate; E83.59 Other disorders of calcium metabolism; H54.7 Unspecified visual loss; E78.00 Pure hypercholesterolemia, unspecified; K21.9 Gastro-esophageal reflux disease without esophagitis; E11.22 Type 2 diabetes mellitus with diabetic chronic kidney disease; F41.9 Anxiety disorder, unspecified; F32.A Depression, unspecified; E66.9 Obesity, unspecified; S31.109A Unspecified open wound of abdominal wall, unspecified quadrant without penetration into peritoneal cavity, initial encounter; Z88.8 Allergy status to other drugs, medicaments and biological substances; Z79.4 Long term (current) use of insulin; Z79.02 Long term (current) use of antithrombotics/antiplatelets; Z79.899 Other long term (current) drug therapy; I25.2 Old myocardial infarction; Z95.5 Presence of coronary angioplasty implant and graft; Z86.73 Personal history of transient ischemic attack (TIA), and cerebral infarction without residual deficits; Z68.37 Body mass index [BMI] 37.0-37.9, adult; Z98.890 Other specified postprocedural states; Z90.89 Acquired absence of other organs; Z87.891 Personal history of nicotine dependence; X58.XXXA Exposure to other specified factors, initial encounter
CPT/HCPCS: A9270-GY; J1171